=== PATIENT | male | born 1950 | race American Indian/Alaskan Native ===

== ENCOUNTER 2016-07-15 18:23 | Inpatient (IN) | payer BC, OTHER ==
--- NOTE | 2016-07-15 18:37 | PDOC ---
History of Present Illness - General Chief Complaint: Alcohol intoxication Stated Complaint: R EAR BLEED/INTOX Time Seen by Provider: 07/15/16 18:31 History Source: Patient Exam Limitations: No Limitations - History of Present Illness Initial Comments: CHIEF COMPLAINT: 65 y/o male BIB EMS with bleeding from left ear. HISTORY OF PRESENT ILLNESS: The patient's left the patient at home at 2pm. She came home around 5pm and found him in the bed, bleeding from his left ear. The patient refuses to say what happened. He is only c/o chest pain. He denies alcohol ingestion today. He is a poor historian. He is on plavix. Vital signs on arrival are within normal limits. REVIEW OF SYSTEMS: (Poor historian; received ROS from EMS) GENERAL/CONSTITUTIONAL: No fever HEAD, EYES, EARS, NOSE AND THROAT: +bleeding from left ear and swollen left face. PHYSICAL EXAM: GENERAL: The patient is awake, alert, with slowed responses but in NAD. HEAD: Swelling and ecchymosis to the left side of the face where the mandible meets the ear with TTP in that area. ENT: Pupils equal, round and reactive to light, extraocular movements intact, sclera anicteric, conjunctiva clear. Neck supple. Copious clotted blood seen in the left ear canal. Appears to be a skin flap at the entrance to the left canal at the tragus. Cannot tell whether the laceration extends into the canal. LUNGS: Clear to auscultation bilaterally. Normal excursion. No respiratory distress or use of accessory muscles. CV: RRR, S1/S2, no MRG. Cap refill < 2 sec. ABDOMEN: Soft, non-distended, non-tender even to deep palpation, no hepatomegaly or splenomegaly, no masses. EXTREMITIES: Normal range of motion, no edema. NEUROLOGICAL: Slowed speech. Gait not assessed in the ER. Pt A&O x 3. his speech is slurred SKIN: Warm, dry, normal turgor, no rashes or lesions noted. Past History - Past Medical History Allergies/Adverse Reactions: Allergies Allergy/AdvReac Type Severity Reaction Status Date / Time No Known Allergies Allergy Verified 07/15/16 18:38 Home Medications: Ambulatory Orders Aspirin [ASA -] 81 mg PO DAILY 06/06/12 Carvedilol [Coreg] 25 mg PO BID 12/09/12 Metformin HCl [Glucophage] 1,000 mg PO BID 06/06/12 Clopidogrel Bisulfate [Plavix] 75 mg PO DAILY 06/25/12 Cardiac Disorders: Yes (cad, 2 stents) Diabetes: Yes HTN: Yes Suicide Attempt (Hx): No - Surgical History Cardiac Surgery: Yes (card stent) - Immunization History Immunization Up to Date: Yes - Psycho/Social/Smoking Cessation Hx Anxiety: No Suicidal Ideation: No Smoking Status: No Smoking History: Never smoked Number of Cigarettes Smoked Daily: 0 Hx Alcohol Use: Yes Drug/Substance Use Hx: No Substance Use Type: Alcohol Procedures - Laceration/Wound Repair Left Ear Wound Length: 2.6 to 5.0 cm Wound Explored: clean Wound's Depth, Shape: into muscle, irregular, flap Irrigated w/ Saline: Yes Betadine Prep: Yes Anesthesia: 1% Lidocaine Amount of Anesthetic (ccs): 4 Suture Size/Type: 4:0 Number of Sutures: 5 Heart Score/ECG Review - ECG Intrepretation Comment:: Twelve-lead EKG was performed and reviewed by Dr. Tolliver. There is normal sinus rhythm with a normal rate. Left axis deviation. The intervals are normal. Inferior infarct, age undetermined. Impression: Abnormal twelve-lead EKG ED Treatment Course - LABORATORY CBC & Chemistry Diagram: 07/15/16 18:40 07/15/16 18:40 Medical Decision Making - Medical Decision Making A/P: 65 y/o male with unknown facial/head trauma, bleeding from left ear, possibly intoxicated. Plan is as follows: 1. Labs 2. ETOH/drug screen 3. Head CT 4. Facial bones CT 5. IV fluids Head CT IMPRESSION: No CT evidence of acute intracranial pathology. There is partial opacification of the left external auditory canal probably representing cerumen , and less likely other material. correlate clinically. Facial Bones CT IMPRESSION: No fracture is identified. Subcutaneous edema is seen along the left lateral aspect of the mid to upper face. There also appears to be soft tissue edema in the region of the pinna of the left ear. There is partial opacification of the left external auditory canal which may be on the basis of cerumen, edema and/or blood. Correlate clinically. No gross temporal bone fracture is visualized. Laboratory Tests 07/15/16 18:40 Total Bilirubin 1.2 H AST 79 H D ALT 54 D Alkaline Phosphatase 256 H D Creatine Kinase 732 H D Creatine Kinase Index Pending CK-MB (CK-2) 4.096 H Sutured patient's ear and was able to control the bleeding. Spoke with Erik García and he accepts admission. He would like Dr. Cisneros, Dr. Zaragoza, Dr. Blood and Dr. Arguello for consults. He would like the patient on tele. 07/16/16 00:55 *DC/Admit/Observation/Transfer Diagnosis at time of Disposition: Laceration of ear Head trauma Qualifiers: Encounter type: initial encounter Qualified Code(s): S09.90XA - Unspecified injury of head, initial encounter Alcohol intoxication Qualifiers: Complication of substance-induced condition: with unspecified complication Qualified Code(s): F10.129 - Alcohol abuse with intoxication, unspecified Facial trauma Qualifiers: Encounter type: initial encounter Qualified Code(s): S09.93XA - Unspecified injury of face, initial encounter Chest pain Qualifiers: Chest pain type: unspecified Qualified Code(s): R07.9 - Chest pain, unspecified - Discharge Dispostion Condition at time of disposition: Stable Admit: Yes - Referrals Referrals: Cheyenne Mckinley MD [Primary Care Provider] -
[2016-07-15 18:58] LABS: MCH 34.9 pg (25.7-33.7); MCHC 34.4 g/dl (32.0-35.9); MEAN CELL VOLUME 101.7 fl (80-96); MEAN PLT VOLUME 8.8 fl (7.5-11.1); PLATELET COUNT 91 K/MM3 (134-434); RDW 14.1 % (11.9-15.9); WHITE BLOOD COUNT 6.1 K/mm3 (4.0-10.0)
[2016-07-15 19:07] VITALS: BMI 25.0
[2016-07-15 19:12] LABS: INR 1.34 (0.82-1.09); PROTHROMBIN TIME (PATIENT) 14.8 SEC (9.98-11.88)
[2016-07-15 19:33] LABS: ALBUMIN 3.4 g/dl (3.4-5.0); ANION GAP 9 (8-16); BILIRUBIN,TOTAL 1.2 mg/dL (0.2-1.0); CALCIUM 8.8 mg/dL (8.5-10.1); CO2 24 mmol/L (21-32); CREATININE 0.8 mg/dL (0.7-1.3); GLUCOSE,RANDOM 178 mg/dL (74-106); SGOT/AST 79 U/L (15-37); SGPT/ALT 54 U/L (12-78); TOT PROT 8.2 g/dl (6.4-8.2)
[2016-07-15 19:35] LABS: ALK PHOS 256 U/L (45-117); TROPONIN I < 0.02 ng/ml (0.00-0.05)
[2016-07-15 20:02] LABS: PLATELET ESTIMATE SLT DECREASED (NORMAL)
[2016-07-15 20:03] LABS: PLATELET COMMENT2 NO CLOTTING DETECTED
[2016-07-15] MEDS ORDERED: SODIUM CHLORIDE 1,000 ML IV STA (23:34)
[2016-07-15] MEDS ORDERED: DEXTROSE 5%-0.45% SALINE 1,000 ML IV SCH (23:45)
[2016-07-15] MEDS ORDERED: ACETAMINOPHEN 325 MG TABLET (FP) PO PRN (23:49)
[2016-07-16] MEDS ORDERED: FOLIC ACID 1 MG TABLET (FP) PO ONE (00:13)
[2016-07-16] MEDS ORDERED: POTASSIUM CHLORIDE 10 MEQ in SODIUM CHLORIDE 0.45% 1,000 ML IVPB SCH (00:15)
[2016-07-16] MEDS ORDERED: FOLIC ACID 1 MG TABLET (FP) ONE (01:24)
[2016-07-16] MEDS ORDERED: KCL 10 MEQ IVPB 100 ML IVPB ONE (01:25)
[2016-07-16 01:53] LABS: URINE APPEARANCE CLEAR; URINE BILIRUBIN NEGATIVE (NEGATIVE); URINE BLOOD NEGATIVE (NEGATIVE); URINE COLOR LTYELLOW; URINE GLUCOSE (UA) 1+ (NEGATIVE); URINE KETONE NEGATIVE (NEGATIVE); URINE LEUK ESTERASE NEGATIVE (NEGATIVE); URINE NITRITE NEGATIVE (NEGATIVE); URINE PROTEIN NEGATIVE (NEGATIVE); URINE UROBILINOGEN NEGATIVE E.U./dl (0.2-1.0)
[2016-07-16 03:58] LABS: URINE MARIJUANA THC NEGATIVE ng/ml (CUTOFF=50)
[2016-07-16 04:32] VITALS: BP 130/69; PULSE 91; TEMP 98.2
[2016-07-16] MEDS ORDERED: PNEUMOC 13-VAL CONJ-DIP CRM/PF 0.5 ML DISP.SYRIN IM ONE (04:32)
[2016-07-16] MEDS ORDERED: PNEUMOCOCCAL 23 VACCINE 0.5 ML VIAL IM ONE ×2 (06:30→09:00)
[2016-07-16 07:19] LABS: BASOPHIL 1.3 % (0-2.0); MCH 36.2 pg (25.7-33.7); MCHC 35.9 g/dl (32.0-35.9); MEAN CELL VOLUME 100.8 fl (80-96); MEAN PLT VOLUME 8.3 fl (7.5-11.1); NEUTROPHILS 51.8 % (42.8-82.8); PLATELET COUNT 80 K/MM3 (134-434); RDW 14.3 % (11.9-15.9); WHITE BLOOD COUNT 6.9 K/mm3 (4.0-10.0)
[2016-07-16 08:26] LABS: CALCIUM 8.4 mg/dL (8.5-10.1)
[2016-07-16 08:28] LABS: CREATININE 0.7 mg/dL (0.7-1.3)
--- NOTE | 2016-07-16 09:42 | CONSULT ---
Consult Consult Specialty:: Cardiology - History of Present Illness History of Present Illness: CHIEF COMPLAINT: 65 y/o male BIB EMS with bleeding from left ear. HISTORY OF PRESENT ILLNESS: The patient's left the patient at home at 2pm. She came home around 5pm and found him in the bed, bleeding from his left ear. The patient refuses to say what happened. He is only c/o chest pain. He denies alcohol ingestion today. He is a poor historian. He is on plavix. PCI stent 10 years ago at [facility]. no f/u with cardiology - History Source History Provided By: Patient, Medical Record - Past Medical History Cardio/Vascular: Yes: CAD Endocrine: Yes: Diabetes Mellitus - Alcohol/Substance Use Hx Alcohol Use: Yes - Smoking History Smoking history: Never smoked Have you smoked in the past 12 months: No Aproximately how many cigarettes per day: 0 Home Medications - Allergies Allergies/Adverse Reactions: Allergies Allergy/AdvReac Type Severity Reaction Status Date / Time No Known Allergies Allergy Verified 07/15/16 18:38 - Home Medications Home Medications: Ambulatory Orders Aspirin [ASA -] 81 mg PO DAILY 06/06/12 Carvedilol [Coreg] 25 mg PO BID 06/06/12 Metformin HCl [Glucophage] 1,000 mg PO BID 06/06/12 Clopidogrel Bisulfate [Plavix] 75 mg PO DAILY 06/25/12 Review of Systems - Review of Systems Constitutional: reports: No Symptoms Eyes: reports: No Symptoms HENT: reports: No Symptoms Neck: reports: No Symptoms Cardiovascular: reports: No Symptoms Gastrointestinal: reports: No Symptoms Genitourinary: reports: No Symptoms Breasts: reports: No Symptoms Reported Musculoskeletal: reports: No Symptoms Integumentary: reports: No Symptoms Neurological: reports: No Symptoms Endocrine: reports: No Symptoms Hematology/Lymphatic: reports: No Symptoms Psychiatric: reports: No Symptoms Vital Signs: Vital Signs Temperature 98.2 F 07/16/16 04:22 Pulse Rate 91 H 07/16/16 04:22 Respiratory Rate 20 07/16/16 04:22 Blood Pressure 130/69 07/16/16 04:22 O2 Sat by Pulse Oximetry (%) 97 07/16/16 04:22 Constitutional: Yes: Well Nourished, No Distress, Calm Eyes: Yes: WNL, Conjunctiva Clear, EOM Intact HENT: Yes: WNL, Atraumatic, Normocephalic, Other (l side fascial swelling) Neck: Yes: WNL, Supple, Trachea Midline Respiratory: Yes: WNL, Regular, CTA Bilaterally Gastrointestinal: Yes: WNL, Normal Bowel Sounds Renal/: Yes: WNL Cardiovascular: Yes: WNL, Regular Rate and Rhythm Musculoskeletal: Yes: WNL Extremities: Yes: WNL Integumentary: Yes: WNL Neurological: Yes: WNL, Alert, Oriented ...Motor Strength: WNL Psychiatric: Yes: WNL, Alert, Oriented - Other Data Labs, Other Data: CBC, BMP 07/16/16 05:35 07/16/16 05:35 INR, PTT INR 1.34 (0.82-1.09) H 07/15/16 18:40 Imaging - Results Chest X-ray: Image Reviewed (no i/e) EKG: Image Reviewed (sr rep abn) Problem List - Problems (1) Alcohol intoxication Code(s): F10.129 - ALCOHOL ABUSE WITH INTOXICATION, UNSPECIFIED Qualifiers: Complication of substance-induced condition: with unspecified complication Qualified Code(s): F10.129 - Alcohol abuse with intoxication, unspecified (2) Chest pain Code(s): R07.9 - CHEST PAIN, UNSPECIFIED Qualifiers: Chest pain type: unspecified Qualified Code(s): R07.9 - Chest pain, unspecified (3) Facial trauma Code(s): S09.93XA - UNSPECIFIED INJURY OF FACE, INITIAL ENCOUNTER Qualifiers: Encounter type: initial encounter Qualified Code(s): S09.93XA - Unspecified injury of face, initial encounter (4) Head trauma Code(s): S09.90XA - UNSPECIFIED INJURY OF HEAD, INITIAL ENCOUNTER Qualifiers: Encounter type: initial encounter Qualified Code(s): S09.90XA - Unspecified injury of head, initial encounter (5) Laceration of ear Code(s): S01.319A - LACERATION WITHOUT FOREIGN BODY OF UNSP EAR, INIT ENCNTR Assessment/Plan etoh intoxication noncomplience dm cad s/p pci atypical cp plan hld telemetry r/o mi echo mibi st when stable keep ldl below 70 mg/dl etoh detox
--- NOTE | 2016-07-16 09:56 | CONSULT ---
Consult Consult Specialty:: [facility] Referred by:: Mayo Reason for Consultation:: Head Trauma - History of Present Illness History of Present Illness: 65 man with pmh CAD OA DM presented with facial and head trauma ptient signed ourt AMA - History Source History Provided By: Patient, Family Member Limitations to Obtaining History: No Limitations - Alcohol/Substance Use Hx Alcohol Use: Yes - Smoking History Smoking history: Never smoked Have you smoked in the past 12 months: No Aproximately how many cigarettes per day: 0 Home Medications - Allergies Allergies/Adverse Reactions: Allergies Allergy/AdvReac Type Severity Reaction Status Date / Time No Known Allergies Allergy Verified 07/15/16 18:38 - Home Medications Home Medications: Ambulatory Orders Aspirin [ASA -] 81 mg PO DAILY 06/06/12 Carvedilol [Coreg] 25 mg PO BID 06/06/12 Metformin HCl [Glucophage] 1,000 mg PO BID 06/06/12 Clopidogrel Bisulfate [Plavix] 75 mg PO DAILY 06/25/12 Family Disease History - Family Disease History Family History: Denies (CVA) Review of Systems - Review of Systems Constitutional: reports: No Symptoms Eyes: reports: No Symptoms HENT: reports: No Symptoms Physical Exam-Neuro Vital Signs: Vital Signs Temperature 98.2 F 07/16/16 04:22 Pulse Rate 91 H 07/16/16 04:22 Respiratory Rate 20 07/16/16 04:22 Blood Pressure 130/69 07/16/16 04:22 O2 Sat by Pulse Oximetry (%) 97 07/16/16 04:22 Constitutional: Yes: Well Nourished Neck: Yes: WNL Labs: CBC, BMP 07/16/16 05:35 07/16/16 05:35 INR, PTT INR 1.34 (0.82-1.09) H 07/15/16 18:40 - Neuro Exam Level Of Consciousness: Yes: Oriented to Person, Oriented to Place, Oriented to Time Eyes: Yes: PERRLA Speech: WNL Dominant Hand: Right Imaging - Results Cat Scan: Image Reviewed Problem List - Problems (1) Alcohol intoxication Code(s): F10.129 - ALCOHOL ABUSE WITH INTOXICATION, UNSPECIFIED Qualifiers: Complication of substance-induced condition: with unspecified complication Qualified Code(s): F10.129 - Alcohol abuse with intoxication, unspecified (2) Head trauma Code(s): S09.90XA - UNSPECIFIED INJURY OF HEAD, INITIAL ENCOUNTER Qualifiers: Encounter type: initial encounter Qualified Code(s): S09.90XA - Unspecified injury of head, initial encounter Assessment/Plan Postconcussion syndrome Head Trauma Seizure rule out 1. Neuro checks 2. Fall and seizure precautions 3. EEG 4. Thiamine and Folate 5. Blood work
[2016-07-16] MEDS ORDERED: PANTOPRAZOLE SODIUM 100 ML IVPB SCH (10:00)
[2016-07-16] MEDS ORDERED: THIAMINE HCL 200 MG/2 ML VIAL IVPB SCH (10:00)
--- NOTE | 2016-07-16 10:30 | EKG ---
Test Reason : Blood Pressure : / mmHG Vent. Rate : 076 BPM Atrial Rate : 076 BPM P-R Int : 202 ms QRS Dur : 098 ms QT Int : 394 ms P-R-T Axes : 036 -63 043 degrees QTc Int : 443 ms NORMAL SINUS RHYTHM LEFT AXIS DEVIATION INFERIOR INFARCT (CITED ON OR BEFORE 18-APR-2012) ABNORMAL ECG WHEN COMPARED WITH ECG OF 02-DEC-2015 11:59, QT HAS SHORTENED Confirmed by BRIAN PEARSON, JACK ([id number]) on 07/16/2016 10:30:03 AM Referred By: Confirmed By:JACK TORRES MD
--- NOTE | 2016-07-16 15:03 | HP ---
Admitting History and Physical - Primary Care Physician PCP: Dr Childs/ Dr Mckinley - Admission Chief Complaint: Pt had Lt sided facial Injury,ETOH abuse History of Present Illness: Lt sided Facial Injury ETOH abuse History Source: Patient, Family Member Limitations to Obtaining History: Intoxication, Uncooperative - Past Medical History Cardiovascular: Yes: CAD Endocrine: Yes: Diabetes Mellitus - Smoking History Smoking history: Never smoked Have you smoked in the past 12 months: No Aproximately how many cigarettes per day: 0 - Alcohol/Substance Use Hx Alcohol Use: Yes Home Medications - Allergies Allergies/Adverse Reactions: Allergies Allergy/AdvReac Type Severity Reaction Status Date / Time No Known Allergies Allergy Verified 07/15/16 18:38 - Home Medications Home Medications: Ambulatory Orders Aspirin [ASA -] 81 mg PO DAILY 06/06/12 Carvedilol [Coreg] 25 mg PO BID 06/06/12 Metformin HCl [Glucophage] 1,000 mg PO BID 06/06/12 Clopidogrel Bisulfate [Plavix] 75 mg PO DAILY 06/25/12 Family Disease History - Family Disease History Family History: Unable to Obtain Review of Systems - Review of Systems Constitutional: reports: Lethargy HENT: reports: Ear Pain, Other Cardiovascular: reports: Other Respiratory: reports: No Symptoms Gastrointestinal: reports: No Symptoms Genitourinary: reports: No Symptoms Integumentary: reports: Bruising (Lt facial Injury) Physical Examination Vital Signs: Vital Signs Temperature 98.2 F 07/16/16 04:22 Pulse Rate 91 H 07/16/16 04:22 Respiratory Rate 20 07/16/16 04:22 Blood Pressure 130/69 07/16/16 04:22 O2 Sat by Pulse Oximetry (%) 96 07/16/16 09:00 Labs: CBC, BMP 07/16/16 05:35 07/16/16 05:35 Problem List - Problems (1) Alcohol intoxication Assessment/Plan: ETOh protocol Code(s): F10.129 - ALCOHOL ABUSE WITH INTOXICATION, UNSPECIFIED Qualifiers: Complication of substance-induced condition: with unspecified complication (2) Chest pain Code(s): R07.9 - CHEST PAIN, UNSPECIFIED Qualifiers: Chest pain type: unspecified Qualified Code(s): R07.9 - Chest pain, unspecified (3) Facial trauma Assessment/Plan: Neuro watch/ Neuro consult Code(s): S09.93XA - UNSPECIFIED INJURY OF FACE, INITIAL ENCOUNTER Qualifiers: Encounter type: initial encounter Qualified Code(s): S09.93XA - Unspecified injury of face, initial encounter (4) Head trauma Assessment/Plan: Neurowatch Code(s): S09.90XA - UNSPECIFIED INJURY OF HEAD, INITIAL ENCOUNTER Qualifiers: Encounter type: initial encounter Qualified Code(s): S09.90XA - Unspecified injury of head, initial encounter (5) Laceration of ear Assessment/Plan: ENT consult Code(s): S01.319A - LACERATION WITHOUT FOREIGN BODY OF UNSP EAR, INIT ENCNTR
== END 2016-07-16 10:45 | disposition left against medical advice (07) | DRG 156 ==
LOC: JER 18:23 → JERBED 23:50 → J4W 07-16 04:20
PROVIDERS: ADMIT Internal Medicine; ATTEND Internal Medicine
DX: S01.312A Laceration without foreign body of left ear, initial encounter (principal); I25.10 Atherosclerotic heart disease of native coronary artery without angina pectoris; E11.9 Type 2 diabetes mellitus without complications; F10.129 Alcohol abuse with intoxication, unspecified; R07.89 Other chest pain; S09.90XA Unspecified injury of head, initial encounter; S09.93XA Unspecified injury of face, initial encounter; X58.XXXA Exposure to other specified factors, initial encounter; Y92.098 Other place in other non-institutional residence as the place of occurrence of the external cause; M19.90 Unspecified osteoarthritis, unspecified site
CPT/HCPCS: 36415; 70450-TC; 70486-TC; 71010-TC; 80048; 80053; 80307; 81003; 82550; 82553; 84484; 85025; 85610; 93005; 93010; 99285-25

== ENCOUNTER 2017-05-26 07:31 | Day surgery (SDC) | payer OTHER, BC ==
[2017-05-26] MEDS ORDERED: PROPOFOL 20 ML ONE ×2 (07:50)
[2017-05-26] MEDS ORDERED: LIDOCAINE HCL 2% (20ML MULTI-DOSE VIAL) NR ONE (07:50)
[2017-05-26 08:03] VITALS: BMI 23.3
[2017-05-26 08:31] VITALS: TEMP 97.8
[2017-05-26 09:07] VITALS: PULSE 62
[2017-05-26 10:50] VITALS: BP 137/81
--- NOTE | 2017-05-27 15:41 | PATH ---
Surgical Pathology Report Patient Name: YESENIA ABERNATHY [facility]. Rec. #: [id number] /Age/Gender: 1950 (Age: 66) / M Account: [id number] Location: U-ENDOSCOPY Taken: 05/26/2017 Received: 05/26/2017 Reported: 05/27/2017 Physicians: Javed Contreras M.D. Specimen(s) Received BX ANTRUM Clinical History Preoperative diagnosis: Follow-up alcoholic cirrhosis Postoperative diagnosis: Gastric varices Final Diagnosis ANTRUM, BIOPSY: GASTRIC MUCOSA SHOWING VASCULAR CONGESTION WITH MINIMALCHRONIC INFLAMMATION. IMMUNOSTAIN IS NEGATIVE FOR H. PYLORI ORGANISMS. Electronically Signed Marisa Park M.D. Gross Description Received in formalin, labeled "biopsy antrum" are 2 raphael, irregular portions of soft tissue measuring 0.4 and 0.6 cm. in greatest dimension. The specimens are submitted in toto in one cassette. 05/26/201705/26/2017
== END 2017-05-26 09:10 | disposition home or self-care (01) ==
LOC: JASU-ENDO 07:31
PROVIDERS: ATTEND Internal Medicine Gastroenterology
PROC: 0DB68ZX Excision of Stomach, Via Natural or Artificial Opening Endoscopic, Diagnostic (ICD-10-PCS; principal; 2017-05-26 08:45)
DX: I85.00 Esophageal varices without bleeding (principal); I86.4 Gastric varices; K70.30 Alcoholic cirrhosis of liver without ascites
CPT/HCPCS: 88305-TC; 88342-TC

== ENCOUNTER 2018-06-04 08:39 | Inpatient (IN) | payer OTHER, BC ==
--- NOTE | 2018-06-04 08:51 | PDOC ---
History of Present Illness - General Chief Complaint: Chest Pain Stated Complaint: CHEST PAIN - History of Present Illness Initial Comments: The patient is a 67M w/ a history of CAD s/p stent x2 10y ago, HTN, T2DM who presents for evaluation of 3d of intermittent, non-radiating, 'cramping', left sided chest pain. Patient reports associated shortness of breath but is unable to clearly describe its association to is pain or the time course. The patient is oriented to person only and is unable to give a thorough history. Per the patient's , the patient has a history of EtOH and per chart review the patient has a history of cirrhosis. Per the , the patient's friend patient 4d ago and since that time the patient has been drinking more and complaining of generalized pain. She denies that he has ever had withdrawal symptoms. 06/04/18 09:13 Past History - Past Medical History Allergies/Adverse Reactions: Allergies Allergy/AdvReac Type Severity Reaction Status Date / Time No Known Allergies Allergy Verified 06/04/18 09:11 Home Medications: Ambulatory Orders Aspirin [ASA -] 81 mg PO DAILY 06/06/12 Carvedilol [Coreg] 25 mg PO BID 06/06/12 metFORMIN HCL [Glucophage -] 1,000 mg PO BID 06/06/12 Clopidogrel Bisulfate [Plavix -] 75 mg PO DAILY 06/25/12 Glimepiride [Amaryl -] 4 mg PO DAILY@0700 05/25/17 Insulin (Levemir) [Levemir Flexpen -] 35 units SQ HS 05/25/17 Simvastatin 20 mg PO DAILY 05/25/17 Insulin (Levemir) [Levemir Flexpen -] 30 units SQ DAILY 05/26/17 Empagliflozin [Jardiance] 10 mg PO DAILY 06/04/18 Cardiac Disorders: Yes (cad, 2 stents) Diabetes: Yes HTN: Yes - Surgical History Cardiac Surgery: Yes (card stent) - Immunization History Immunization Up to Date: Yes - Suicide/Smoking/Psychosocial Hx Smoking Status: No Smoking History: Never smoked Have you smoked in the past 12 months: No Number of Cigarettes Smoked Daily: 0 Hx Alcohol Use: Yes Drug/Substance Use Hx: No Substance Use Type: Alcohol Review of Systems - Review of Systems Able to Perform ROS?: No (medical condition) Is the patient limited Montserratian proficient: No *Physical Exam - Vital Signs 12/07/18 08:51 - Physical Exam Comments: GENERAL: Awake, tired appearing, oriented to person only, in no acute distress HEAD: No signs of trauma, normocephalic, atraumatic EYES: PERRLA, EOMI, sclera anicteric, conjunctiva clear ENT: Hearing grossly normal, nares patent, oropharynx clear without exudates. Moist mucosa LUNGS: No distress, speaks full sentences, clear to auscultation bilaterally HEART: Regular rate and rhythm, normal S1 and S2, no murmurs appreciated, no chest wall TTP, peripheral pulses normal and equal bilaterally ABDOMEN: Soft, nontender, normoactive bowel sounds. No guarding, no rebound EXTREMITIES : Normal inspection, Normal range of motion, no edema. No clubbing or cyanosis NEUROLOGICAL: Cranial nerves II through XII grossly intact. Normal speech, normal gait, no focal sensorimotor deficits SKIN: Warm, Dry, normal turgor, no rashes or lesions noted 06/04/18 08:51 ED Treatment Course - LABORATORY CBC & Chemistry Diagram: 06/04/18 09:40 06/04/18 09:40 Medical Decision Making - Medical Decision Making The patient is a 67M w/ a history of CAD s/p stent x2 (plavix), HTN, T2DM, EtOH abuse, and cirrhosis who presents for evaluation of 3d of intermittent, non- radiating, 'cramping', L-sided chest pain ED Course CMP, CBC, ammonia, cardiac profile ECG CXR 06/04/18 09:20 Ammonia 135 -Will give lactulose Hypokalemia 3.3 -Will replete with KCl 80mg PO once Trop I neg CT Head 06/04/2018 Since 02/03/2017, there remains moderate volume loss and ventricular dilatation. Probable mild periventricular chronic microvascular ischemic disease changes are present. No mass lesion, gross acute infarct or intracranial hemorrhage are identified. IMPRESSION: No significant interval change or acute intracranial pathology is identified. Correlate clinically to determine further evaluation and follow-up. 06/04/18 12:44 L-arm BP 125/79 R-arm BP 130/81 06/04/18 12:58 Plan for admission for hyperammoniaemia 06/04/18 12:59 EtOH level Dispo: admit 06/04/18 15:35 *DC/Admit/Observation/Transfer Diagnosis at time of Disposition: Hyperammonemia, Hypokalemia Chest pain Qualifiers: Chest pain type: unspecified Qualified Code(s): R07.9 - Chest pain, unspecified - Discharge Dispostion Condition at time of disposition: Fair Decision to Admit order: Yes - Referrals - Patient Instructions - Post Discharge Activity
--- NOTE | 2018-06-04 09:31 | PDOC ---
Attending Attestation - [facility] HPI: The patient is a 67 year old male, with a significant past medical history of CAD (s/p stent x2 10yrs ago), HTN, DM, alcoholic cirrhosis, alcohol abuse, who presents to the emergency department with, 3 days of left sided chest pain. Patient describes his chest pain as left sided, intermittent, cramping with associated nausea and shortness of breath. As per patients , he recently found out his friend 3 days ago and since then he has been drinking more. She endorses he has not drank alcohol today. notes, patient had an abnormal head CT a year ago in [facility] and when he went to a neurosurgeon follow- up in [place] who was advised there were no pertinent findings. Patient was seen by his pan operator a month ago where an EKG and Echo was done. She notes he has a follow-up appointment with Dr. Childs on Thursday 06/07. He denies any recent fevers, chills, headache or dizziness. He denies any recent vomit, diarrhea or constipation. He denies any recent dysuria, frequency , urgency or hematuria. Allergies: NKDA Past surgical history: Cardiac stenting x2 (2007) Social History: Alcohol abuse Primary Care Physician: Dr. 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 EYES: extraocular movements intact, sclera anicteric, conjunctiva clear. ENT: Normal voice, Moist mucous membranes. NECK: Normal range of motion, supple, no focal bony tendernes on cervical/ throacic spine LUNGS: Breath sounds equal, clear to auscultation bilaterally. No wheezes, no rhonchi, no rales. HEART: Regular rate and rhythm, normal S1 and S2 without murmur, rub or gallop. ABDOMEN: Soft, nontender, normoactive bowel sounds. No guarding, no rebound. No CVA tenderness EXTREMITIES: Normal range of motion, NEUROLOGICAL: No facial assymetry, Normal speech, movin gall 4 extremities spontaneously and symmetrically PSYCH: Normal mood, normal affect. SKIN: Warm, Dry, normal turgor, - Medical Decision Making 06/04/18 10:23 67y F hx of CAD, htn, dm, etoh abuse, cirruosis with gastric varices presents with 3 days of intermittnent L sided chest pain that is non excertaonal, constant, associated mild sob. pt also endorses sarah enausea. ddx - acs, pancratitis, gastritis, will ck cxr, ekg, lipase, labs head ct as pt is altered - intox vs ammoniaeima 06/05/18 12:25 labs noted for hyperammonemia - suspec thtis ay be the cause of the pts AMS - wll tx with lactulosec trop neg CT head neg will admit for further management <Jose Becerra - Last Filed: 06/05/18 16:27> Heart Score/ECG Review - ECG Impressions Comment:: 06/04/18 10:23 Twelve-lead EKG was performed and reviewed by me. There is normal sinus rhythm with a normal rate. rate of 84 Left axis deviation Q waves in inferior leads <Jose Becerra - Last Filed: 06/05/18 16:27> Attestations - Attestations 06/04/18 10:35 Documentation prepared by Robel Mitchell, acting as medical transcription for Jose Becerra MD. <Robel Mitchell - Last Filed: 06/04/18 10:36>
[2018-06-04] MEDS ORDERED: ONDANSETRON 4 MG/2 ML VIAL IVPB ONE (10:11)
[2018-06-04] MEDS ORDERED: ONDANSETRON 4 MG/2 ML VIAL ONE (10:15)
[2018-06-04 10:55] LABS: INR 1.14 (0.83-1.09); PROTHROMBIN TIME (PATIENT) 13.5 SEC (9.7-13.0)
[2018-06-04 10:58] LABS: ACTIVATED PTT 25.6 SECONDS (25.2-36.5)
[2018-06-04 11:27] LABS: ALBUMIN 2.8 g/dl (3.4-5.0); ALK PHOS 187 U/L (45-117); ANION GAP 15 MMOL/L (8-16); BILIRUBIN,TOTAL 1.9 mg/dL (0.2-1); BLOOD UREA NITROGEN 6 mg/dL (7-18); CALCIUM 7.8 mg/dL (8.5-10.1); CHLORIDE 102 mmol/L (98-107); CO2 23 mmol/L (21-32); CREATININE 0.6 mg/dL (0.55-1.3); GLUCOSE,RANDOM 166 mg/dL (74-106); HEMATOCRIT 37.8 % (35.4-49); HEMOGLOBIN 13.2 GM/dL (11.7-16.9); LIPASE 379 U/L (73-393); MCH 34.1 pg (25.7-33.7); MEAN CELL VOLUME 97.5 fl (80-96); MEAN PLT VOLUME 7.8 fl (7.5-11.1); PLATELET COUNT 56 K/MM3 (134-434); POTASSIUM 3.3 mmol/L (3.5-5.1); RBC 3.88 M/mm3 (4.00-5.60); RDW 14.7 % (11.9-15.9); SGOT/AST 90 U/L (15-37); SGPT/ALT 57 U/L (13-61); SODIUM 140 mmol/L (136-145); TOT PROT 6.9 g/dl (6.4-8.2); WHITE BLOOD COUNT 2.6 K/mm3 (4.0-10.0)
[2018-06-04] MEDS ORDERED: POTASSIUM CHLORIDE ORAL LIQUID 20 MEQ/15 ML PO ONE (12:43)
[2018-06-04] MEDS ORDERED: LACTULOSE 20 GM/30 ML UDC (FOR ORAL USE ONLY) PO ONE (12:50)
--- NOTE | 2018-06-04 14:32 | HP ---
Admitting History and Physical - Primary Care Physician PCP: Vazquez Joshua - Admission History of Present Illness: dictated - Past Medical History Cardiovascular: Yes: CAD Endocrine: Yes: Diabetes Mellitus - Smoking History Smoking history: Never smoked Have you smoked in the past 12 months: No Aproximately how many cigarettes per day: 0 - Alcohol/Substance Use Hx Alcohol Use: Yes Home Medications - Allergies Allergies/Adverse Reactions: Allergies Allergy/AdvReac Type Severity Reaction Status Date / Time No Known Allergies Allergy Verified 06/04/18 09:11 - Home Medications Home Medications: Ambulatory Orders Aspirin [ASA -] 81 mg PO DAILY 06/06/12 Carvedilol [Coreg] 25 mg PO BID 06/06/12 metFORMIN HCL [Glucophage -] 1,000 mg PO BID 06/06/12 Clopidogrel Bisulfate [Plavix -] 75 mg PO DAILY 06/25/12 Glimepiride [Amaryl -] 4 mg PO DAILY@0700 05/25/17 Insulin (Levemir) [Levemir Flexpen -] 35 units SQ HS 05/25/17 Simvastatin 20 mg PO DAILY 05/25/17 Insulin (Levemir) [Levemir Flexpen -] 30 units SQ DAILY 05/26/17 Empagliflozin [Jardiance] 10 mg PO DAILY 06/04/18 Physical Examination Vital Signs: Vital Signs Temperature 97.7 F 06/04/18 08:40 Pulse Rate 77 06/04/18 11:46 Respiratory Rate 20 06/04/18 11:46 Blood Pressure 122/78 06/04/18 11:46 O2 Sat by Pulse Oximetry (%) 95 06/04/18 11:46 Labs: CBC, BMP 06/04/18 09:40 06/04/18 09:40
[2018-06-04] MEDS ORDERED: LACTULOSE 20 GM/30 ML UDC (FOR ORAL USE ONLY) PO PRN (14:40)
--- NOTE | 2018-06-04 15:27 | HP ---
DATE OF ADMISSION: DATE OF DICTATION: 06/04/2018 HISTORY: This patient is a 67-year-old gentleman with extensive medical history of coronary artery disease status post stent x2 about 10 years ago, hypertension, insulin-dependent diabetes, alcoholic cirrhosis who presented to the emergency room with complaint of 3 days of chest pain. The patient is a poor historian. Historian is mainly from the patient's who discussed the case with the ER physician. I also discussed with the ER physician, and when I saw the patient in the emergency room, the patient denies any chest pain but complains of having the abdominal discomfort. Patient is alert. ALLERGIES: No known allergies. MEDICATIONS: Reviewed and noted as documented in the emergency room. FAMILY HISTORY: Nothing contributory. SOCIAL HISTORY: Significant for alcohol abuse. REVIEW OF SYSTEMS: Patient's mri supervisor is Dr. Contreras and barber stylist is Dr. Cisneros. PHYSICAL EXAMINATION: General: The patient in the emergency room is awake, comfortable not in distress. Vital Signs: Stable. HEENT: Significant for mild icterus. Neck: Supple. Trachea midline. Lungs: Diminished at bases. Heart: Sounds are regular. Abdomen: Soft. Mild tenderness present in the epigastric area. Extremities: No edema. Neurologic: Awake. No shaking noted. LABORATORIES: Significant for WBC 2.6, hemoglobin 13.2, hematocrit 37.8, platelets significant for 56, INR 1.14. Electrolytes with potassium 3.3, which was supplemented in the emergency room. Blood sugar 166, alkaline phosphatase 187, and ammonia level significantly high too at 135. Lipase is normal. Troponin is negative. 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 Otherwise, no acute changes. ASSESSMENT AND PLAN: The patient is a 67-year-old male gentleman with extensive past medical history as mentioned admitted due to abdominal pain, altered mental status. Admit to medical floor. I will start him on Protonix. We will check the alcohol level. I will hold aspirin and Plavix at this time. GI and Cardiology to follow. Monitor blood sugar. We will start on lactulose. Ammonia levels to be monitored. We will not start on heparin for DVT prophylaxis due to thrombocytopenia. Overall condition is guarded. Further recommendations will be guided by clinical course. SCOTTIE GANNON M.D. DINO/[id number]
[2018-06-04] MEDS ORDERED: LACTULOSE 20 GM/30 ML UDC (FOR ORAL USE ONLY) ONE (18:25)
[2018-06-04] MEDS ORDERED: PANTOPRAZOLE SODIUM 40 MG/100 ML BAG IVPB ONE (18:26)
[2018-06-04] MEDS ORDERED: POTASSIUM CHLORIDE TABS 20 MEQ TABLET.ER (FP) PO ONE (18:26)
[2018-06-04] MEDS: PANTOPRAZOLE SODIUM 40 MG VIAL IVPUSH SCH (18:35)
--- NOTE | 2018-06-04 19:05 | EKG ---
Test Reason : Blood Pressure : / mmHG Vent. Rate : 084 BPM Atrial Rate : 084 BPM P-R Int : 196 ms QRS Dur : 118 ms QT Int : 416 ms P-R-T Axes : 066 -70 050 degrees QTc Int : 491 ms NORMAL SINUS RHYTHM LEFT AXIS DEVIATION INFERIOR INFARCT (CITED ON OR BEFORE 18-APR-2012) ABNORMAL ECG WHEN COMPARED WITH ECG OF 15-JUL-2016 19:11, QRS DURATION HAS INCREASED Confirmed by BRIAN PEARSON, JACK ([id number]) on 06/04/2018 7:04:59 PM Referred By: Confirmed By:JACK TORRES MD
[2018-06-04 20:28] VITALS: BMI 23.1
[2018-06-04] MEDS: CARVEDILOL 25 MG TABLET (FP) PO SCH (21:39)
--- NOTE | 2018-06-04 22:22 | CON.CARD ---
Consult Consult Specialty:: cardiology Reason for Consultation:: chest pain - History of Present Illness Chief Complaint: Pt c/o left upper quadrant pain History of Present Illness: The patient is a 67 man (b. Nazia) w/ a history of CAD s/p stent x2 10y ago, HTN , DM who presents for evaluation of 3d of intermittent, non-radiating, 'cramping ', left sided chest pain. Patient reports associated shortness of breath but is unable to clearly describe its association to is pain or the time course. The patient is oriented to person only and is unable to give a thorough history. Per the patient's , the patient has a history of EtOH and per chart review the patient has a history of cirrhosis. Per the , the patient's friend 4d ago and since that time the patient has been drinking more and complaining of generalized pain. She denies that he has ever had withdrawal symptoms. Denies ever smoking cigarettes. - History Source History Provided By: Patient, Family Member, Medical Record Limitations to Obtaining History: No Limitations - Past Medical History Cardio/Vascular: Yes: CAD Endocrine: Yes: Diabetes Mellitus - Alcohol/Substance Use Hx Alcohol Use: Yes - Smoking History Smoking history: Never smoked Have you smoked in the past 12 months: No Aproximately how many cigarettes per day: 0 - Social History Usual Living Arrangement: With Spouse Home Medications - Allergies Allergies/Adverse Reactions: Allergies Allergy/AdvReac Type Severity Reaction Status Date / Time No Known Allergies Allergy Verified 06/04/18 09:11 - Home Medications Home Medications: Ambulatory Orders Aspirin [ASA -] 81 mg PO DAILY 06/06/12 Carvedilol [Coreg] 25 mg PO BID 06/06/12 metFORMIN HCL [Glucophage -] 1,000 mg PO BID 06/06/12 Clopidogrel Bisulfate [Plavix -] 75 mg PO DAILY 06/25/12 Glimepiride [Amaryl -] 4 mg PO DAILY@0700 05/25/17 Insulin (Levemir) [Levemir Flexpen -] 35 units SQ HS 05/25/17 Simvastatin 20 mg PO DAILY 05/25/17 Insulin (Levemir) [Levemir Flexpen -] 30 units SQ DAILY 05/26/17 Empagliflozin [Jardiance] 10 mg PO DAILY 06/04/18 Family Disease History - Family Disease History Family History: Denies Review of Systems - Review of Systems Constitutional: reports: Weakness Eyes: reports: No Symptoms HENT: reports: No Symptoms Neck: reports: No Symptoms Cardiovascular: reports: Chest Pain Respiratory: reports: SOB on Exertion Genitourinary: reports: No Symptoms Breasts: reports: No Symptoms Reported Musculoskeletal: reports: Muscle Weakness Neurological: reports: Weakness Endocrine: reports: No Symptoms Hematology/Lymphatic: reports: No Symptoms Psychiatric: reports: Other (addiction (ETOH)) - Risk Factors Known Risk Factors: Yes: Age, Gender Vital Signs: Vital Signs Temperature 98 F 06/04/18 20:25 Pulse Rate 78 06/04/18 20:25 Respiratory Rate 20 06/04/18 20:35 Blood Pressure 140/80 06/04/18 20:25 O2 Sat by Pulse Oximetry (%) 99 06/04/18 20:35 Constitutional: Yes: Thin, Other (answers questions appropriately, but very slowly; stares off, easily distracted) Eyes: Yes: WNL HENT: Yes: WNL Neck: Yes: WNL Respiratory: Yes: Regular Gastrointestinal: Yes: Soft Renal/: No: Anuria Heart Sounds: Yes: S1, S2 Murmur: Yes: Systolic Murmur, Grade 1 Musculoskeletal: Yes: Joint Stiffness Extremities: Yes: Cool Edema: No Peripheral Pulses WNL: Yes Integumentary: Yes: WNL Neurological: Yes: Alert, Weakness Psychiatric: Yes: Other (alcoholism) - Other Data Labs, Other Data: CBC, BMP 06/04/18 09:40 06/04/18 09:40 INR, PTT INR 1.14 (0.83-1.09) H 06/04/18 09:40 Troponin, BNP 06/04/18 09:40 Troponin I < 0.02 Troponin, BNP 06/04/18 09:40 Troponin I < 0.02 Abnormal Lab Results 06/04/18 06/04/18 06/04/18 09:40 09:40 09:40 WBC 2.6 L RBC 3.88 L MCV 97.5 H MCH 34.1 H Plt Count 56 L D PT with INR 13.50 H INR 1.14 H Potassium 3.3 L BUN 6 L Random Glucose 166 H Calcium 7.8 L Total Bilirubin 1.9 H AST 90 H Alkaline Phosphatase 187 H Ammonia Albumin 2.8 L Alcohol, Quantitative 06/04/18 06/04/18 09:50 20:00 WBC RBC MCV MCH Plt Count PT with INR INR Potassium BUN Random Glucose Calcium Total Bilirubin AST Alkaline Phosphatase Ammonia 135.20 H Albumin Alcohol, Quantitative 55.1 H Imaging - Results Ultrasound: Report Reviewed (2017: compatible with liver cirrhosis) EKG: Image Reviewed (NSR; ?old inferior wall infarct; LAD) Problem List - Problems (1) Chest pain Assessment/Plan: 1st TNI <0.02; f/u serially. ? stress MIBI done within the past 6 months by outside ict support engineer. Hx CAD-->coronary stents 10 yrs ago. Code(s): R07.9 - CHEST PAIN, UNSPECIFIED Qualifiers: Chest pain type: unspecified Qualified Code(s): R07.9 - Chest pain, unspecified (2) Hyperammonemia Code(s): E72.20 - DISORDER OF UREA CYCLE METABOLISM, UNSPECIFIED (3) Hypokalemia Assessment/Plan: replete, and keep 4-4.5. Keep Mg 2-2.4, PO4 2.5-4.9 Code(s): E87.6 - HYPOKALEMIA (4) Alcohol intoxication Assessment/Plan: Detox protocol. Code(s): F10.129 - ALCOHOL ABUSE WITH INTOXICATION, UNSPECIFIED Qualifiers: Complication of substance-induced condition: with unspecified complication Qualified Code(s): F10.929 - Alcohol use, unspecified with intoxication, unspecified (5) H/O heart artery stent Assessment/Plan: f/u records; pt's says he sees a ict support engineer in [facility], and had several cardiac tests done about 6 months ago (she and disagreed about whether he had had a stress test at that time). Code(s): Z95.5 - PRESENCE OF CORONARY ANGIOPLASTY IMPLANT AND GRAFT (6) Hyperlipidemia Assessment/Plan: f/u lipid profile. Code(s): E78.5 - HYPERLIPIDEMIA, UNSPECIFIED (7) Elevated LFTs Code(s): R94.5 - ABNORMAL RESULTS OF LIVER FUNCTION STUDIES (8) Liver cirrhosis Assessment/Plan: noted on US 2016; elevatred LFTs; alcoholism; f/u with GI. Code(s): K74.60 - UNSPECIFIED CIRRHOSIS OF LIVER
[2018-06-05] MEDS ORDERED: MORPHINE SULFATE 2 MG/ML VIAL IVPUSH ONE (01:45)
[2018-06-05 08:29] LABS: BASO % 1.2 % (0-2.0); EOS % 2.1 % (0-4.5); HEMATOCRIT 37.7 % (35.4-49); HEMOGLOBIN 13.1 GM/dL (11.7-16.9); LYMPH % 37.8 % (8-40); MCHC 34.8 g/dl (32.0-35.9); MEAN CELL VOLUME 97.8 fl (80-96); MEAN PLT VOLUME 7.9 fl (7.5-11.1); MONO % 11.3 % (3.8-10.2); NEUT % 47.6 % (42.8-82.8); PLATELET COUNT 49 K/MM3 (134-434); RBC 3.85 M/mm3 (4.00-5.60); RDW 14.9 % (11.9-15.9); WHITE BLOOD COUNT 2.5 K/mm3 (4.0-10.0)
[2018-06-05 08:55] LABS: INR 1.31 (0.83-1.09); PROTHROMBIN TIME (PATIENT) 15.5 SEC (9.7-13.0)
[2018-06-05 09:17] LABS: ALBUMIN 2.7 g/dl (3.4-5.0); ALK PHOS 153 U/L (45-117); ANION GAP 11 MMOL/L (8-16); BILIRUBIN,TOTAL 3.2 mg/dL (0.2-1); BLOOD UREA NITROGEN 13 mg/dL (7-18); CALCIUM 8.1 mg/dL (8.5-10.1); CHLORIDE 100 mmol/L (98-107); CHOLESTEROL 350 mg/dL (50-200); CO2 23 mmol/L (21-32); CREATININE 0.8 mg/dL (0.55-1.3); GLUCOSE,RANDOM 245 mg/dL (74-106); HDL CHOLESTEROL 45 mg/dL (40-60); MAGNESIUM 1.7 mg/dL (1.8-2.4); POTASSIUM 3.8 mmol/L (3.5-5.1); SGOT/AST 74 U/L (15-37); SGPT/ALT 58 U/L (13-61); SODIUM 134 mmol/L (136-145); TOT PROT 6.8 g/dl (6.4-8.2); TRIGLYCERIDES 735 mg/dL (0-150)
[2018-06-05] MEDS: PANTOPRAZOLE SODIUM 40 MG VIAL IVPUSH SCH (09:18)
[2018-06-05] MEDS: CARVEDILOL 25 MG TABLET (FP) PO SCH ×2 (09:18→22:41)
[2018-06-05] MEDS ORDERED: CLOPIDOGREL BISULFATE 75 MG TABLET (FP) PO SCH (10:00)
[2018-06-05] MEDS ORDERED: ASPIRIN 81 MG CHEWABLE TABLETS PO SCH (10:00)
[2018-06-05] MEDS: INSULIN SLIDING SCALE (NOVOLOG) 1 VIAL SQ SCH ×2 (11:06→16:48)
[2018-06-05] MEDS ORDERED: INSULIN (NOVOLOG) ASPART 100 UNITS/ML 10ML VIAL ONE (11:06)
--- NOTE | 2018-06-05 12:39 | PN ---
Progress Note (short form) - Note Progress Note: Subjective: --No acute events overnight --Awoke patient to discuss chest pain; however, he is a very poor historian. States he has abdominal and left sided, nonexertional, nonpleuritic chest pain. Will need to obtain collateral information from day habilitation specialist and family members. --Denies any lh, dizziness, chest pain or palpitations. Requesting to leave. Objective: Vital Signs - 24 hr 06/04/18 06/04/18 06/04/18 13:11 14:35 18:00 Temperature 98.3 F Pulse Rate Pulse Rate [ 74 76 Radial] Respiratory 18 19 20 Rate Blood Pressure Blood Pressure 130/81 128/78 [Left Arm] O2 Sat by Pulse 95 95 Oximetry (%) 06/04/18 06/04/18 06/04/18 18:51 20:25 20:35 Temperature 98 F Pulse Rate 78 Pulse Rate [ 76 Radial] Respiratory 18 20 20 Rate Blood Pressure 140/80 Blood Pressure 139/92 [Left Arm] O2 Sat by Pulse 96 99 Oximetry (%) 06/05/18 06/05/18 06/05/18 01:45 05:56 10:00 Temperature 97.4 F L 98.4 F 97.9 F Pulse Rate 72 63 69 Pulse Rate [ Radial] Respiratory 20 20 20 Rate Blood Pressure 145/73 147/83 151/76 Blood Pressure [Left Arm] O2 Sat by Pulse 95 Oximetry (%) Gen: well appearing male sitting upright in NAD HEENT: NC/AT. Op Clear, MMM cardiac: S1/S2 no murmurs Pulm: clear breath sounds bilaterally. Ext: WWP. No edema. Laboratory Last Values WBC 2.5 K/mm3 (4.0-10.0) L 06/05/18 08:00 RBC 3.85 M/mm3 (4.00-5.60) L 06/05/18 08:00 Hgb 13.1 GM/dL (11.7-16.9) 06/05/18 08:00 Hct 37.7 % (35.4-49) 06/05/18 08:00 MCV 97.8 fl (80-96) H 06/05/18 08:00 MCH 34.0 pg (25.7-33.7) H 06/05/18 08:00 MCHC 34.8 g/dl (32.0-35.9) 06/05/18 08:00 RDW 14.9 % (11.9-15.9) 06/05/18 08:00 Plt Count 49 K/MM3 (134-434) L 06/05/18 08:00 MPV 7.9 fl (7.5-11.1) 06/05/18 08:00 Absolute Neuts (auto) 1.2 K/mm3 (1.5-8.0) L 06/05/18 08:00 Neutrophils % 47.6 % (42.8-82.8) 06/05/18 08:00 Lymphocytes % 37.8 % (8-40) 06/05/18 08:00 Monocytes % 11.3 % (3.8-10.2) H 06/05/18 08:00 Eosinophils % 2.1 % (0-4.5) D 06/05/18 08:00 Basophils % 1.2 % (0-2.0) 06/05/18 08:00 Nucleated RBC % 0 % (0-0) 06/05/18 08:00 PT with INR 15.50 SEC (9.7-13.0) H 06/05/18 08:00 INR 1.31 (0.83-1.09) H 06/05/18 08:00 PTT (Actin FS) 25.6 SECONDS (25.2-36.5) 06/04/18 09:40 Sodium 134 mmol/L (136-145) L 06/05/18 08:00 Potassium 3.8 mmol/L (3.5-5.1) 06/05/18 08:00 Chloride 100 mmol/L (98-107) 06/05/18 08:00 Carbon Dioxide 23 mmol/L (21-32) 06/05/18 08:00 Anion Gap 11 MMOL/L (8-16) 06/05/18 08:00 BUN 13 mg/dL (7-18) 06/05/18 08:00 Creatinine 0.8 mg/dL (0.55-1.3) 06/05/18 08:00 Creat Clearance w eGFR > 60 (>60) 06/05/18 08:00 POC Glucometer 292 UNITS (80-120) 06/05/18 10:37 Random Glucose 245 mg/dL (74-106) H 06/05/18 08:00 Hemoglobin A1c % 8.8 % (4.2-6.3) H 06/05/18 08:00 Calcium 8.1 mg/dL (8.5-10.1) L 06/05/18 08:00 Magnesium 1.7 mg/dL (1.8-2.4) L 06/05/18 08:00 Total Bilirubin 3.2 mg/dL (0.2-1) H 06/05/18 08:00 AST 74 U/L (15-37) H 06/05/18 08:00 ALT 58 U/L (13-61) 06/05/18 08:00 Alkaline Phosphatase 153 U/L (45-117) H 06/05/18 08:00 Ammonia 135.20 umol/L (11-32) H 06/04/18 09:50 Creatine Kinase 216 IU/L (26-308) 06/04/18 09:40 Creatine Kinase Index 0.4 % (0.0-5.0) 06/04/18 09:40 CK-MB (CK-2) < 1.0 ng/mL (0.5-3.6) 06/04/18 09:40 Troponin I < 0.02 ng/ml (0.00-0.05) 06/05/18 08:00 Total Protein 6.8 g/dl (6.4-8.2) 06/05/18 08:00 Albumin 2.7 g/dl (3.4-5.0) L 06/05/18 08:00 Triglycerides 735 mg/dL (0-150) H 06/05/18 08:00 Cholesterol 350 mg/dL (50-200) H 06/05/18 08:00 Total LDL Cholesterol 98 mg/dL (5-100) 06/05/18 08:00 HDL Cholesterol 45 mg/dL (40-60) 06/05/18 08:00 Lipase 379 U/L (73-393) 06/04/18 09:40 TSH 2.07 uIU/ml (0.358-3.74) 06/05/18 08:00 Alcohol, Quantitative 55.1 mg/dL (0.0-5.0) H 06/04/18 20:00 Active Medications Acetaminophen (Tylenol -) 650 mg PO Q6H [facility] Carvedilol (Coreg -) 25 mg PO BID [facility] Last Admin: 06/05/18 09:18 Dose: 25 mg Insulin Aspart (Novolog Vial Sliding Scale -) 1 vial SQ TIDAC [facility]; Protocol Last Admin: 06/05/18 11:06 Dose: 8 units Lactulose (Cephulac (Oral Use)) 20 gm PO QID PRN PRN Reason: CONSTIPATION Ondansetron HCl (Zofran Injection) 4 mg IVPUSH Q4H-[facility] Pantoprazole Sodium (Protonix Iv) 40 mg IVPUSH DAILY [facility] Last Admin: 06/05/18 09:18 Dose: 40 mg A/P: 67 year old male with coronary disease status post multiple PCIs followed by outside day habilitation specialist presents with chest pain X3 days- ruled out for ACS, ECG without acute ischemic ST-T changes. Alcohol level elevated on admission. #CAD --please obtain records from outside day habilitation specialist for review --order echocardiogram to evaluate for structural heart disease --troponin negative X2 --LDL 98 --consider pharm nuclear stress test early next week --please obtain fasting lipid panel as TG 700s Treatment: --continue coreg 25mg BID, start lisinopril 5mg --start atorvastatin 40mg with goal to reduce LDL by 50% #?Alcohol withdrawal management per primary team Kevin Morse MD
[2018-06-05] MEDS: ACETAMINOPHEN 325 MG TABLET (FP) PO SCH ×2 (13:00→18:20)
--- NOTE | 2018-06-05 13:51 | PN ---
Progress Note, Physician Chief Complaint: 67 man (b. Nazia) w/ a history of CAD s/p stent x2 10y ago, HTN, DM who presents for evaluation of 3d of intermittent, non-radiating, 'cramping', left sided chest pain. Patient reports associated shortness of breath but is unable to clearly describe its association to is pain or the time course. The patient is oriented to person only and is unable to give a thorough history. Per the patient's , the patient has a history of EtOH and per chart review the patient has a history of cirrhosis. Per the , the patient's friend 4d ago and since that time the patient has been drinking more and complaining of generalized pain. She denies that he has ever had withdrawal symptoms. Denies ever smoking cigarettes. History of Present Illness: Pt chest pain is better - Current Medication List Current Medications: Active Medications Acetaminophen (Tylenol -) 650 mg PO Q6H [facility] Last Admin: 06/05/18 13:00 Dose: 650 mg Carvedilol (Coreg -) 25 mg PO BID [facility] Last Admin: 06/05/18 09:18 Dose: 25 mg Insulin Aspart (Novolog Vial Sliding Scale -) 1 vial SQ TIDAC [facility]; Protocol Last Admin: 06/05/18 11:06 Dose: 8 units Lactulose (Cephulac (Oral Use)) 20 gm PO QID PRN PRN Reason: CONSTIPATION Ondansetron HCl (Zofran Injection) 4 mg IVPUSH Q6H PRN PRN Reason: NAUSEA AND/OR VOMITING Pantoprazole Sodium (Protonix Iv) 40 mg IVPUSH DAILY [facility] Last Admin: 06/05/18 09:18 Dose: 40 mg - Objective Vital Signs: Vital Signs Temperature 97.9 F 06/05/18 10:00 Pulse Rate 69 06/05/18 10:00 Respiratory Rate 20 06/05/18 10:00 Blood Pressure 151/76 06/05/18 10:00 O2 Sat by Pulse Oximetry (%) 95 06/05/18 10:00 Constitutional: Yes: Well Nourished, No Distress Eyes: Yes: Conjunctiva Clear HENT: Yes: Atraumatic, Normocephalic Neck: Yes: Supple, Trachea Midline Cardiovascular: Yes: Regular Rate and Rhythm, S1, S2 Respiratory: Yes: Regular, CTA Bilaterally Gastrointestinal: Yes: Normal Bowel Sounds, Soft Musculoskeletal: Yes: Back Pain Edema: No Neurological: Yes: Alert, Oriented, Cran Nerves II-XII Intact Labs: CBC, BMP 06/05/18 08:00 06/05/18 08:00 INR, PTT INR 1.31 (0.83-1.09) H 06/05/18 08:00 Problem List - Problems (1) H/O heart artery stent Code(s): Z95.5 - PRESENCE OF CORONARY ANGIOPLASTY IMPLANT AND GRAFT (2) Hyperlipidemia Code(s): E78.5 - HYPERLIPIDEMIA, UNSPECIFIED (3) Liver cirrhosis Code(s): K74.60 - UNSPECIFIED CIRRHOSIS OF LIVER (4) Alcohol intoxication Code(s): F10.129 - ALCOHOL ABUSE WITH INTOXICATION, UNSPECIFIED Qualifiers: Complication of substance-induced condition: with unspecified complication Qualified Code(s): F10.929 - Alcohol use, unspecified with intoxication, unspecified Assessment/Plan (1) Chest pain Assessment/Plan: 1st TNI <0.02; f/u serially. ? stress MIBI done within the past 6 months by outside worm farmer. Hx CAD-->coronary stents 10 yrs ago. Code(s): R07.9 - CHEST PAIN, UNSPECIFIED Qualifiers: Chest pain type: unspecified Qualified Code(s): R07.9 - Chest pain, unspecified (2) Hyperammonemia Code(s): E72.20 - DISORDER OF UREA CYCLE METABOLISM, UNSPECIFIED (3) Hypokalemia Assessment/Plan: replete, and keep 4-4.5. Keep Mg 2-2.4, PO4 2.5-4.9 Code(s): E87.6 - HYPOKALEMIA (4) Alcohol intoxication Assessment/Plan: Detox protocol. Code(s): F10.129 - ALCOHOL ABUSE WITH INTOXICATION, UNSPECIFIED Qualifiers: Complication of substance-induced condition: with unspecified complication Qualified Code(s): F10.929 - Alcohol use, unspecified with intoxication, unspecified (5) H/O heart artery stent Assessment/Plan: f/u records; pt's says he sees a worm farmer in [facility], and had several cardiac tests done about 6 months ago (she and disagreed about whether he had had a stress test at that time). Code(s): Z95.5 - PRESENCE OF CORONARY ANGIOPLASTY IMPLANT AND GRAFT (6) Hyperlipidemia Assessment/Plan: f/u lipid profile. Code(s): E78.5 - HYPERLIPIDEMIA, UNSPECIFIED (7) Elevated LFTs Code(s): R94.5 - ABNORMAL RESULTS OF LIVER FUNCTION STUDIES (8) Liver cirrhosis Assessment/Plan: noted on US 2017; elevatred LFTs; alcoholism; f/u with GI. Code(s): K74.60 - UNSPECIFIED CIRRHOSIS OF LIVER
[2018-06-05] MEDS ORDERED: ONDANSETRON 4 MG/2 ML VIAL IVPUSH PRN (14:00)
--- NOTE | 2018-06-05 18:15 | CONS ---
DATE OF CONSULTATION: DATE OF DICTATION: 06/05/2018 GASTROINTESTINAL CONSULTATION The patient is a 67-year-old male with a past medical history of CAD status post PCI and stents 10 years ago, hypertension, diabetes, a history of alcohol abuse and cirrhosis, presumed to be secondary to alcohol abuse. He presented to the hospital with a few days of left-sided chest and abdominal pain. He also reported shortness of breath. He states that the abdominal pain is intermittent in nature. He denies any fevers, chills or changes in his bowel habit. He does admit to some nausea and vomiting yesterday. However, today, he states he is feeling better. Apparently, one of his close friends and since then, he has been drinking. His alcohol level here is elevated. He has never been hospitalization for alcohol withdrawal. His last upper endoscopy and colonoscopy were approximately six months ago and were reported to be negative. He denies any new medications or herbal supplements. He has never been hospitalized for a GI bleed or for encephalopathy. PAST MEDICAL AND SURGICAL HISTORY: These are as listed in the HPI. SOCIAL HISTORY: He drinks alcohol. He does not smoke or use drugs. FAMILY HISTORY: No history of GI or malignancy. ALLERGIES: No known drug allergies. HOME MEDICATIONS: These were reviewed and include aspirin, carvedilol, metformin, clopidogrel, glimepiride, Levemir, simvastatin, insulin and Jardiance. PHYSICAL EXAMINATION: Vital Signs: Temperature 98, pulse 71, blood pressure 137/78, respiratory rate 12, oxygen saturation 95% on room air. General: The patient is a pleasant man in no acute distress. HEENT: Anicteric sclerae. Cardiovascular: S1, S2. Regular rate and rhythm. Lungs: Bilaterally clear to auscultation. Abdomen: Soft and nontender. Extremities: No edema. LABS: White blood cell count was 2.5, hemoglobin 13, hematocrit 37, MCV 97, platelet count 49, INR 1.3, sodium 134, potassium 3.8, BUN 13, creatinine 0.8, glucose 245, hemoglobin A1c of 8.8, total bilirubin 3.2, AST 74, ALT 58, alkaline phosphatase 153. Ammonia level on admission was 135. Alcohol was [address] A head CT was performed and revealed no acute intracranial pathology. He also had a chest x-ray that revealed clear lungs, old rib trauma, a prominent knob, normal jovana and normal heart. IMPRESSION: Left-sided abdominal pain, also with thrombocytopenia, mild transaminitis and alcohol abuse. These findings may be consistent with cirrhosis secondary to underlying alcohol abuse in the past. Other etiology, however, should be excluded. Current symptoms of abdominal pain are not consistent with chronic liver disease. Other etiology should be excluded such as primary cardiac, gastric etiology secondary to peptic ulcer disease or functional etiology. RECOMMENDATION: 1. Diet as tolerated. We will continue him on lactulose 30 mL t.i.d.; titrate to 3 to 4 bowel movements daily. 2. We will start him on Protonix 40 mg p.o. daily. 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 4. We will order abdominal imaging, abdominal ultrasound to evaluate for cirrhosis. 5. Trend liver tests daily while hospitalized. He would benefit from diagnostic upper endoscopy to further evaluate his symptoms once he is cleared from a cardiopulmonary perspective. 6. We will order serologies for chronic and inherited liver disease. 7. Avoid NSAIDs and benzodiazepines. 8. He should be on a 2-gram sodium diet. DO JOSEFA LÓPEZ/[id number]
[2018-06-06] MEDS: ACETAMINOPHEN 325 MG TABLET (FP) PO SCH ×4 (00:10→17:37)
[2018-06-06] MEDS ORDERED: MORPHINE SULFATE 2 MG/ML VIAL IVPUSH ONE (02:59)
[2018-06-06] MEDS: INSULIN SLIDING SCALE (NOVOLOG) 1 VIAL SQ SCH ×3 (06:45→16:24)
--- NOTE | 2018-06-06 08:37 | PN ---
Progress Note, Physician Chief Complaint: no new complaints - feels better ; wants to go home - Current Medication List Current Medications: Active Medications Acetaminophen (Tylenol -) 650 mg PO Q6H [facility] Last Admin: 06/06/18 06:44 Dose: Not Given Carvedilol (Coreg -) 25 mg PO BID [facility] Last Admin: 06/05/18 22:41 Dose: 25 mg Insulin Aspart (Novolog Vial Sliding Scale -) 1 vial SQ TIDAC [facility]; Protocol Last Admin: 06/06/18 06:45 Dose: 7 units Lactulose (Cephulac (Oral Use)) 20 gm PO QID PRN PRN Reason: CONSTIPATION Ondansetron HCl (Zofran Injection) 4 mg IVPUSH Q6H PRN PRN Reason: NAUSEA AND/OR VOMITING Last Admin: 06/05/18 14:00 Dose: 4 mg Pantoprazole Sodium (Protonix Iv) 40 mg IVPUSH DAILY [facility] Last Admin: 06/05/18 09:18 Dose: 40 mg - Objective Vital Signs: Vital Signs Temperature 98.3 F 06/06/18 05:44 Pulse Rate 83 06/06/18 05:44 Respiratory Rate 20 06/06/18 05:44 Blood Pressure 140/82 06/06/18 05:44 O2 Sat by Pulse Oximetry (%) 95 06/05/18 21:00 Constitutional: Yes: Well Nourished, No Distress, Calm Eyes: Yes: WNL HENT: Yes: WNL Neck: Yes: WNL Cardiovascular: Yes: WNL, Regular Rate and Rhythm Respiratory: Yes: WNL, Regular, CTA Bilaterally Gastrointestinal: Yes: WNL, Normal Bowel Sounds, Soft Musculoskeletal: Yes: WNL Extremities: Yes: WNL Labs: CBC, BMP 06/05/18 08:00 06/05/18 08:00 INR, PTT INR 1.31 (0.83-1.09) H 06/05/18 08:00 Problem List - Problems (1) Abdominal pain Assessment/Plan: abdominal ultrasound reviewed - suggestive of cirrhosis c/w PPI 2 gram sodium diet avoid benzos/ nsaid f/u serologies for chronic liver disease avoid hepatotoxic medications he does not want inpt EGD -- I explained he would benefit from having the test to evaluate his abdominal pain as well as screen for varices considering he appears to have cirrhosis Code(s): R10.9 - UNSPECIFIED ABDOMINAL PAIN (2) Elevated LFTs Code(s): R94.5 - ABNORMAL RESULTS OF LIVER FUNCTION STUDIES
[2018-06-06] MEDS: PANTOPRAZOLE SODIUM 40 MG VIAL IVPUSH SCH (10:27)
[2018-06-06] MEDS: CARVEDILOL 25 MG TABLET (FP) PO SCH ×2 (10:33→21:32)
--- NOTE | 2018-06-06 11:08 | PN ---
Progress Note (short form) - Note Progress Note: Subjective: --No acute events overnight --Denies any lh, dizziness, chest pain or palpitations. Requesting to leave. Objective: Vital Signs 06/06/18 05:44 Temperature 98.3 F Pulse Rate 83 Respiratory 20 Rate Blood Pressure 140/82 Gen: well appearing male sitting upright in NAD HEENT: NC/AT. Op Clear, MMM cardiac: S1/S2 no murmurs Pulm: clear breath sounds bilaterally. Ext: WWP. No edema. Abnormal Lab Results 06/05/18 08:00 Ammonia 117.18 H Laboratory Results - last 24 hr 06/05/18 06/05/18 06/05/18 08:00 15:51 22:40 POC Glucometer 288 300 Ammonia 117.18 H 06/06/18 06:43 POC Glucometer 245 Ammonia Active Medications Acetaminophen (Tylenol -) 650 mg PO Q6H [facility] Last Admin: 06/06/18 06:44 Dose: Not Given Carvedilol (Coreg -) 25 mg PO BID [facility] Last Admin: 06/06/18 10:33 Dose: 25 mg Insulin Aspart (Novolog Vial Sliding Scale -) 1 vial SQ TIDAC [facility]; Protocol Last Admin: 06/06/18 06:45 Dose: 7 units Lactulose (Cephulac (Oral Use)) 20 gm PO QID PRN PRN Reason: CONSTIPATION Last Admin: 06/06/18 10:27 Dose: 20 gm Ondansetron HCl (Zofran Injection) 4 mg IVPUSH Q6H PRN PRN Reason: NAUSEA AND/OR VOMITING Last Admin: 06/05/18 14:00 Dose: 4 mg Pantoprazole Sodium (Protonix Iv) 40 mg IVPUSH DAILY [facility] Last Admin: 06/06/18 10:27 Dose: 40 mg A/P: 67 year old male with coronary disease status post multiple PCIs followed by outside game designer/creative director presents with chest pain X3 days- ruled out for ACS, ECG without acute ischemic ST-T changes. Alcohol level elevated on admission. #CAD --please obtain records from outside game designer/creative director for review --order echocardiogram to evaluate for structural heart disease --troponin negative X2 --LDL 98 --consider pharm nuclear stress test tomorrow (NPO after midnight) --please obtain fasting lipid panel as TG 700s Treatment: --continue coreg 25mg BID, start lisinopril 5mg --start atorvastatin 40mg with goal to reduce LDL by 50% #?Alcohol withdrawal management per primary team Kevin Morse MD
--- NOTE | 2018-06-06 14:08 | PN ---
Progress Note, Physician Chief Complaint: 67 man (b. Nazia) w/ a history of CAD s/p stent x2 10y ago, HTN, DM who presents for evaluation of 3d of intermittent, non-radiating, 'cramping', left sided chest pain. Pt is relatively better But lethargic History of Present Illness: Pt is very lethargic Pt is on lactulose For Cirrosis Hepatic Enchephalopathy - Current Medication List Current Medications: Active Medications Acetaminophen (Tylenol -) 650 mg PO Q6H [facility] Last Admin: 06/06/18 12:23 Dose: Not Given Carvedilol (Coreg -) 25 mg PO BID [facility] Last Admin: 06/06/18 10:33 Dose: 25 mg Insulin Aspart (Novolog Vial Sliding Scale -) 1 vial SQ TIDAC [facility]; Protocol Last Admin: 06/06/18 11:10 Dose: 9 units Lactulose (Cephulac (Oral Use)) 20 gm PO QID PRN PRN Reason: CONSTIPATION Last Admin: 06/06/18 10:27 Dose: 20 gm Ondansetron HCl (Zofran Injection) 4 mg IVPUSH Q6H PRN PRN Reason: NAUSEA AND/OR VOMITING Last Admin: 06/05/18 14:00 Dose: 4 mg Pantoprazole Sodium (Protonix Iv) 40 mg IVPUSH DAILY [facility] Last Admin: 06/06/18 10:27 Dose: 40 mg - Objective Vital Signs: Vital Signs Temperature 97.9 F 06/06/18 10:00 Pulse Rate 72 06/06/18 10:00 Respiratory Rate 18 06/06/18 10:00 Blood Pressure 135/81 06/06/18 10:00 O2 Sat by Pulse Oximetry (%) 95 06/06/18 09:00 Constitutional: Yes: No Distress Eyes: Yes: Conjunctiva Clear, EOM Intact HENT: Yes: Atraumatic, Normocephalic Neck: Yes: Supple, Trachea Midline Cardiovascular: Yes: Regular Rate and Rhythm, S1, S2 Respiratory: Yes: Regular, CTA Bilaterally Gastrointestinal: Yes: Normal Bowel Sounds, Soft Edema: No Labs: CBC, BMP 06/05/18 08:00 06/05/18 08:00 INR, PTT INR 1.31 (0.83-1.09) H 06/05/18 08:00 Problem List - Problems (1) H/O heart artery stent Code(s): Z95.5 - PRESENCE OF CORONARY ANGIOPLASTY IMPLANT AND GRAFT (2) Hyperlipidemia Code(s): E78.5 - HYPERLIPIDEMIA, UNSPECIFIED (3) Liver cirrhosis Code(s): K74.60 - UNSPECIFIED CIRRHOSIS OF LIVER (4) Alcohol intoxication Code(s): F10.129 - ALCOHOL ABUSE WITH INTOXICATION, UNSPECIFIED Qualifiers: Complication of substance-induced condition: with unspecified complication Qualified Code(s): F10.929 - Alcohol use, unspecified with intoxication, unspecified (5) Elevated LFTs Code(s): R94.5 - ABNORMAL RESULTS OF LIVER FUNCTION STUDIES (6) Hyperammonemia Code(s): E72.20 - DISORDER OF UREA CYCLE METABOLISM, UNSPECIFIED Assessment/Plan (1) Chest pain Assessment/Plan: 1st TNI <0.02; f/u serially. ? stress MIBI done within the past 6 months by outside club room attendant. Hx CAD-->coronary stents 10 yrs ago. Code(s): R07.9 - CHEST PAIN, UNSPECIFIED Qualifiers: Chest pain type: unspecified Qualified Code(s): R07.9 - Chest pain, unspecified (2) Hyperammonemia Code(s): E72.20 - DISORDER OF UREA CYCLE METABOLISM, UNSPECIFIED (3) Hypokalemia Assessment/Plan: replete, and keep 4-4.5. Keep Mg 2-2.4, PO4 2.5-4.9 Code(s): E87.6 - HYPOKALEMIA (4) Alcohol intoxication Assessment/Plan: Detox protocol. Code(s): F10.129 - ALCOHOL ABUSE WITH INTOXICATION, UNSPECIFIED Qualifiers: Complication of substance-induced condition: with unspecified complication Qualified Code(s): F10.929 - Alcohol use, unspecified with intoxication, unspecified (5) H/O heart artery stent Assessment/Plan: f/u records; pt's says he sees a club room attendant in [facility], and had several cardiac tests done about 6 months ago (she and disagreed about whether he had had a stress test at that time). Code(s): Z95.5 - PRESENCE OF CORONARY ANGIOPLASTY IMPLANT AND GRAFT (6) Hyperlipidemia Assessment/Plan: f/u lipid profile. Code(s): E78.5 - HYPERLIPIDEMIA, UNSPECIFIED (7) Elevated LFTs Code(s): R94.5 - ABNORMAL RESULTS OF LIVER FUNCTION STUDIES (8) Liver cirrhosis Assessment/Plan: noted on US 2017; elevatred LFTs; alcoholism; f/u with GI. Code(s): K74.60 - UNSPECIFIED CIRRHOSIS OF LIVER Spoke with cardiology on floor Pt will have stress test in AM
[2018-06-06] MEDS ORDERED: chlordiazePOXIDE HCL 25 MG CAPSULE PO PRN (14:29)
[2018-06-06] MEDS: FOLIC ACID 1 MG TABLET (FP) PO SCH (14:44)
[2018-06-06] MEDS: THIAMINE HCL 100 MG TABLET (FP) PO SCH (14:44)
[2018-06-06] MEDS: ASPIRIN COATED 81 MG TABLET.EC PO SCH (14:44)
[2018-06-06] MEDS: metFORMIN HCL 500 MG TABLET (FP) PO SCH (16:25)
[2018-06-06] MEDS ORDERED: INSULIN (NOVOLOG) ASPART 100 UNITS/ML 10ML VIAL ONE (16:28)
[2018-06-06] MEDS: LACTULOSE 20 GM/30 ML UDC (FOR ORAL USE ONLY) PO SCH (21:32)
[2018-06-07] MEDS: ACETAMINOPHEN 325 MG TABLET (FP) PO SCH ×4 (00:33→17:36)
[2018-06-07] MEDS: LACTULOSE 20 GM/30 ML UDC (FOR ORAL USE ONLY) PO SCH ×3 (06:19→22:05)
[2018-06-07] MEDS: INSULIN SLIDING SCALE (NOVOLOG) 1 VIAL SQ SCH ×3 (06:19→16:39)
[2018-06-07] MEDS: metFORMIN HCL 500 MG TABLET (FP) PO SCH ×2 (06:20→16:41)
[2018-06-07] MEDS: GLIMEPIRIDE 4 MG TABLET (FP) PO SCH (06:20)
[2018-06-07 07:38] LABS: BASO % 0.5 % (0-2.0); EOS % 2.2 % (0-4.5); HEMATOCRIT 37.9 % (35.4-49); LYMPH % 38.9 % (8-40); MCH 34.3 pg (25.7-33.7); MCHC 34.4 g/dl (32.0-35.9); MEAN CELL VOLUME 99.7 fl (80-96); MEAN PLT VOLUME 8.2 fl (7.5-11.1); MONO % 9.5 % (3.8-10.2); NEUT % 48.9 % (42.8-82.8); PLATELET COUNT 44 K/MM3 (134-434); RDW 14.9 % (11.9-15.9); WHITE BLOOD COUNT 2.9 K/mm3 (4.0-10.0)
[2018-06-07 08:20] LABS: ANION GAP 12 MMOL/L (8-16); BLOOD UREA NITROGEN 17 mg/dL (7-18); CALCIUM 8.4 mg/dL (8.5-10.1); CHLORIDE 101 mmol/L (98-107); CO2 22 mmol/L (21-32); CREATININE 0.8 mg/dL (0.55-1.3); GLUCOSE,RANDOM 252 mg/dL (74-106); POTASSIUM 3.2 mmol/L (3.5-5.1); SODIUM 135 mmol/L (136-145)
[2018-06-07] MEDS: CLOPIDOGREL BISULFATE 75 MG TABLET (FP) PO SCH (09:40)
[2018-06-07] MEDS: ASPIRIN COATED 81 MG TABLET.EC PO SCH (09:40)
[2018-06-07] MEDS: CARVEDILOL 25 MG TABLET (FP) PO SCH ×2 (09:40→22:05)
[2018-06-07] MEDS: FOLIC ACID 1 MG TABLET (FP) PO SCH (09:40)
[2018-06-07] MEDS: THIAMINE HCL 100 MG TABLET (FP) PO SCH (09:40)
[2018-06-07] MEDS: PANTOPRAZOLE SODIUM 40 MG VIAL IVPUSH SCH (09:40)
[2018-06-07] MEDS ORDERED: INSULIN (NOVOLOG) ASPART 100 UNITS/ML 10ML VIAL ONE (12:09)
--- NOTE | 2018-06-07 12:34 | ECHO ---
Name: YESENIA ABERNATHY Exam:Adult Echocardiogram Study Date: 06/07/2018 10:52 AM Age: 67 yrs Reason For Study: HTN Height: 66 in Weight: 143 lb BSA: 1.7 m2 MMode/2D Measurements & Calculations IVSd: 1.3 cm Ao root diam: 3.7 cm LVIDd: 3.6 cm LA dimension: 2.9 cm LVIDs: 2.4 cm LVPWd: 1.1 cm EDV(Teich): 55.3 ml LAV (MOD-bp): 22.1 ml ESV(Teich): 20.8 ml Doppler Measurements & Calculations MV E max scott: 78.1 cm/sec TR max scott: 194.6 cm/sec MV A max scott: 84.4 cm/sec TR max P.2 mmHg MV E/A: 0.93 MV dec time: 0.20 sec PI end-d scott: 92.3 cm/sec Med Peak E' Scott: 5.4 cm/sec Med E/e': 14.4 Lat Peak E' Scott: 5.5 cm/sec Lat E/e': 14.1 Procedure A complete two-dimensional transthoracic echocardiogram was performed (2D, M-mode, Doppler and color flow Doppler). Left Ventricle The left ventricle is normal in size. There is mild concentric left ventricular hypertrophy. Left agata tricular systolic function is normal. Ejection Fraction = 60-65%. No regional wall motion abnormalities noted. Right Ventricle The right ventricle is normal size. The right ventricular systolic function is normal. Atria The left atrial size is normal. Right atrial size is normal. Mitral Valve The mitral valve is normal in structure and function. There is no mitral regurgitation noted. Tricuspid Valve The tricuspid valve is normal in structure and function. No tricuspid regurgitation. Right ventricula r systolic pressure is normal. Aortic Valve There is mild aortic sclerosis.;. No aortic regurgitation is present. Pulmonic Valve The pulmonic valve is not well visualized. Great Vessels The aortic root is normal size. Pericardium/Pleura There is no pericardial effusion. Interpretation Summary The left ventricle is normal in size. There is mild concentric left ventricular hypertrophy. Left ventricular systolic function is normal. No regional wall motion abnormalities noted. Ejection Fraction = 60-65%. The right ventricular systolic function is normal. The left atrial size is normal. Right atrial size is normal. There is mild aortic sclerosis.; No significant valvular regurgitations are seen There is no pericardial effusion. When compared to study dated 05/19/11, no significant changes are seen [place] Rice MD 06/07/2018 12:34 PM
--- NOTE | 2018-06-07 12:37 | PN ---
Progress Note (short form) - Note Progress Note: GI follow up note Patient seen and examined Abdominal pain resolved Reports he just returned from cardiac echo Vital Signs - 24 hr 06/07/18 06/07/18 05:40 09:38 Temperature 98.0 F 97.9 F Pulse Rate 73 70 Respiratory 20 20 Rate Blood Pressure 142/85 129/93 O2 Sat by Pulse Oximetry (%) NAD Anicteric soft NT ND Labs reviewed and unremarkable Of note, on chart review, patient had EGD 04/2017 with small esophageal varices and large gastric fundic varices 67M with compensated cirrhosis. Etiology - ? ETOH (although patient denies excess) vs NAFLD vs viral. - titrate carvedilol to goal HR 60 - patient should have imaging q6 mo for HCC screening - repeat EGD late 2018 for variceal surveillance - patient is at high risk of bleeding given large varices; would discuss with cardiology utility of DAPT - if not already performed, patient should have hepatitis serologies to rule out viral hepatitis as etiology of cirrhosis. Otherwise, suspect NAFLD. - discussed this with patient in detail - patient should have GI follow up on discharge Jessenia Kang MD
--- NOTE | 2018-06-07 13:05 | PN ---
Progress Note, Physician History of Present Illness: The patient is a 67 man (b. Nazia) w/ a history of CAD s/p stent x2 10y ago, HTN , DM who presents for evaluation of 3d of intermittent, non-radiating, 'cramping ', left sided chest pain. Patient reports associated shortness of breath but is unable to clearly describe its association to is pain or the time course. The patient is oriented to person only and is unable to give a thorough history. Per the patient's , the patient has a history of EtOH and per chart review the patient has a history of cirrhosis. Per the , the patient's friend 4d ago and since that time the patient has been drinking more and complaining of generalized pain. She denies that he has ever had withdrawal symptoms. Denies ever smoking cigarettes. - Current Medication List Current Medications: Active Medications Acetaminophen (Tylenol -) 650 mg PO Q6H [facility] Last Admin: 06/07/18 12:15 Dose: Not Given Aspirin (Ecotrin -) 81 mg PO DAILY [facility] Last Admin: 06/07/18 09:40 Dose: 81 mg Carvedilol (Coreg -) 25 mg PO BID [facility] Last Admin: 06/07/18 09:40 Dose: 25 mg Chlordiazepoxide HCl (Librium -) 25 mg PO Q6H PRN PRN Reason: WITHDRAWAL(CONT SUBST) Clopidogrel Bisulfate (Plavix -) 75 mg PO DAILY [facility] Last Admin: 06/07/18 09:40 Dose: 75 mg Folic Acid (Folic Acid -) 1 mg PO DAILY [facility] Last Admin: 06/07/18 09:40 Dose: 1 mg Glimepiride (Amaryl -) 4 mg PO DAILY@0700 [facility] Last Admin: 06/07/18 06:20 Dose: 4 mg Insulin Aspart (Novolog Vial Sliding Scale -) 1 vial SQ TIDAC [facility]; Protocol Last Admin: 06/07/18 12:15 Dose: 7 units Lactulose (Cephulac (Oral Use)) 20 gm PO TID [facility] Stop: 06/12/18 05:00 Last Admin: 06/07/18 06:19 Dose: Not Given Metformin HCl (Glucophage -) 1,000 mg PO BID@0700,1630 [facility] Last Admin: 06/07/18 06:20 Dose: 1,000 mg Ondansetron HCl (Zofran Injection) 4 mg IVPUSH Q6H PRN PRN Reason: NAUSEA AND/OR VOMITING Last Admin: 06/05/18 14:00 Dose: 4 mg Pantoprazole Sodium (Protonix Iv) 40 mg IVPUSH DAILY [facility] Last Admin: 06/07/18 09:40 Dose: 40 mg Thiamine HCl (Vitamin B1 -) 100 mg PO DAILY [facility] Last Admin: 06/07/18 09:40 Dose: 100 mg - Objective Vital Signs: Vital Signs Temperature 97.9 F 06/07/18 09:38 Pulse Rate 70 06/07/18 09:38 Respiratory Rate 20 06/07/18 09:38 Blood Pressure 129/93 06/07/18 09:38 O2 Sat by Pulse Oximetry (%) 95 06/06/18 21:00 Eyes: Yes: WNL, Conjunctiva Clear, EOM Intact HENT: Yes: WNL, Atraumatic, Normocephalic Neck: Yes: WNL, Supple, Trachea Midline Cardiovascular: Yes: WNL, Regular Rate and Rhythm Respiratory: Yes: WNL, Regular, CTA Bilaterally Gastrointestinal: Yes: WNL, Normal Bowel Sounds Genitourinary: Yes: WNL Musculoskeletal: Yes: WNL Extremities: Yes: WNL Edema: No Integumentary: Yes: WNL Neurological: Yes: WNL, Alert, Oriented ...Motor Strength: WNL Psychiatric: Yes: WNL Labs: CBC, BMP 06/07/18 06:30 06/07/18 06:30 INR, PTT INR 1.31 (0.83-1.09) H 06/05/18 08:00 Assessment/Plan - Problems (1) Chest pain Assessment/Plan: 1st TNI <0.02; f/u serially. ? stress MIBI done within the past 6 months by outside rn vascular. Hx CAD-->coronary stents 10 yrs ago. Code(s): R07.9 - CHEST PAIN, UNSPECIFIED Qualifiers: Chest pain type: unspecified Qualified Code(s): R07.9 - Chest pain, unspecified (2) Hyperammonemia Code(s): E72.20 - DISORDER OF UREA CYCLE METABOLISM, UNSPECIFIED (3) Hypokalemia Assessment/Plan: replete, and keep 4-4.5. Keep Mg 2-2.4, PO4 2.5-4.9 Code(s): E87.6 - HYPOKALEMIA (4) Alcohol intoxication Assessment/Plan: Detox protocol. Code(s): F10.129 - ALCOHOL ABUSE WITH INTOXICATION, UNSPECIFIED Qualifiers: Complication of substance-induced condition: with unspecified complication Qualified Code(s): F10.929 - Alcohol use, unspecified with intoxication, unspecified (5) H/O heart artery stent Assessment/Plan: f/u records; pt's says he sees a rn vascular in [facility], and had several cardiac tests done about 6 months ago (she and disagreed about whether he had had a stress test at that time). Code(s): Z95.5 - PRESENCE OF CORONARY ANGIOPLASTY IMPLANT AND GRAFT (6) Hyperlipidemia Assessment/Plan: f/u lipid profile. Code(s): E78.5 - HYPERLIPIDEMIA, UNSPECIFIED (7) Elevated LFTs Code(s): R94.5 - ABNORMAL RESULTS OF LIVER FUNCTION STUDIES (8) Liver cirrhosis Assessment/Plan: noted on US 2017; elevatred LFTs; alcoholism; f/u with GI. Code(s): K74.60 - UNSPECIFIED CIRRHOSIS OF LIVER
--- NOTE | 2018-06-07 19:16 | PN ---
Progress Note, Physician Chief Complaint: 67 man (b. Nazia) w/ a history of CAD s/p stent x2 10y ago, HTN, DM who presents for evaluation of 3d of intermittent, non-radiating, 'cramping', left sided chest pain. Pt still having abd pain seen by GI also History of Present Illness: Pt is better Seen By GI - Current Medication List Current Medications: Active Medications Acetaminophen (Tylenol -) 650 mg PO Q6H [facility] Last Admin: 06/07/18 17:36 Dose: Not Given Aspirin (Ecotrin -) 81 mg PO DAILY [facility] Last Admin: 06/07/18 09:40 Dose: 81 mg Carvedilol (Coreg -) 25 mg PO BID [facility] Last Admin: 06/07/18 09:40 Dose: 25 mg Chlordiazepoxide HCl (Librium -) 25 mg PO Q6H PRN PRN Reason: WITHDRAWAL(CONT SUBST) Clopidogrel Bisulfate (Plavix -) 75 mg PO DAILY [facility] Last Admin: 06/07/18 09:40 Dose: 75 mg Folic Acid (Folic Acid -) 1 mg PO DAILY [facility] Last Admin: 06/07/18 09:40 Dose: 1 mg Glimepiride (Amaryl -) 4 mg PO DAILY@0700 [facility] Last Admin: 06/07/18 06:20 Dose: 4 mg Insulin Aspart (Novolog Vial Sliding Scale -) 1 vial SQ TIDAC [facility]; Protocol Last Admin: 06/07/18 16:39 Dose: 8 units Lactulose (Cephulac (Oral Use)) 20 gm PO TID [facility] Stop: 06/12/18 05:00 Last Admin: 06/07/18 13:56 Dose: 20 gm Metformin HCl (Glucophage -) 1,000 mg PO BID@0700,1630 [facility] Last Admin: 06/07/18 16:41 Dose: 1,000 mg Ondansetron HCl (Zofran Injection) 4 mg IVPUSH Q6H PRN PRN Reason: NAUSEA AND/OR VOMITING Last Admin: 06/05/18 14:00 Dose: 4 mg Pantoprazole Sodium (Protonix Iv) 40 mg IVPUSH DAILY [facility] Last Admin: 06/07/18 09:40 Dose: 40 mg Thiamine HCl (Vitamin B1 -) 100 mg PO DAILY [facility] Last Admin: 06/07/18 09:40 Dose: 100 mg - Objective Vital Signs: Vital Signs Temperature 99 F 06/07/18 18:52 Pulse Rate 73 06/07/18 18:52 Respiratory Rate 20 06/07/18 18:52 Blood Pressure 129/70 06/07/18 18:52 O2 Sat by Pulse Oximetry (%) 95 06/07/18 09:00 Constitutional: Yes: No Distress Eyes: Yes: Conjunctiva Clear, EOM Intact HENT: Yes: Atraumatic, Normocephalic Neck: Yes: Supple, Trachea Midline Cardiovascular: Yes: Regular Rate and Rhythm, S1, S2 Respiratory: Yes: Regular, CTA Bilaterally Gastrointestinal: Yes: Normal Bowel Sounds, Soft Musculoskeletal: Yes: Back Pain Edema: No Neurological: Yes: Alert, Oriented, Cran Nerves II-XII Intact Labs: CBC, BMP 06/07/18 06:30 06/07/18 06:30 INR, PTT INR 1.31 (0.83-1.09) H 06/05/18 08:00 Problem List - Problems (1) H/O heart artery stent Code(s): Z95.5 - PRESENCE OF CORONARY ANGIOPLASTY IMPLANT AND GRAFT (2) Hyperlipidemia Code(s): E78.5 - HYPERLIPIDEMIA, UNSPECIFIED (3) Liver cirrhosis Code(s): K74.60 - UNSPECIFIED CIRRHOSIS OF LIVER (4) Alcohol intoxication Code(s): F10.129 - ALCOHOL ABUSE WITH INTOXICATION, UNSPECIFIED Qualifiers: Complication of substance-induced condition: with unspecified complication Qualified Code(s): F10.929 - Alcohol use, unspecified with intoxication, unspecified (5) Elevated LFTs Code(s): R94.5 - ABNORMAL RESULTS OF LIVER FUNCTION STUDIES (6) Hyperammonemia Code(s): E72.20 - DISORDER OF UREA CYCLE METABOLISM, UNSPECIFIED Assessment/Plan (1) Chest pain Assessment/Plan: 1st TNI <0.02; f/u serially. ? stress MIBI done within the past 6 [address] outside road train driver. Hx CAD-->coronary stents 10 yrs ago. Code(s): R07.9 - CHEST PAIN, UNSPECIFIED Qualifiers: Chest pain type: unspecified Qualified Code(s): R07.9 - Chest pain, unspecified (2) Hyperammonemia Code(s): E72.20 - DISORDER OF UREA CYCLE METABOLISM, UNSPECIFIED (3) Hypokalemia Assessment/Plan: replete, and keep 4-4.5. Keep Mg 2-2.4, PO4 2.5-4.9 Code(s): E87.6 - HYPOKALEMIA (4) Alcohol intoxication Assessment/Plan: Detox protocol. Code(s): F10.129 - ALCOHOL ABUSE WITH INTOXICATION, UNSPECIFIED Qualifiers: Complication of substance-induced condition: with unspecified complication Qualified Code(s): F10.929 - Alcohol use, unspecified with intoxication, unspecified (5) H/O heart artery stent Assessment/Plan: f/u records; pt's says he sees a road train driver in [facility], and had several cardiac tests done about 6 months ago (she and disagreed about whether he had had a stress test at that time). Code(s): Z95.5 - PRESENCE OF CORONARY ANGIOPLASTY IMPLANT AND GRAFT (6) Hyperlipidemia Assessment/Plan: f/u lipid profile. Code(s): E78.5 - HYPERLIPIDEMIA, UNSPECIFIED (7) Elevated LFTs Code(s): R94.5 - ABNORMAL RESULTS OF LIVER FUNCTION STUDIES (8) Liver cirrhosis Assessment/Plan: noted on US 2017; elevatred LFTs; alcoholism; f/u with GI. Code(s): K74.60 - UNSPECIFIED CIRRHOSIS OF LIVER Spoke with cardiology on floor Pt stress test not done Pt should have stress test before discharge we will discuss with cardiology
[2018-06-07] MEDS: POTASSIUM CHLORIDE TABS 20 MEQ TABLET.ER (FP) PO SCH (22:05)
[2018-06-08] MEDS: ACETAMINOPHEN 325 MG TABLET (FP) PO SCH ×3 (00:30→15:09)
[2018-06-08] MEDS ORDERED: PT OWN MED DRAWER 7, Y5N ONE (05:42)
[2018-06-08] MEDS: metFORMIN HCL 500 MG TABLET (FP) PO SCH ×2 (06:12→17:50)
[2018-06-08] MEDS: LACTULOSE 20 GM/30 ML UDC (FOR ORAL USE ONLY) PO SCH ×2 (06:12→15:09)
[2018-06-08] MEDS: GLIMEPIRIDE 4 MG TABLET (FP) PO SCH (06:13)
[2018-06-08] MEDS: INSULIN SLIDING SCALE (NOVOLOG) 1 VIAL SQ SCH ×4 (06:43→17:48)
[2018-06-08] MEDS ORDERED: INSULIN (LEVEMIR) 100 UNITS/ML UNITS SQ SCH (07:00)
[2018-06-08 07:01] LABS: ANION GAP 9 MMOL/L (8-16); BLOOD UREA NITROGEN 16 mg/dL (7-18); CALCIUM 8.5 mg/dL (8.5-10.1); CHLORIDE 104 mmol/L (98-107); CO2 23 mmol/L (21-32); CREATININE 0.8 mg/dL (0.55-1.3); GLUCOSE,RANDOM 235 mg/dL (74-106); POTASSIUM 3.5 mmol/L (3.5-5.1); SODIUM 137 mmol/L (136-145)
[2018-06-08 07:11] LABS: BASO % 0.7 % (0-2.0); EOS % 2.7 % (0-4.5); HEMATOCRIT 38.2 % (35.4-49); HEMOGLOBIN 13.1 GM/dL (11.7-16.9); LYMPH % 41.1 % (8-40); MCH 34.5 pg (25.7-33.7); MCHC 34.2 g/dl (32.0-35.9); MEAN CELL VOLUME 100.9 fl (80-96); MEAN PLT VOLUME 8.3 fl (7.5-11.1); MONO % 12.6 % (3.8-10.2); NEUT % 42.9 % (42.8-82.8); PLATELET COUNT 52 K/MM3 (134-434); RBC 3.78 M/mm3 (4.00-5.60); RDW 15.4 % (11.9-15.9); WHITE BLOOD COUNT 2.9 K/mm3 (4.0-10.0)
--- NOTE | 2018-06-08 08:50 | PN ---
Progress Note (short form) - Note Progress Note: Pt seen and examined at bedside. Now he denies any alcohol abuse leading up to this hospitalization, although he admits to occasional wine. I explained to him that he has severe liver disease and should not have any alcohol at all. CBC WBC 2.9 K/mm3 (4.0-10.0) L 06/08/18 06:10 RBC 3.78 M/mm3 (4.00-5.60) L 06/08/18 06:10 Hgb 13.1 GM/dL (11.7-16.9) 06/08/18 06:10 Hct 38.2 % (35.4-49) 06/08/18 06:10 MCV 100.9 fl (80-96) H 06/08/18 06:10 MCH 34.5 pg (25.7-33.7) H 06/08/18 06:10 MCHC 34.2 g/dl (32.0-35.9) 06/08/18 06:10 RDW 15.4 % (11.9-15.9) 06/08/18 06:10 Plt Count 52 K/MM3 (134-434) L 06/08/18 06:10 MPV 8.3 fl (7.5-11.1) 06/08/18 06:10 Absolute Neuts (auto) 1.2 K/mm3 (1.5-8.0) L 06/08/18 06:10 Neutrophils % 42.9 % (42.8-82.8) 06/08/18 06:10 Lymphocytes % 41.1 % (8-40) H 06/08/18 06:10 Monocytes % 12.6 % (3.8-10.2) H 06/08/18 06:10 Eosinophils % 2.7 % (0-4.5) 06/08/18 06:10 Basophils % 0.7 % (0-2.0) 06/08/18 06:10 Nucleated RBC % 0 % (0-0) 06/08/18 06:10 Hepatic Panel Total Bilirubin 3.2 mg/dL (0.2-1) H 06/05/18 08:00 AST 74 U/L (15-37) H 06/05/18 08:00 ALT 58 U/L (13-61) 06/05/18 08:00 Alkaline Phosphatase 153 U/L (45-117) H 06/05/18 08:00 Albumin 2.7 g/dl (3.4-5.0) L 06/05/18 08:00 I also told him that his basic liver chemistries (AST, ALT, alk phos) were very abnormal when he came, and they are still abnormal but they are improving. Therefore I told him that I do not believe he was not drinking excessively. I performed an EGD one year ago that showed small esophageal varices. Currently he has no tremor, confusion, or signs of encephalopathy. I also do not think there is anything to be gained from an EGD now. Mr Tolliver is in denial that he has an alcohol abuse problem. He has barely compensated cirrhosis and if he keeps abusing alcohol he will likely deteriorate further in the near future. The concern now is that the two main indicators of actual liver function: bilirubin and INR -- were both rising as of 06/05/18. This is worrisome and I would not discharge him until there is documentation that they are improved. Will ask for repeat liver profile and INR. If they are improved then I have no objection to discharge from a GI perspective.
[2018-06-08 09:33] LABS: ALBUMIN 2.6 g/dl (3.4-5.0); ALK PHOS 189 U/L (45-117); BILIRUBIN,DIRECT 0.6 mg/dL (0.0-0.2); BILIRUBIN,TOTAL 2.4 mg/dL (0.2-1); SGOT/AST 43 U/L (15-37); SGPT/ALT 46 U/L (13-61); TOT PROT 6.6 g/dl (6.4-8.2)
[2018-06-08 10:14] LABS: INR 1.39 (0.83-1.09); PROTHROMBIN TIME (PATIENT) 16.5 SEC (9.7-13.0)
[2018-06-08] MEDS ORDERED: REGADENOSON 0.4 MG/5 ML PRE-FILLED SYRINGE IVPUSH ONE (12:49)
--- NOTE | 2018-06-08 14:00 | PN ---
Progress Note, Physician History of Present Illness: The patient is a 67 man (b. [place]) w/ a history of CAD s/p stent x2 10y ago, HTN , DM who presents for evaluation of 3d of intermittent, non-radiating, 'cramping ', left sided chest pain. Patient reports associated shortness of breath but is unable to clearly describe its association to is pain or the time course. The patient is oriented to person only and is unable to give a thorough history. Per the patient's , the patient has a history of EtOH and per chart review the patient has a history of cirrhosis. Per the , the patient's friend 4d ago and since that time the patient has been drinking more and complaining of generalized pain. She denies that he has ever had withdrawal symptoms. Denies ever smoking cigarettes. - Current Medication List Current Medications: Active Medications Acetaminophen (Tylenol -) 650 mg PO Q6H [facility] Last Admin: 06/08/18 00:30 Dose: Not Given Aspirin (Ecotrin -) 81 mg PO DAILY [facility] Last Admin: 06/07/18 09:40 Dose: 81 mg Carvedilol (Coreg -) 25 mg PO BID [facility] Last Admin: 06/07/18 22:05 Dose: 25 mg Chlordiazepoxide HCl (Librium -) 25 mg PO Q6H PRN PRN Reason: WITHDRAWAL(CONT SUBST) Clopidogrel Bisulfate (Plavix -) 75 mg PO DAILY [facility] Last Admin: 06/07/18 09:40 Dose: 75 mg Folic Acid (Folic Acid -) 1 mg PO DAILY [facility] Last Admin: 06/07/18 09:40 Dose: 1 mg Glimepiride (Amaryl -) 4 mg PO DAILY@0700 [facility] Last Admin: 06/08/18 06:13 Dose: 4 mg Insulin Aspart (Novolog Vial Sliding Scale -) 1 vial SQ TIDAC [facility]; Protocol Last Admin: 06/08/18 06:43 Dose: 7 units Insulin Detemir (Levemir Vial) 15 units SQ AM [facility] Last Admin: 06/08/18 06:43 Dose: 15 units Lactulose (Cephulac (Oral Use)) 20 gm PO TID [facility] Stop: 06/12/18 05:00 Last Admin: 06/08/18 06:12 Dose: 20 gm Metformin HCl (Glucophage -) 1,000 mg PO BID@0700,1630 [facility] Last Admin: 06/08/18 06:12 Dose: 1,000 mg Ondansetron HCl (Zofran Injection) 4 mg IVPUSH Q6H PRN PRN Reason: NAUSEA AND/OR VOMITING Last Admin: 06/05/18 14:00 Dose: 4 mg Pantoprazole Sodium (Protonix Iv) 40 mg IVPUSH DAILY [facility] Last Admin: 06/07/18 09:40 Dose: 40 mg Potassium Chloride (K-Dur -) 40 meq PO DAILY [facility] Last Admin: 06/07/18 22:05 Dose: 40 meq Thiamine HCl (Vitamin B1 -) 100 mg PO DAILY [facility] Last Admin: 06/07/18 09:40 Dose: 100 mg - Objective Vital Signs: Vital Signs Temperature 98.3 F 06/08/18 09:00 Pulse Rate 69 06/08/18 09:00 Respiratory Rate 18 06/08/18 09:00 Blood Pressure 128/74 06/08/18 09:00 O2 Sat by Pulse Oximetry (%) 98 06/08/18 09:00 Labs: CBC, BMP 06/08/18 06:10 06/08/18 06:10 INR, PTT INR 1.39 (0.83-1.09) H 06/08/18 09:20 Problem List - Problems (1) Chest pain Assessment/Plan: 1st TNI <0.02; f/u serially. Hx CAD-->coronary stents 10 yrs ago. For stress MIBI today. Code(s): R07.9 - CHEST PAIN, UNSPECIFIED Qualifiers: Chest pain type: unspecified Qualified Code(s): R07.9 - Chest pain, unspecified (2) Hyperammonemia Code(s): E72.20 - DISORDER OF UREA CYCLE METABOLISM, UNSPECIFIED (3) Hypokalemia Assessment/Plan: replete, and keep 4-4.5. Keep Mg 2-2.4, PO4 2.5-4.9 Code(s): E87.6 - HYPOKALEMIA (4) Alcohol intoxication Assessment/Plan: Detox protocol. Code(s): F10.129 - ALCOHOL ABUSE WITH INTOXICATION, UNSPECIFIED Qualifiers: Complication of substance-induced condition: with unspecified complication Qualified Code(s): F10.929 - Alcohol use, unspecified with intoxication, unspecified (5) H/O heart artery stent Code(s): Z95.5 - PRESENCE OF CORONARY ANGIOPLASTY IMPLANT AND GRAFT (6) Hyperlipidemia Code(s): E78.5 - HYPERLIPIDEMIA, UNSPECIFIED (7) Elevated LFTs Code(s): R94.5 - ABNORMAL RESULTS OF LIVER FUNCTION STUDIES (8) Liver cirrhosis Code(s): K74.60 - UNSPECIFIED CIRRHOSIS OF LIVER
[2018-06-08] MEDS: CLOPIDOGREL BISULFATE 75 MG TABLET (FP) PO SCH (15:08)
[2018-06-08] MEDS: THIAMINE HCL 100 MG TABLET (FP) PO SCH (15:08)
[2018-06-08] MEDS: POTASSIUM CHLORIDE TABS 20 MEQ TABLET.ER (FP) PO SCH (15:08)
[2018-06-08] MEDS: FOLIC ACID 1 MG TABLET (FP) PO SCH (15:08)
[2018-06-08] MEDS: PANTOPRAZOLE SODIUM 40 MG VIAL IVPUSH SCH (15:09)
[2018-06-08] MEDS: ASPIRIN COATED 81 MG TABLET.EC PO SCH (15:09)
[2018-06-08] MEDS: CARVEDILOL 25 MG TABLET (FP) PO SCH (15:13)
[2018-06-08 18:46] VITALS: BP 118/74; PULSE 71; TEMP 97.7
--- NOTE | 2018-06-08 20:45 | DS ---
Physical Examination Vital Signs: Vital Signs Temperature 97.7 F 06/08/18 18:00 Pulse Rate 71 06/08/18 18:00 Respiratory Rate 20 06/08/18 18:00 Blood Pressure 118/74 06/08/18 18:00 O2 Sat by Pulse Oximetry (%) 98 06/08/18 09:00 Constitutional: Yes: No Distress HENT: Yes: Atraumatic, Normocephalic Neck: Yes: Supple, Trachea Midline Cardiovascular: Yes: Regular Rate and Rhythm, S1, S2 Respiratory: Yes: Regular, CTA Bilaterally Gastrointestinal: Yes: Normal Bowel Sounds, Soft Labs: CBC, BMP 06/08/18 06:10 06/08/18 06:10 Discharge Summary Reason For Visit: ALCOHOL ABUSE/HYPERAMMONEMIA/HYPOKALEMIA Current Active Problems Abdominal pain (Acute) Chest pain (Acute) Elevated LFTs (Acute) H/O heart artery stent (Acute) Hyperammonemia (Acute) Hyperlipidemia (Acute) Hypokalemia (Acute) Liver cirrhosis (Acute) Hospital Course: Moderately Severe Inf wall Ischemia Pt refused cath Spoke with Seen by GI advised not to leave Pt is leaving AMA spoke with Condition: Guarded - Instructions Disposition: AGAINST MEDICAL ADVICE - Home Medications Comprehensive Discharge Medication List: Ambulatory Orders Aspirin [ASA -] 81 mg PO DAILY 06/06/12 Carvedilol [Coreg] 25 mg PO BID 06/06/12 metFORMIN HCL [Glucophage -] 1,000 mg PO BID 06/06/12 Clopidogrel Bisulfate [Plavix -] 75 mg PO DAILY 06/25/12 Glimepiride [Amaryl -] 4 mg PO DAILY@0700 05/25/17 Insulin (Levemir) [Levemir Flexpen -] 35 units SQ HS 05/25/17 Simvastatin 20 mg PO DAILY 05/25/17 Insulin (Levemir) [Levemir Flexpen -] 30 units SQ DAILY 05/26/17 Empagliflozin [Jardiance] 10 mg PO DAILY 06/04/18
== END 2018-06-08 21:22 | disposition left against medical advice (07) | DRG 433 ==
LOC: JER 08:39 → JERBED 13:51 → J6S 20:02
PROVIDERS: ADMIT Internal Medicine; ATTEND Internal Medicine
DX: K70.30 Alcoholic cirrhosis of liver without ascites (principal); E72.20 Disorder of urea cycle metabolism, unspecified; R07.89 Other chest pain; F10.129 Alcohol abuse with intoxication, unspecified; I86.4 Gastric varices; I25.10 Atherosclerotic heart disease of native coronary artery without angina pectoris; Z95.5 Presence of coronary angioplasty implant and graft; I10 Essential (primary) hypertension; E11.9 Type 2 diabetes mellitus without complications; Z79.84 Long term (current) use of oral hypoglycemic drugs; Z79.4 Long term (current) use of insulin; E87.6 Hypokalemia
CPT/HCPCS: 36415; 70450-TC; 71045-TC-FY; 74176-TC; 76700-TC; 78452-TC; 80048; 80053; 80061; 80076; 80307; 82140; 82550; 82553; 82962; 83036; 83516; 83690; 83721; 83735; 84443; 84484; 85025; 85027; 85610; 85730; 86038; 93005; 93010; 93017; 93306-TC; 99284-25; A9502; Q9967

== ENCOUNTER 2018-09-11 20:52 | Emergency (ER) | payer OTHER, BC ==
--- NOTE | 2018-09-11 21:20 | PDOC ---
History of Present Illness - General Chief Complaint: Altered Mental Status Stated Complaint: Alcohol intoxication History Source: Spouse Exam Limitations: No Limitations - History of Present Illness Initial Comments: 67 man h/o CAD s/p stent x2 10y ago, HTN, IDDM BIBEMS for altered mental status. Per at bedside, patient's getting progressively confused since morning and his fingerstick blood sugar was in the low 400s. Patient has been binge drinking sweet wine almost 1-2 liters a day in the last 3 days and his last drink was at 6pm. Past History - Past Medical History Allergies/Adverse Reactions: Allergies Allergy/AdvReac Type Severity Reaction Status Date / Time No Known Allergies Allergy Verified 09/11/18 21:25 Home Medications: Ambulatory Orders Aspirin [ASA -] 81 mg PO DAILY 06/06/12 Carvedilol [Coreg] 25 mg PO BID 06/06/12 metFORMIN HCL [Glucophage -] 1,000 mg PO BID 06/06/12 Clopidogrel Bisulfate [Plavix -] 75 mg PO DAILY 06/25/12 Glimepiride [Amaryl -] 4 mg PO DAILY@0700 05/25/17 Insulin (Levemir) [Levemir Flexpen -] 35 units SQ HS 05/25/17 Simvastatin 20 mg PO DAILY 05/25/17 Insulin (Levemir) [Levemir Flexpen -] 30 units SQ DAILY 05/26/17 Empagliflozin [Jardiance] 10 mg PO DAILY 06/04/18 Cardiac Disorders: Yes (cad, 2 stents) CVA: No COPD: No CHF: No Diabetes: Yes HTN: Yes - Surgical History Cardiac Surgery: Yes (card stent) - Immunization History Immunization Up to Date: Yes - Suicide/Smoking/Psychosocial Hx Smoking Status: No Smoking History: Never smoked Have you smoked in the past 12 months: No Number of Cigarettes Smoked Daily: 0 Hx Alcohol Use: Yes Drug/Substance Use Hx: No Substance Use Type: Alcohol Hx Substance Use Treatment: No
[2018-09-11 21:26] VITALS: BMI 22.9
[2018-09-11] MEDS ORDERED: FOLIC ACID INJECTION - 1 MG, THIAMINE HCL 100 MG, MULTIVIT INJECTION ADULT 10 ML in SOD... IVPB ONE (22:28)
--- NOTE | 2018-09-11 22:28 | PDOC ---
Attending Attestation - HPI HPI: 09/11/18 22:54 The patient is a 67-year-old female with a past medical history significant for IDDM, HTN and CAD s/p Stents presents to the emergency department via for increased confusion per . Mrs. Tolliver reports, the patients blood sugar was 431 in the morning, she gave him insulin. She states she rechecked the sugar in the afternoon it was noted to be 327 that worsened into the 400s in the evening, associated with increased confusion. She reports hes been on a wine binge the last 2-3 day, last drink was at 6:00 pm which was a full glass of wine. HIstory is limited due to intoxication - Medical Decision Making 09/11/18 22:54 Documentation prepared by Daria Whaley, acting as medical imaging technologist for Luciana Valdez MD. <Daria Whaley - Last Filed: 09/11/18 22:54> - Resident Resident Name: Suman Barone - ED Attending Attestation I have performed the following: I have examined & evaluated the patient, The case was reviewed & discussed with the resident, I agree w/resident's findings & plan, Exceptions are as noted - Physicial Exam PE: 09/11/18 22:59 GENERAL: The patient is in no acute distress, pt is intoxicated. HEAD: Normal with no signs of trauma. EYES: PERRLA, EOMI, ENT: Dry mucous membranes. NECK: Normal range of motion, supple LUNGS: Breath sounds equal, clear to auscultation bilaterally. HEART: Regular rate and rhythm, normal S1 and S2 without murmur, rub or gallop. ABDOMEN: Soft, nontender, normoactive bowel sounds. EXTREMITIES: Normal range of motion, no edema. NEUROLOGICAL: Cranial nerves II through XII grossly intact. No focal neurological deficits. Speech is slurred SKIN: Warm, Dry, normal turgor, no rashes or lesions noted. <Luciana Valdez - Last Filed: 09/11/18 23:01>
[2018-09-11 23:09] LABS: INR 1.18 (0.83-1.09); PROTHROMBIN TIME (PATIENT) 13.9 SEC (9.7-13.0)
[2018-09-11 23:12] LABS: ACTIVATED PTT 35.4 SECONDS (25.2-36.5)
[2018-09-11 23:39] LABS: ALK PHOS 178 U/L (45-117); ANION GAP 7 MMOL/L (8-16); BLOOD UREA NITROGEN 6 mg/dL (7-18); CALCIUM 8.3 mg/dL (8.5-10.1); CHLORIDE 112 mmol/L (98-107); CO2 29 mmol/L (21-32); CREATININE 0.8 mg/dL (0.55-1.3); GLUCOSE,RANDOM 246 mg/dL (74-106); MAGNESIUM 1.9 mg/dL (1.8-2.4); PHOSPHOROUS 3.1 mg/dL (2.5-4.9); POTASSIUM 3.6 mmol/L (3.5-5.1); SGOT/AST 57 U/L (15-37); SGPT/ALT 42 U/L (13-61); SODIUM 148 mmol/L (136-145); TOT PROT 7.4 g/dl (6.4-8.2)
--- NOTE | 2018-09-12 00:07 | PDOC ---
*Physical Exam - Vital Signs Last Vital Signs Temp Pulse Resp BP Pulse Ox 83 20 124/78 93 L 09/11/18 21:25 09/11/18 21:25 09/11/18 21:25 09/11/18 21:25 ED Treatment Course - LABORATORY CBC & Chemistry Diagram: 09/11/18 22:42 09/11/18 22:42 - ADDITIONAL ORDERS Additional order review: Laboratory Results 09/11/18 09/11/18 09/11/18 22:42 22:42 22:42 PT with INR INR PTT (Actin FS) Sodium Potassium Chloride Carbon Dioxide Anion Gap BUN Creatinine Creat Clearance w eGFR Random Glucose Calcium Phosphorus Magnesium Total Bilirubin AST ALT Alkaline Phosphatase Ammonia 42.00 H Creatine Kinase 156 Creatine Kinase Index 0.6 CK-MB (CK-2) < 1.0 Troponin I < 0.02 Total Protein Albumin Alcohol, Quantitative Acetone, Qual Negative 09/11/18 09/11/18 22:42 22:42 PT with INR 13.90 H INR 1.18 H PTT (Actin FS) 35.4 Sodium 148 H Potassium 3.6 Chloride 112 H Carbon Dioxide 29 Anion Gap 7 L BUN 6 L Creatinine 0.8 Creat Clearance w eGFR 96.72 Random Glucose 246 H Calcium 8.3 L Phosphorus 3.1 Magnesium 1.9 Total Bilirubin 1.0 AST 57 H ALT 42 Alkaline Phosphatase 178 H Ammonia Creatine Kinase Creatine Kinase Index CK-MB (CK-2) Troponin I Total Protein 7.4 Albumin 3.0 L Alcohol, Quantitative 300.68683 H Acetone, Qual Medical Decision Making - Medical Decision Making Patient signed out by Dr. Barone 67yo M with PMH of DM, HTN, CAD x/p stent presenting with AMS. Admits to binge- drinking alcohol. Labs at baseline. Pending imaging studies 09/12/18 00:06 CXR without acute pathology (my impression) CT Cspine FINDINGS: Vertebral bodies appear normal with no fracture Vertebral bodies are normally aligned Airway is intact Soft Tissues are normal IMPRESSION: Mild degenerative changes with no cervical spine fracture CT Head FINDINGS: Brain parenchyma is normal in attenuation with no mass or hematoma. There is no midline shift. Foreman and white matter differentiation is normal. Ventricles are normal. Sulci and extra-axial CSF spaces are normal. Intracranial vascular structures are normal in attenuation. There is no calvarial fracture. Paranasal sinuses are normally aerated. IMPRESSION: Normal. Head Patient discharged *DC/Admit/Observation/Transfer Diagnosis at time of Disposition: Alcohol intoxication - Discharge Dispostion Disposition: HOME Condition at time of disposition: Stable - Referrals - Patient Instructions Printed Discharge Instructions: DI for Alcohol Abuse Additional Instructions: Immediate medical attention is required if you have: a seizure or develop tremors or hallucinations and do not have access to alcohol, vomiting, chest pain, shortness of breath, abdominal pain, thoughts of self-harm, or an other new or concerning symptoms. If you think you are having an emergency, call for emergency medical services or present to the emergency department right away. - Post Discharge Activity
[2018-09-12 00:24] LABS: BASO % 0.5 % (0-2.0); EOS % 1.2 % (0-4.5); HEMATOCRIT 41.5 % (35.4-49); HEMOGLOBIN 15.2 GM/dL (11.7-16.9); LYMPH % 64.4 % (8-40); MCH 37.4 pg (25.7-33.7); MCHC 36.7 g/dl (32.0-35.9); MEAN CELL VOLUME 101.8 fl (80-96); MONO % 12.8 % (3.8-10.2); NEUT % 21.1 % (42.8-82.8); PLATELET COUNT 63 K/MM3 (134-434); RBC 4.07 M/mm3 (4.00-5.60); RDW 13.9 % (11.9-15.9); WHITE BLOOD COUNT 4.2 K/mm3 (4.0-10.0)
[2018-09-12] MEDS ORDERED: LACTULOSE 20 GM/30 ML UDC (FOR ORAL USE ONLY) PO ONE (01:50)
--- NOTE | 2018-09-12 02:26 | PDOC ---
*Physical Exam - Vital Signs Last Vital Signs Temp Pulse Resp BP Pulse Ox 83 20 124/78 93 L 09/11/18 21:25 09/11/18 21:25 09/11/18 21:25 09/11/18 21:25 ED Treatment Course - LABORATORY CBC & Chemistry Diagram: 09/11/18 22:42 09/11/18 22:42 - ADDITIONAL ORDERS Additional order review: Laboratory Results 09/11/18 09/11/18 09/11/18 22:42 22:42 22:42 PT with INR INR PTT (Actin FS) Sodium Potassium Chloride Carbon Dioxide Anion Gap BUN Creatinine Creat Clearance w eGFR Random Glucose Calcium Phosphorus Magnesium Total Bilirubin AST ALT Alkaline Phosphatase Ammonia 42.00 H Creatine Kinase 156 Creatine Kinase Index 0.6 CK-MB (CK-2) < 1.0 Troponin I < 0.02 Total Protein Albumin Alcohol, Quantitative Acetone, Qual Negative 09/11/18 09/11/18 22:42 22:42 PT with INR 13.90 H INR 1.18 H PTT (Actin FS) 35.4 Sodium 148 H Potassium 3.6 Chloride 112 H Carbon Dioxide 29 Anion Gap 7 L BUN 6 L Creatinine 0.8 Creat Clearance w eGFR 96.72 Random Glucose 246 H Calcium 8.3 L Phosphorus 3.1 Magnesium 1.9 Total Bilirubin 1.0 AST 57 H ALT 42 Alkaline Phosphatase 178 H Ammonia Creatine Kinase Creatine Kinase Index CK-MB (CK-2) Troponin I Total Protein 7.4 Albumin 3.0 L Alcohol, Quantitative 300.84681 H Acetone, Qual 09/11/18 22:42 RBC 4.07 MCV 101.8 H MCHC 36.7 H RDW 13.9 MPV 8.0 Neutrophils % 21.1 L D Lymphocytes % 64.4 H D Monocytes % 12.8 H Eosinophils % 1.2 Basophils % 0.5 Medical Decision Making - Medical Decision Making 09/12/18 02:31 Patient Name: YESENIA ABERNATHY THIS IS A PRELIMINARY REPORT FROM [facility] DATE OF SERVICE: 2018-09-12 02:09:30 IMAGES: [id number] EXAM: CT HEAD CT WITHOUT CONTRAST HISTORY: Altered mental status COMPARISON: None. FINDINGS: Brain parenchyma is normal in attenuation with no mass or hematoma. There is no midline shift. Foreman and white matter differentiation is normal. Ventricles are normal. Sulci and extra-axial CSF spaces are normal. Intracranial vascular structures are normal in attenuation. There is no calvarial fracture. Paranasal sinuses are normally aerated. IMPRESSION: Normal. Head 09/12/18 02:55 Patient Name: YESENIA ABERNATHY THIS IS A PRELIMINARY REPORT FROM [facility] DATE OF SERVICE: 2018-09-12 02:06:01 IMAGES: [id number] EXAM: CT CERVICAL SPINE CT W/O CONTR HISTORY: Altered mental status following trauma COMPARISON: None. FINDINGS: Vertebral bodies appear normal with no fracture Vertebral bodies are normally aligned Airway is intact Soft Tissues are normal Pulmonary apices are normal IMPRESSION: Mild degenerative changes with no cervical spine fracture 09/12/18 06:42 stable for d/c home with his . *DC/Admit/Observation/Transfer Diagnosis at time of Disposition: Alcohol intoxication - Discharge Dispostion Disposition: HOME Condition at time of disposition: Stable - Referrals - Patient Instructions Printed Discharge Instructions: DI for Alcohol Abuse Additional Instructions: Immediate medical attention is required if you have: a seizure or develop tremors or hallucinations and do not have access to alcohol, vomiting, chest pain, shortness of breath, abdominal pain, thoughts of self-harm, or an other new or concerning symptoms. If you think you are having an emergency, call for emergency medical services or present to the emergency department right away. - Post Discharge Activity
[2018-09-12] MEDS ORDERED: LACTULOSE 20 GM/30 ML UDC (FOR ORAL USE ONLY) ONE (02:42)
[2018-09-12 03:19] VITALS: BP 126/83; PULSE 86; TEMP 98.5
[2018-09-12 05:43] LABS: ANISOCYTOSIS 0; HELMET CELLS 0; HOWELL-JOLLY BODIES 0; MACROCYTOSIS 0; OVALOCYTE 0; PLATELET ESTIMATE DECREASED; ROULEAU 0; SICKELED CELLS 0; TARGET CELLS 0; TEAR DROP CELLS 0; TOXIC GRANULATION 0
== END 2018-09-12 03:19 | disposition home or self-care (01) ==
LOC: JER 20:52
PROC: 3E033GC Introduction of Other Therapeutic Substance into Peripheral Vein, Percutaneous Approach (ICD-10-PCS; principal; 2018-09-11)
DX: F10.120 Alcohol abuse with intoxication, uncomplicated (principal); Y90.8 Blood alcohol level of 240 mg/100 ml or more; E11.65 Type 2 diabetes mellitus with hyperglycemia; Z79.4 Long term (current) use of insulin; I25.10 Atherosclerotic heart disease of native coronary artery without angina pectoris; I10 Essential (primary) hypertension; Z95.5 Presence of coronary angioplasty implant and graft
CPT/HCPCS: 36415; 70450-TC; 71045-TC-FY; 72125-TC; 80053; 80307; 82009; 82140; 82550; 82553; 83735; 84100; 84484; 85025; 85610; 85730; 96365; 96366; 99283-25; J7030

== ENCOUNTER 2019-01-03 13:36 | Emergency (ER) | payer OTHER, BC ==
--- NOTE | 2019-01-03 13:49 | PDOC ---
Rapid Medical Evaluation Time Seen by Provider: 01/03/19 13:46 Medical Evaluation: Allergies Allergy/AdvReac Type Severity Reaction Status Date / Time No Known Allergies Allergy Verified 09/11/18 21:25 01/03/19 13:46 This patient had a brief in-person evaluation by me. cc: nausea, diarrhea and decreased appetite x 2 days brought in by PE:NAD even and unlabored breathing soft abdomen, + bowel sounds Orders: fingerstick, labs, iv access This patient will proceed to Ed for further evaluation Discharge Disposition - Diagnosis Diarrhea - Referrals - Patient Instructions - Post Discharge Activity
[2019-01-03 13:50] VITALS: BP 127/76; PULSE 87; TEMP 97.4; BMI 23.6
== END 2019-01-03 15:00 | disposition left against medical advice (07) ==
LOC: JER 13:36
DX: Z53.21 Procedure and treatment not carried out due to patient leaving prior to being seen by health care provider (principal)
CPT/HCPCS: 99281-25

== ENCOUNTER 2019-01-03 15:46 | Emergency (ER) | payer OTHER, BC ==
[2019-01-03 15:51] VITALS: TEMP 97.1; BMI 20.7
[2019-01-03] MEDS ORDERED: SODIUM CHLORIDE 1,000 ML IV STA (17:23)
--- NOTE | 2019-01-03 17:45 | PDOC ---
History of Present Illness - General Chief Complaint: Pain Stated Complaint: VOMITING/ NAUSEOUS Time Seen by Provider: 01/03/19 16:33 History Source: Patient, Spouse Exam Limitations: No Limitations - History of Present Illness Initial Comments: 01/03/19 17:27 Sources: and patient (AMS per ) CC: AMS, pain in LUQ, N/V for 2 days HPI: 68yo man with pmh alcohol use disorder, DM, HTN, high cholesterol, 2 cardiac stents presenting with two days of AMS, LUQ pain, and nausea with two episodes of emesis. Emesis was small volume of food from before, no blood, no coffee grounds. He also has had several episodes of loose stools. Endorses deep non-radiating LUQ pain. Denies fever, chills, CP, SOB, cough, PICHARDO, dizziness, neck pain. reports that he is altered from his baseline mental status and that this is similar to his prior presentations with hepatic encephalopathy - most recently 2 months ago in [place]. Reports prior endoscopy and colonoscopy. Pt denies alcohol consumption since last Thursday (8 days ago) but smells like alcohol at bedside. Endorses eating at a picnic and concern that he has food poisoning - no other picnic members have had any symptoms. Past History - Past Medical History Allergies/Adverse Reactions: Allergies Allergy/AdvReac Type Severity Reaction Status Date / Time No Known Allergies Allergy Verified 01/04/19 09:09 Home Medications: Ambulatory Orders Aspirin [ASA -] 81 mg PO DAILY 06/06/12 Carvedilol [Coreg] 25 mg PO BID 06/06/12 metFORMIN HCL [Glucophage -] 1,000 mg PO BID 06/06/12 Clopidogrel Bisulfate [Plavix -] 75 mg PO DAILY 06/25/12 Insulin (Levemir) [Levemir Flexpen -] 35 units SQ HS 05/25/17 Simvastatin 20 mg PO DAILY 05/25/17 Insulin (Levemir) [Levemir Flexpen -] 30 units SQ DAILY 05/26/17 Empagliflozin [Jardiance] 10 mg PO DAILY 06/04/18 Cardiac Disorders: Yes (cad, 2 stents) CVA: No COPD: No CHF: No Diabetes: Yes HTN: Yes - Surgical History Cardiac Surgery: Yes (card stent) - Immunization History Immunization Up to Date: Yes - Suicide/Smoking/Psychosocial Hx Smoking Status: No Smoking History: Never smoked Have you smoked in the past 12 months: No Number of Cigarettes Smoked Daily: 0 Information on smoking cessation initiated: No Hx Alcohol Use: No Drug/Substance Use Hx: No Substance Use Type: Alcohol Hx Substance Use Treatment: No Review of Systems - Review of Systems Constitutional: Yes: Loss of Appetite (some loss of appetite over the weekend, hungry in the ED). No: Chills, Fever, Night Sweats, Weakness HEENTM: No: Symptoms Reported, Blurred Vision, Recent change in vision Respiratory: No: Shortness of Breath Cardiac (ROS): No: Chest Pain, Lightheadedness, Palpitations, Chest Tightness ABD/GI: Yes: Diarrhea, Nausea, Vomiting (two episodes, no blood). No: Abdominal Distended Musculoskeletal: No: Symptoms Reported Integumentary: No: Symptoms Reported, Bruising, Change in Color, Pruritus, Rash All Other Systems: Reviewed and Negative *Physical Exam - Vital Signs Last Vital Signs Temp Pulse Resp BP Pulse Ox 97.1 F L 81 18 143/79 100 01/03/19 15:49 01/03/19 15:49 01/03/19 15:49 01/03/19 15:49 01/03/19 15:49 - Physical Exam Comments: 01/03/19 17:47 Vitals: reviewed Gen: WDWN man, smells of alcohol, intermittently cooperative, appears stated age , moving slowly with a large grin HEENT: EOMI, sclera anicteric, NCAT, nontender, normal morphologies, vision grossly intact CV: RRR, no heaves or thrills, no adventitious heart sounds Pulm: clear to auscultation bilaterally, normal work of breathing Abd: soft, nontender, nondistended, no ascites, normal color, no skin changes overlying painful region Neuro: moving all extremities equally, alert, oriented x2 - to place and president, not to year, no asterixis, no tongue fasiculations Pulses: 2+ radial and DP 01/03/19 17:54 01/03/19 18:09 ED Treatment Course - LABORATORY CBC & Chemistry Diagram: 01/03/19 17:16 01/03/19 17:16 - RADIOLOGY Radiology Studies Ordered: Category Date Time Status HEAD CT WITHOUT CONTRAST [CT] Stat CT Scan 01/03/19 17:20 Ordered CHEST PA & LAT [RAD] Stat Radiology 01/03/19 17:16 Ordered Medical Decision Making - Medical Decision Making 01/03/19 17:52 68yo man with pmh alcohol use disorder, DM on insulin, HTN, high cholesterol, and 2 cardiac stents (15 years ago) presenting with two days of AMS, LUQ pain, and nausea with two episodes of emesis. History concerning for prior episodes of hepatic encephalopathy, diabetes, stomach pain with n/v, and 's assessment of AMS. Physical notable for the smell of alcohol, non-tender abdomen overlaying region of pain, absence of sequelae of liver disease, afebrile, and affect / MSE. Presentation is concerning for hepatic encephalopathy vs DKA vs gastritis vs toxic alcohol ingestion. R/o head bleed in alcoholic pt on plavix. Also considering less likely, UTI or pancreatitis, unlikely given description of pain and lack of urinary symptoms. - CBC, CMP, VBG, Glucose, Acetone, Alcohol level, NH4, PT/PTT, Lipase - UA, UCx - CXR; PA & Lateral - NCHCT - NS 1L 01/03/19 18:49 - pH 7.41 - ETOH 244.6 - Na 141 - WBC 2.9 Ammonia level pending. Imaging pending. 01/03/19 19:02 Ammonia elevated to 70.50 as chronic Lipase 610 Pt not on any treatment to reduce his ammonia levels. Given zofran and lactulose. Continue to monitor for intox vs ammonia. 01/03/19 20:54 Pt asleep at bedside, allowing him to metabolize before reassessment. explained that they went to [facility] yesterday and were discharged from the ED. She reports that she gave him Henessey this afternoon in small amounts and doesn't let him drink on his own. She is concerned about getting him up the stairs to their home if he is unsteady on his feet. Plan to reassess ambulation after metabolism. 01/03/19 21:[address] Tolliver. *DC/Admit/Observation/Transfer Diagnosis at time of Disposition: Nausea & vomiting, Abdominal pain - Discharge Dispostion Disposition: AGAINST MEDICAL ADVICE Condition at time of disposition: Fair - Referrals Referrals: Hunter Groves MD [Primary Care Provider] - - Patient Instructions - Post Discharge Activity
[2019-01-03 17:59] LABS: VENOUS PC02 40.7 mmHg (41-51); VENOUS PH 7.41 (7.31-7.41); VENOUS PO2 61.4 mmHg (30-40)
[2019-01-03 18:03] LABS: BASO % 0.9 % (0-2.0); EOS % 2.4 % (0-4.5); HEMOGLOBIN 13.2 GM/dL (11.7-16.9); LYMPH % 46.6 % (8-40); MCH 35.3 pg (25.7-33.7); MCHC 35.8 g/dl (32.0-35.9); MEAN CELL VOLUME 98.7 fl (80-96); MEAN PLT VOLUME 7.8 fl (7.5-11.1); MONO % 9.9 % (3.8-10.2); NEUT % 40.2 % (42.8-82.8); PLATELET COUNT 53 K/MM3 (134-434); RBC 3.75 M/mm3 (4.00-5.60); RDW 14.9 % (11.9-15.9); WHITE BLOOD COUNT 2.9 K/mm3 (4.0-10.0)
[2019-01-03 18:15] LABS: INR 1.17 (0.83-1.09); PROTHROMBIN TIME (PATIENT) 13.8 SEC (9.7-13.0)
[2019-01-03 18:18] LABS: ACTIVATED PTT 37.4 SECONDS (25.2-36.5)
[2019-01-03] MEDS ORDERED: ONDANSETRON 4 MG/2 ML VIAL IVPUSH ONE (18:20)
[2019-01-03 18:38] LABS: ALK PHOS 408 U/L (45-117); ANION GAP 8 MMOL/L (8-16); BILIRUBIN,TOTAL 1.5 mg/dL (0.2-1); BLOOD UREA NITROGEN 8.4 mg/dL (7-18); CALCIUM 8.3 mg/dL (8.5-10.1); CHLORIDE 106 mmol/L (98-107); CO2 26 mmol/L (21-32); CREATININE 0.8 mg/dL (0.55-1.3); GLUCOSE,RANDOM 244 mg/dL (74-106); POTASSIUM 3.4 mmol/L (3.5-5.1); SGOT/AST 87 U/L (15-37); SGPT/ALT 54 U/L (13-61); SODIUM 141 mmol/L (136-145); TOT PROT 7.3 g/dl (6.4-8.2)
[2019-01-03] MEDS ORDERED: ONDANSETRON 4 MG/2 ML VIAL ONE (18:54)
[2019-01-03] MEDS ORDERED: LACTULOSE 20 GM/30 ML UDC (FOR ORAL USE ONLY) PO ONE (19:01)
[2019-01-03 20:25] LABS: LIPASE 610 U/L (73-393)
[2019-01-03] MEDS ORDERED: LACTULOSE 20 GM/30 ML UDC (FOR ORAL USE ONLY) ONE (23:23)
[2019-01-03 23:44] LABS: PH,URINE 6.5 (5.0-8.0); URINE APPEARANCE CLEAR; URINE BILIRUBIN NEGATIVE (NEGATIVE); URINE COLOR YELLOW; URINE GLUCOSE (UA) 2+ (NEGATIVE); URINE KETONE NEGATIVE (NEGATIVE); URINE LEUK ESTERASE NEGATIVE (NEGATIVE); URINE NITRITE NEGATIVE (NEGATIVE); URINE PROTEIN NEGATIVE (NEGATIVE); URINE UROBILINOGEN 0.2 mg/dL (0.2-1.0)
[2019-01-04 01:41] VITALS: BP 148/84; PULSE 89
[2019-01-04 03:11] LABS: ACETONE SERUM NEGATIVE (NEGATIVE)
--- NOTE | 2019-01-04 12:07 | EKG ---
Test Reason : Blood Pressure : / mmHG Vent. Rate : 068 BPM Atrial Rate : 068 BPM P-R Int : 216 ms QRS Dur : 132 ms QT Int : 442 ms P-R-T Axes : 042 -67 035 degrees QTc Int : 469 ms SINUS RHYTHM WITH 1ST DEGREE A-V BLOCK LEFT AXIS DEVIATION RIGHT BUNDLE BRANCH BLOCK ABNORMAL ECG WHEN COMPARED WITH ECG OF 04-JUN-2018 08:45, RIGHT BUNDLE BRANCH BLOCK IS NOW PRESENT Confirmed by To Sanchez ([id number]) on 01/04/2019 12:06:37 PM Referred By: Confirmed By:To Sanchez
--- NOTE | 2019-01-05 03:05 | PDOC ---
Documentation entered by Leticia Pedroza SCRIBE, acting as scribe for Naz Tolliver MD. Naz Tolliver MD: This documentation has been prepared by the Kasia galvez Sammi, SCRIBE, under my direction and personally reviewed by me in its entirety. I confirm that the documentation accurately reflects all work, treatment, procedures, and medical decision making performed by me. Attending Attestation - Resident Resident Name: AllenLuis Manuel - ED Attending Attestation I have performed the following: I have examined & evaluated the patient, The case was reviewed & discussed with the resident, I agree w/resident's findings & plan, Exceptions are as noted - HPI HPI: 01/03/19 17:37 The patient is a 68 year old male, with a significant PMH of chronic alcoholism (he staes his last drink was last week), DM, liver cirrhosis, who presents to the emergency department for evaluation of 2 days of nausea, vomiting, and weakness. 01/05/19 03:01 - Physicial Exam PE: 01/03/19 17:37 GENERAL: Well-appearing, well-nourished. No apparent distress. HEENT: Normocephalic, atraumatic. EOM intact. No bruits. Dry mucous memranes CARDIOVASCULAR: Slightly tachycardic. PULMONARY: Clear to auscultation bilaterally. ABDOMEN: (+) vague left upper quadrant discomfort to deep palpation Soft, non-distended, no guarding or rebound. EXTREMITIES: Normal ROM in all four extremities. No gross deformities. No pitting edema. NEUROLOGY: Conversant, appropriated, moving all extremities, ambulatory SKIN: Warm, dry. No rash - Medical Decision Making 01/03/19 17:31 slender 68 yo male brought in by concerned for 2 days of nausea and vomiting and generalized weakness. He endorses mild LUQ pain PMH NIDDM,etoh cirrhosis,HTN Pt is afebrile and denies cough,fever,chills,diarrhea Diff diag includes etoh gastritis,dka,gastroparesis ,pancreatitis ,cad plan comp,lipase,cbc,IVF ,zofran 01/03/19 18:24 Reviewing labs: chronic leukopenia,no anemia,sl bumped INR but improving since last year 01/04/19 01:38 CAT scan head was negative for any acute intracranial pathology CAT scan of the abdomen and pelvis with contrast did not show any pancreatitis, small bowel obstruction, diverticulitis, appendicitis or intra-abdominal process this pt has an elevated etoh level,is poorly compliant diabetic and has elevated ammonia levle and he refuses admission Case is discussed with Dr. Osborne who said the patient would have to be signing out AMA because his ammonia level is 70. He is noncompliant and he is is insulin dependent diabetic Patient signed out AMA. 01/05/19 03:02
== END 2019-01-04 01:42 | disposition left against medical advice (07) ==
LOC: JER 15:46
PROC: 3E0337Z Introduction of Electrolytic and Water Balance Substance into Peripheral Vein, Percutaneous Approach (ICD-10-PCS; principal; 2019-01-03)
PROC: 3E033GC Introduction of Other Therapeutic Substance into Peripheral Vein, Percutaneous Approach (ICD-10-PCS; 2019-01-03)
DX: R41.82 Altered mental status, unspecified (principal); R10.12 Left upper quadrant pain; R11.2 Nausea with vomiting, unspecified; F10.20 Alcohol dependence, uncomplicated; I25.10 Atherosclerotic heart disease of native coronary artery without angina pectoris; I10 Essential (primary) hypertension; Z95.5 Presence of coronary angioplasty implant and graft; E11.9 Type 2 diabetes mellitus without complications; Z79.4 Long term (current) use of insulin; K70.30 Alcoholic cirrhosis of liver without ascites; E78.00 Pure hypercholesterolemia, unspecified; E72.20 Disorder of urea cycle metabolism, unspecified
CPT/HCPCS: 36415; 70450-TC; 71045-TC-FY; 71046-TC-FY; 74177-TC; 80053; 80307; 81003; 82009; 82140; 82803; 83690; 85025; 85610; 85730; 87086; 93005; 93010; 96361; 96374; 99283-25; J7030

== ENCOUNTER 2019-01-04 09:06 | Inpatient (IN) | payer OTHER, BC ==
[2019-01-04] MEDS ORDERED: FAMOTIDINE 20 MG/50 ML IVPB 20 MG in PREMIX 50 IVPB ONE (10:31)
[2019-01-04] MEDS ORDERED: MAG HYDROX/AL HYDROX/SIMETH -MYLANTA- ORAL SUSPENSION PO ONE (10:31)
[2019-01-04] MEDS ORDERED: ONDANSETRON 4 MG/2 ML VIAL IVPB ONE (10:33)
[2019-01-04] MEDS ORDERED: SODIUM CHLORIDE 500 ML IV STA (10:34)
[2019-01-04] MEDS ORDERED: MAG HYDROX/AL HYDROX/SIMETH 30 ML UNIT-DOSE CUP ONE (10:39)
[2019-01-04] MEDS ORDERED: ONDANSETRON 4 MG/2 ML VIAL ONE (10:39)
[2019-01-04] MEDS ORDERED: FAMOTIDINE 20 MG/50 ML IVPB 20 MG/50 ML MG IVPB ONE (10:40)
[2019-01-04 10:45] LABS: BASO % 0.5 % (0-2.0); EOS % 1.2 % (0-4.5); HEMATOCRIT 36.9 % (35.4-49); HEMOGLOBIN 13.2 GM/dL (11.7-16.9); LYMPH % 27.5 % (8-40); MCHC 35.8 g/dl (32.0-35.9); MEAN CELL VOLUME 97.9 fl (80-96); MEAN PLT VOLUME 8.1 fl (7.5-11.1); MONO % 10.1 % (3.8-10.2); NEUT % 60.7 % (42.8-82.8); RBC 3.77 M/mm3 (4.00-5.60)
[2019-01-04 10:51] LABS: PLATELET COUNT 46 K/MM3 (134-434)
[2019-01-04 10:55] LABS: INR 1.32 (0.83-1.09); PROTHROMBIN TIME (PATIENT) 15.6 SEC (9.7-13.0)
--- NOTE | 2019-01-04 10:56 | PDOC ---
Documentation entered by Bill Pino SCRIBE, acting as scribe for Jose Becerra MD. Jose Becerra MD: This documentation has been prepared by the Alvarez galvez Elijah, SCRIBE, under my direction and personally reviewed by me in its entirety. I confirm that the documentation accurately reflects all work, treatment, procedures, and medical decision making performed by me. History of Present Illness - General Chief Complaint: Vomiting/Diarrhea Stated Complaint: VOMITING NAUSEA Time Seen by Provider: 01/04/19 09:39 History Source: Patient Exam Limitations: No Limitations - History of Present Illness Initial Comments: 01/04/19 10:40 Patient is a 68 year old male with a significant past medical history of alcohol use disorder, DM, HTN, high cholesterol, and 2 cardiac stents presenting with two days of AMS who presents to the ED with abdominal pain and nausea. Patient was seen in the ED x1 day prior for AMS and Abdominal Pain and left AMA. As per at patients bedside, the patient also has had NBNB vomiting (Although patient has not vomited since ED visit yesterday), diarrhea, and dizziness/shaking after vomiting. Patient also reports that his last drink was x8 days prior. Denies SOB, CP. Head/Back Pain Allergies: NKA PCP: Dr. Hameed GI: Dr. Kyle Past History - Past Medical History Allergies/Adverse Reactions: Allergies Allergy/AdvReac Type Severity Reaction Status Date / Time No Known Allergies Allergy Verified 01/04/19 09:09 Home Medications: Ambulatory Orders Aspirin [ASA -] 81 mg PO DAILY 06/06/12 Carvedilol [Coreg] 25 mg PO BID 06/06/12 metFORMIN HCL [Glucophage -] 1,000 mg PO BID 06/06/12 Clopidogrel Bisulfate [Plavix -] 75 mg PO DAILY 06/25/12 Insulin (Levemir) [Levemir Flexpen -] 35 units SQ HS 05/25/17 Simvastatin 20 mg PO DAILY 05/25/17 Insulin (Levemir) [Levemir Flexpen -] 30 units SQ DAILY 05/26/17 Empagliflozin [Jardiance] 10 mg PO DAILY 06/04/18 Cardiac Disorders: Yes (cad, 2 stents) CVA: No COPD: No CHF: No Diabetes: Yes HTN: Yes - Surgical History Cardiac Surgery: Yes (card stent) - Immunization History Immunization Up to Date: Yes - Suicide/Smoking/Psychosocial Hx Smoking Status: No Smoking History: Never smoked Have you smoked in the past 12 months: No Number of Cigarettes Smoked Daily: 0 Information on smoking cessation initiated: No Hx Alcohol Use: No Drug/Substance Use Hx: No Substance Use Type: Alcohol Hx Substance Use Treatment: No Review of Systems - Review of Systems Comments:: 01/04/19 10:45 Constitutional - +Dizziness. +Shaking after Vomit. Pt denies Fever, Chills, weakness, HEENT: denies vision changes, sore throat Respiratory: Denies cough, sob, hemoptysis Cardiac: denies chest pain, palpitations, light headedness, leg swelling Abd/GI: +LUQ Pain, +nausea, +NBNB vomiting, +Diarrhea Denies blood per rectum, melena, : denies dysuria, frequency, discharge Musculskelatal - denies back pain, joint swelling skin - denies bruising, erythema, rash neurological: denies headache, numbness, focal weakness, tingling, ataxia, weakness hematologic: denies anemia, easy bruising, easy bleeding *Physical Exam - Vital Signs Last Vital Signs Temp Pulse Resp BP Pulse Ox 98.2 F 76 20 168/69 96 01/04/19 09:10 01/04/19 09:10 01/04/19 09:10 01/04/19 09:10 01/04/19 09:10 - Physical Exam Comments: 01/04/19 10:45 GENERAL: The patient is awake, alert, and fully oriented, Nontoxic - in no acute distress. HEAD: Normocephalic, atraumatic. EYES: extraocular movements intact, sclera anicteric, conjunctiva clear. ENT: Normal voice, Moist mucous membranes. NECK: Normal range of motion, supple without lymphadenopathy, JVD, or masses. LUNGS: Breath sounds equal, clear to auscultation bilaterally. No wheezes, no crackles, no rales. HEART: Regular rate and rhythm, normal S1 and S2 without murmur, rub or gallop. ABDOMEN: Soft, nontender, normoactive bowel sounds. No guarding, no rebound. No masses. EXTREMITIES: Normal range of motion, no edema. No clubbing or cyanosis. No cords, erythema, or tenderness. NEUROLOGICAL: No facial asymmetry, Normal speech, normal gait. +asterixis PSYCH: Normal mood, normal affect. SKIN: Warm, Dry, normal turgor, no rashes or lesions noted. Heart Score/ECG Review - ECG Impressions Comment:: 01/04/19 19:53 ekg perfomed 19:39 rate of 68 left axis deviation nonspecific intraventricular block ED Treatment Course - LABORATORY CBC & Chemistry Diagram: 01/04/19 10:25 01/04/19 10:25 Medical Decision Making - Medical Decision Making 01/04/19 10:32 68y M hx of etoh abuse (last use probably thursday per ), dm, htn, hl, CAD sp stents returns to the ED, was seen here yesterday for evaluation for AMS and abd pain, had labs showing elevated ammonia, given lactulose, slightly elevated lipase, had CT that was negative and left AMA as he was feeling better, but when he went home started feeling nauseus again with persistent abd pain so came back to the ED - notes mental status has improved after being treated last night. will ck trend labs including ammonia, lipase will give pepcid/maalox ?getoh gastritis vs pancreatitis zofran for nausea A portion of this note was documented by scribe services under my direction. I have reviewed the details of the note, within reason, and agree with the documentation with the following case summary and management plan written by me 01/04/19 13:16 The patient's labs were reviewed the patient's bilirubin increased at 3 from yesterday, will obtain ultrasound of the patient's liver/gallbladder 01/04/19 15:20 US reviewed pt noted +asterixis and elvated ammonia - will give lactulose will admit for further management 01/04/19 16:[address] schumacher and dr. kyle will admit for further management of hepatic encephalopathy *DC/Admit/Observation/Transfer Diagnosis at time of Disposition: Hepatic encephalopathy, Hyperammonemia Liver cirrhosis Qualifiers: Hepatic cirrhosis type: alcoholic cirrhosis Ascites presence: unspecified Qualified Code(s): K70.30 - Alcoholic cirrhosis of liver without ascites - Discharge Dispostion Condition at time of disposition: Guarded Decision to Admit order: Yes - Referrals - Patient Instructions - Post Discharge Activity
[2019-01-04 11:16] LABS: ALK PHOS 292 U/L (45-117); ANION GAP 8 MMOL/L (8-16); BILIRUBIN,TOTAL 3.3 mg/dL (0.2-1); CALCIUM 8.6 mg/dL (8.5-10.1); CHLORIDE 104 mmol/L (98-107); CO2 26 mmol/L (21-32); CREATININE 0.7 mg/dL (0.55-1.3); GLUCOSE,RANDOM 197 mg/dL (74-106); LIPASE 263 U/L (73-393); POTASSIUM 3.5 mmol/L (3.5-5.1); SGOT/AST 86 U/L (15-37); SGPT/ALT 53 U/L (13-61); SODIUM 138 mmol/L (136-145)
[2019-01-04] MEDS ORDERED: LACTULOSE 20 GM/30 ML UDC (FOR ORAL USE ONLY) PO ONE ×2 (15:19→17:36)
[2019-01-04] MEDS ORDERED: LACTULOSE 20 GM/30 ML UDC (FOR ORAL USE ONLY) ONE (16:12)
--- NOTE | 2019-01-04 17:07 | PN ---
Teaching Attending Note Name of Resident: Melissa Novoa ATTENDING PHYSICIAN STATEMENT I saw and evaluated the patient. I reviewed the resident's note and discussed the case with the resident. I agree with the resident's findings and plan as documented with exceptions below. SUBJECTIVE: 68 yom with PMhx of ETOH abuse, alcoholic cirrhosis, hepatic encephalopthy, esophageal varices Grade I on prior EKG, CAD s/p last reported PCI 2004, last stress test 05/2018 with moderate reversible ischemia, IDDM, HTN, HLD brought by with subtle episodes of confusion, nausea, but no vomiting and shaking for last 2 days. Per , this is similar to prior episodes with elevated ammonia levels. Patient also reported minimal left wade-umbilical abdominal pain , intermittent but none currently. per , patient with long standing h/o ETOH abuse, reports has been 'good' for last 1 year, has a few glass of wine daily with "not too much alcohol". 10 days ago went to a alliance party and since then has been having Leandra daily, unable to quantify, per patient last drink yesterday morning. Given above symptoms, came to ED yesterday when had CT head/CT A/P but left AMA, today came back, with ongoing symptoms. Denies any fevers, chills, abdominal distension, dyspnea, chest pain, palpitations, dizziness or urinary symptoms. Per , was also admitted with similar symptoms in [place] in 08/2018. OBJECTIVE: Vital Signs Period Temp Pulse Resp BP Sys/Argueta Pulse Ox Last 24 Hr 98.1 F-98.2 F 76-78 18-20 132-168/69-74 96-98 Intake & Output 01/01/19 01/02/19 01/03/19 01/04/19 23:59 23:59 23:59 23:59 Weight 145 lb GENERAL: Awake, alert, oriented to person, place, thought was december 03, 2018 HEAD: Normal with no signs of trauma. EYES: Pupils equal, round and reactive to light, extraocular movements intact, sclera icteric EARS, NOSE, THROAT: Ears normal, nares patent, oropharynx clear without exudates. Dry mucous membranes. NECK: Soft, supple, no JVD LUNGS: Breath sounds equal, clear to auscultation bilaterally. No wheezes, and no crackles. No accessory muscle use. HEART: Regular rate and rhythm, normal S1 and S2 ABDOMEN: Soft, obese, NT throughout, no fluid wave appreciated, no voluntary or involuntary guarding or rigidity, pos bowel sounds MUSCULOSKELETAL: Normal range of motion at all joints. No bony deformities or tenderness. No CVA tenderness. UPPER EXTREMITIES: 2+ pulses, warm, well-perfused. No cyanosis. No clubbing. No peripheral edema. Pos asterexis LOWER EXTREMITIES: 2+ pulses, warm, well-perfused. No calf tenderness. No peripheral edema. NEUROLOGICAL: Cranial nerves II-XII intact. Normal speech. Normal gait. PSYCHIATRIC: Cooperative. Good eye contact. Appropriate mood and affect. SKIN: Warm, dry, decreased turgor, no rashes or lesions noted, normal capillary refill. Home Medications Medication Instructions Recorded Aspirin [ASA -] 81 mg PO DAILY 06/06/12 Carvedilol [Coreg] 25 mg PO BID 06/06/12 metFORMIN HCL [Glucophage -] 1,000 mg PO BID 06/06/12 Clopidogrel Bisulfate [Plavix -] 75 mg PO DAILY 06/25/12 Insulin (Levemir) [Levemir Flexpen 35 units SQ HS 05/25/17 -] Simvastatin 20 mg PO DAILY 05/25/17 Insulin (Levemir) [Levemir Flexpen 30 units SQ DAILY 05/26/17 -] Empagliflozin [Jardiance] 10 mg PO DAILY 06/04/18 Laboratory Results - last 24 hr 01/04/19 01/04/19 01/04/19 10:25 10:25 10:25 WBC 3.0 L RBC 3.77 L Hgb 13.2 Hct 36.9 MCV 97.9 H MCH 35.0 H MCHC 35.8 RDW 15.0 Plt Count 46 L MPV 8.1 Absolute Neuts (auto) 1.8 Neutrophils % 60.7 D Lymphocytes % 27.5 D Monocytes % 10.1 Eosinophils % 1.2 Basophils % 0.5 Nucleated RBC % 0 PT with INR INR Sodium 138 Potassium 3.5 Chloride 104 Carbon Dioxide 26 Anion Gap 8 BUN 7.0 Creatinine 0.7 Est GFR (CKD-EPI)AfAm 113.18 Est GFR (CKD-EPI)NonAf 97.65 Random Glucose 197 H Calcium 8.6 Total Bilirubin 3.3 H AST 86 H ALT 53 Alkaline Phosphatase 292 H Ammonia 61.70 H Creatine Kinase 346 H Creatine Kinase Index 0.2 CK-MB (CK-2) < 1.0 Troponin I < 0.02 Total Protein 7.0 Albumin 3.0 L Lipase 263 01/04/19 10:25 WBC RBC Hgb Hct MCV MCH MCHC RDW Plt Count MPV Absolute Neuts (auto) Neutrophils % Lymphocytes % Monocytes % Eosinophils % Basophils % Nucleated RBC % PT with INR 15.60 H INR 1.32 H Sodium Potassium Chloride Carbon Dioxide Anion Gap BUN Creatinine Est GFR (CKD-EPI)AfAm Est GFR (CKD-EPI)NonAf Random Glucose Calcium Total Bilirubin AST ALT Alkaline Phosphatase Ammonia Creatine Kinase Creatine Kinase Index CK-MB (CK-2) Troponin I Total Protein Albumin Lipase CT head/A/P results from 01/03 noted Abdomen:US 01/04 results noted ASSESSMENT AND PLAN: 68 yom with PMhx of ETOH abuse, alcoholic cirrhosis, hepatic encephalopthy, esophageal varices Grade I on prior EKG, CAD s/p last reported PCI 2004, last stress test 05/2018 with moderate reversible ischemia, IDDM, HTN, HLD admitted with acute decompensated hepatic cirrhosis from ongoing alcohol abuse and hepatic encephalopathy. -Acute decompensated hepatic cirrhosis from ongoing ETOH abuse -hepatic encephalopathy -Grade I esophageal cirrhosis -ETOH abuse/dependence -CAD s/p PCI x2 2004, abnormal stress test 05/2018 -IDDM -HTN -HLD Plan: GI Dr. Contreras consulted from ED, supportive care MELD 14, DF 25. Lactulose, gentle hydration CT A/P and US with no ascitis and abdominal exam benign, no clinical concerns for SBP. Daily LFTs, coags On ASA/Plavix, patient non compliant with plavix, takes 1-2 times a week and stops when notices BRBPR. Continue ASA, hold plavix today, resume in 24-48 hours as improves if no bleed concerns. PPI IV BID levemir 10 BID with ISS, diabetic diet, titrate up as tolerated Patient in denial about his ongoing ETOH abuse. Attempted to executive assistant to general counsel on alcohol abstinence and poor prognosis in the setting of ongoing use. Hold statin. Continue coreg. DVTPPX SCDs Dispo pending resolution of medical issues Plan discussed with patient and at bedside in detail, all questions answered Total admit time 65 min.
--- NOTE | 2019-01-04 17:55 | HP ---
Admitting History and Physical - Primary Care Physician PCP: Dr Damián Hameed - Admission Chief Complaint: Altered mental status History of Present Illness: Pt is a 68 yo M with PMHx of CAD s/p stents, HTN, DM, HLD, cirrhosis with varices, alcohol use disorder presenting from home with a hx of abdominal pain, nausea, AMS for past 4 days. Pt was said to have binged about one week ago at a green party after which he started drinking 1-2 bottles of Hennes[place] everyday. About 2- 3 days ago, Pt be started to have nausea and retching with dry heaves, no actual vomiting, slurring of speech with increased tremulousness. Per , this usually happens when his ammonia level is high. No fever, no diarrhea, no blood in stool, no sick contacts. Pt became lethargic and had to be brought to the ED yesterday. Per , in the ED yesterday, he got lactulose and fluids, felt better and back to his baseline mental status then signed himself AMA. When they got home, around 2am, he started the nausea again with dry heaves and they called back the ED and were called to come back in. Pt reports having similar symptoms in [place] between August and October 2018, which also improved with lactulose. Per , pt has intermittent periods of sobriety from drinking and then binges. No prior seizures, no prior hematemesis. Pt followed Dr Contreras in past, (appears non compliant) and was noted to have mild varices on EGD,with cirrhosis. No chest pain, SOB, no dysuria or hematuria. Since being in the ED and receiving medications, the nausea has improved. ED: WBC-3.0 (at baseline for him), platelets 46, Nicolas 3.3 (from 1.5 a day prior) , INR-1.32, AST-86, ALT-53, ALP-292 CK-346, trop <0.02, NH3-61.70 (about 70 earlier), Lipase -263, ETOH-244.6 Pt received famotidine, zofran , mylanta and NS Abd US-01/04/19: Atrophic cirrhotic liver. No focal hepatic lesion. No cholelithiais or biliary duct dilation Head CT 01/03/19: No acute pathology CTAP 01/04/19: Findings consistent with cirrhosis (small size liver, irregular and hypodense, consistent with advanced hepatocellular disease. Enlarged spleen with serpiginous vascular structures throughout, the upper abdomen consistent with varices). No pancreatitis or acute pathol in abdomen/pelvis. Nuclear stress test 05/2018: No ischemic pEKG changes noted during peak lexiscan stress test. Moderate severity reversable ischemia in the inferior wall with a calculated LVEF of 66% History Source: Patient, Significant Other Limitations to Obtaining History: Clinical Condition - Past Medical History Cardiovascular: Yes: CAD Gastrointestinal: Yes: Esophageal Varices Hepatobiliary: Yes: Cirrhosis Heme/Onc: Yes: Thrombocytopenia Endocrine: Yes: Diabetes Mellitus - Past Surgical History Past Surgical History: Yes: None - Smoking History Smoking history: Never smoked Have you smoked in the past 12 months: No Aproximately how many cigarettes per day: 0 - Alcohol/Substance Use Hx Alcohol Use: Yes (1-2 Henneseys a day) History of Substance Use: reports: None - Social History Usual Living Arrangement: Yes: With Spouse 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, 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 History of Recent Travel: No Home Medications - Allergies Allergies/Adverse Reactions: Allergies Allergy/AdvReac Type Severity Reaction Status Date / Time No Known Allergies Allergy Verified 01/04/19 09:09 - Home Medications Home Medications: Ambulatory Orders Aspirin [ASA -] 81 mg PO DAILY 06/06/12 Carvedilol [Coreg] 25 mg PO BID 06/06/12 metFORMIN HCL [Glucophage -] 1,000 mg PO BID 06/06/12 Clopidogrel Bisulfate [Plavix -] 75 mg PO DAILY 06/25/12 Insulin (Levemir) [Levemir Flexpen -] 35 units SQ HS 05/25/17 Simvastatin 20 mg PO DAILY 05/25/17 Insulin (Levemir) [Levemir Flexpen -] 30 units SQ DAILY 05/26/17 Empagliflozin [Jardiance] 10 mg PO DAILY 06/04/18 Family Disease History - Family Disease History Family Disease History: Diabetes: Father Review of Systems - Review of Systems Constitutional: reports: Lethargy, Loss of Appetite, Malaise. denies: Chills, Diaphoresis, Fever HENT: denies: Difficult Swallowing Neck: denies: Stiffness Cardiovascular: denies: Chest Pain, Edema, Palpitations, Shortness of Breath Respiratory: denies: Cough, Orthopnea, PND Gastrointestinal: reports: Abdominal Pain, Nausea. denies: Diarrhea, Rectal Bleeding Genitourinary: denies: Burning, Dysuria, Flank Pain Integumentary: denies: Pruritis Neurological: reports: Change in LOC, Tremors Physical Examination Vital Signs: Vital Signs Temperature 98 F 01/04/19 17:21 Pulse Rate 67 01/04/19 17:21 Respiratory Rate 18 01/04/19 17:21 Blood Pressure 149/78 01/04/19 17:21 O2 Sat by Pulse Oximetry (%) 98 01/04/19 17:21 Constitutional: Yes: Calm Eyes: Yes: Conjunctiva Clear, PERRL. No: Sclera Icterus HENT: Yes: Atraumatic. No: Epistaxis, Thrush Neck: Yes: Supple Cardiovascular: Yes: Regular Rate and Rhythm, S1, S2 Respiratory: Yes: CTA Bilaterally Gastrointestinal: Yes: Soft, Abdomen, Obese. No: Ascites ...Rectal Exam: Yes: Sphincter Tone Normal, Other (Relatively good anal hygiene , no skin tags or external hemorrhoids, no palpable mass, no stool in rectal vault. Gloved finger with brown stool). No: Hemorrhoids/External, Hemorrhoids/ Internal, Mass Renal/: No: Bladder Distention, CVA Tenderness - Left, CVA Tenderness - Right Musculoskeletal: Yes: WNL Extremities: Yes: WNL Edema: No Peripheral Pulses WNL: Yes Integumentary: Yes: WNL Neurological: Yes: Lethargy, Tremors. No: Confusion, Dysarthria, Pre-Existing Deficit ...Motor Strength: WNL Labs: CBC, BMP 01/04/19 10:25 01/04/19 10:25 Imaging - Results Cat Scan: Report Reviewed Ultrasound: Report Reviewed Other: Report Reviewed (Nuclear stress test 05/2018) Assessment/Plan Ambulatory Orders Aspirin [ASA -] 81 mg PO DAILY 06/06/12 Carvedilol [Coreg] 25 mg PO BID 06/06/12 metFORMIN HCL [Glucophage -] 1,000 mg PO BID 06/06/12 Clopidogrel Bisulfate [Plavix -] 75 mg PO DAILY 06/25/12 Insulin (Levemir) [Levemir Flexpen -] 35 units SQ HS 05/25/17 Simvastatin 20 mg PO DAILY 05/25/17 Insulin (Levemir) [Levemir Flexpen -] 30 units SQ DAILY 05/26/17 Empagliflozin [Jardiance] 10 mg PO DAILY 06/04/18 Current Medications Carvedilol (Coreg -) 25 mg PO BID [facility] Last Admin: 01/04/19 21:49 Dose: 25 mg Sodium Chloride (Normal Saline -) 1,000 mls @ 75 mls/hr IV ASDIR [facility] Last Admin: 01/04/19 20:39 Dose: 75 mls/hr Insulin Aspart (Novolog Vial Sliding Scale -) 1 vial SQ ACHS [facility]; Protocol Last Admin: 01/04/19 21:51 Dose: 8 units Insulin Detemir (Levemir Vial) 10 units SQ BID [facility] Last Admin: 01/04/19 21:49 Dose: 10 units Lactulose (Cephulac (Oral Use)) 20 gm PO TID [facility] Last Admin: 01/04/19 21:49 Dose: Not Given Pantoprazole Sodium (Protonix Iv) 40 mg IVPUSH DAILY [facility] Last Admin: 01/04/19 20:39 Dose: 40 mg Pt is a 68 yo M with PMHx of CAD s/p stents, HTN, DM, HLD, cirrhosis with varices, alcohol use disorder presenting from home with a hx of abdominal pain, nausea, AMS for past 4 days, presented a day earlier, improved on lactulose, and signed out AMA, now presenting again for worsening symptoms: #Acute on chronic decompensated hepatic encephalopathy Possibly grade 3 hepatic encephalopathy CIWA-8 Katie's discriminant Function-15.3 (good prognosis), no need for steroid administration Child Maldonado score-10(child class C) Life expectancy 1-3 years, abdominal surgery wade-op mortality 82% MELD score -Na-15 points-<2% Estimated 90 day mortality pt could be investigated for transplant, but active drinking may disqualify him Moreover his periop risk is high With significant hepatocellular disease, will start patient on ativan protocol rather than librium Continue Coreg Give lactulose, titrate to 1-2 bowel movements per day Avoid any hepatotoxic medications- NSAIDS and Tylenol Hold statins Dr Contreras consulted #Possible alcoholic gastritis With hx of abdominal pain, hx of retching with varices Iv protonix 40mg daily #CAD s/p stents Last stents reported to be in 2004 Pt on ASA/Plavix Will hold in setting of acute thrombocytopenia likely caused by alcohol ingestion #Thrombocytopenia No bleeding from any orifice Stool occult SCDS- avoid chemical PPX #Leucopenia Pt appears to run leucopenic at baseline Likely alcohol related Not neutropenic- [id number] #HTN Cont coreg #DM Hold metformin Pt on home Levemir- 30uam, 32 U HS Cont 10u bid ISS ACHS BGM ACHS #HLD Hold statin In decompensated liver dx #cirrhosis with varices No bleeding varices noted at this time #alcohol use disorder Pt counselled on cessation May need rehab Cont ativan protocol Fall precautions Seizure precautions Neurochecks protonix SCDs Medsurg Visit type - Emergency Visit Emergency Visit: Yes ED Registration Date: 01/04/19 Care time: The patient presented to the Emergency Department on the above date and was hospitalized for further evaluation of their emergent condition. - New Patient This patient is new to me today: Yes Date on this admission: 01/04/19 - Critical Care Critical Care patient: No ATTENDING PHYSICIAN STATEMENT I saw and evaluated the patient. I reviewed the resident's note and discussed the case with the resident. I agree with the resident's findings and plan as documented. SUBJECTIVE: OBJECTIVE: ASSESSMENT AND PLAN:
[2019-01-04 18:45] VITALS: BMI 22.2
[2019-01-04] MEDS: PANTOPRAZOLE SODIUM 40 MG VIAL IVPUSH SCH (20:39)
[2019-01-04] MEDS: SODIUM CHLORIDE 1,000 ML IV SCH (20:39)
[2019-01-04] MEDS ORDERED: PT OWN MED DRAWER 7, Y5N ONE (21:26)
[2019-01-04] MEDS ORDERED: INSULIN (NOVOLOG) ASPART 100 UNITS/ML 10ML VIAL ONE (21:27)
[2019-01-04] MEDS: CARVEDILOL 25 MG TABLET (FP) PO SCH (21:49)
[2019-01-04] MEDS: LACTULOSE 20 GM/30 ML UDC (FOR ORAL USE ONLY) PO SCH (21:49)
[2019-01-04] MEDS: INSULIN (LEVEMIR) 100 UNITS/ML UNITS SQ SCH (21:49)
[2019-01-04] MEDS: INSULIN SLIDING SCALE (NOVOLOG) 1 VIAL SQ SCH (21:51)
[2019-01-04] MEDS ORDERED: INSULIN SLIDING SCALE (NOVOLOG) 1 VIAL SQ SCH (22:00)
[2019-01-05] MEDS: LACTULOSE 20 GM/30 ML UDC (FOR ORAL USE ONLY) PO SCH ×3 (06:13→21:34)
[2019-01-05] MEDS: INSULIN SLIDING SCALE (NOVOLOG) 1 VIAL SQ SCH ×4 (06:13→21:35)
[2019-01-05 07:56] LABS: BASO % 0.7 % (0-2.0); EOS % 2.7 % (0-4.5); HEMATOCRIT 37.4 % (35.4-49); HEMOGLOBIN 13.2 GM/dL (11.7-16.9); LYMPH % 33.1 % (8-40); MCH 35.2 pg (25.7-33.7); MCHC 35.2 g/dl (32.0-35.9); MEAN CELL VOLUME 99.9 fl (80-96); MEAN PLT VOLUME 8.8 fl (7.5-11.1); MONO % 10.1 % (3.8-10.2); NEUT % 53.4 % (42.8-82.8); PLATELET COUNT 43 K/MM3 (134-434); RBC 3.74 M/mm3 (4.00-5.60); WHITE BLOOD COUNT 2.5 K/mm3 (4.0-10.0)
[2019-01-05 08:33] LABS: INR 1.39 (0.83-1.09); PROTHROMBIN TIME (PATIENT) 16.5 SEC (9.7-13.0)
--- NOTE | 2019-01-05 08:33 | EKG ---
Test Reason : Blood Pressure : / mmHG Vent. Rate : 068 BPM Atrial Rate : 068 BPM P-R Int : 206 ms QRS Dur : 128 ms QT Int : 462 ms P-R-T Axes : 031 -76 -16 degrees QTc Int : 491 ms NORMAL SINUS RHYTHM LEFT AXIS DEVIATION NON-SPECIFIC INTRA-VENTRICULAR CONDUCTION BLOCK ABNORMAL ECG WHEN COMPARED WITH ECG OF 03-JAN-2019 18:02, NON-SPECIFIC INTRA-VENTRICULAR CONDUCTION BLOCK HAS REPLACED RIGHT BUNDLE BRANCH BLOCK Confirmed by BRIAN PEARSON, JACK ([id number]) on 01/05/2019 8:32:30 AM Referred By: Confirmed By:JACK TORRES MD
[2019-01-05 08:59] LABS: ALBUMIN 2.7 g/dl (3.4-5.0); ALK PHOS 213 U/L (45-117); ANION GAP 8 MMOL/L (8-16); BILIRUBIN,DIRECT 1.1 mg/dL (0.0-0.2); BILIRUBIN,TOTAL 3.9 mg/dL (0.2-1); CHLORIDE 104 mmol/L (98-107); CO2 25 mmol/L (21-32); CREATININE 0.8 mg/dL (0.55-1.3); GLUCOSE,RANDOM 254 mg/dL (74-106); MAGNESIUM 1.6 mg/dL (1.8-2.4); PHOSPHOROUS 2.3 mg/dL (2.5-4.9); POTASSIUM 3.2 mmol/L (3.5-5.1); SGOT/AST 69 U/L (15-37); SGPT/ALT 46 U/L (13-61); SODIUM 137 mmol/L (136-145); TOT PROT 6.6 g/dl (6.4-8.2)
--- NOTE | 2019-01-05 09:18 | CON.GI ---
Addendum entered and electronically signed by Mariano Urena, RESIDENT 01/05/19 12 :06: pt has an appointment with Dr Javed Contreras and he has an apt for january 13 Original Note: Consult Consult Specialty:: GI Referred by:: Fredo Garcia Reason for Consultation:: AMS , N/V , Abdominal apin , Alcoholic liver disease - History of Present Illness Chief Complaint: Altered mental status. N/V History of Present Illness: Pt is a 68 yo M with PMHx of CAD s/p stents, HTN, DM, HLD, cirrhosis with varices, alcohol use disorder presenting from home with a hx of abdominal pain, nausea, AMS for past 4 days. Pt was said to have binged about one week ago at a alliance party after which he started drinking 1-2 bottles of [place] everyday. About 2- 3 days ago, Pt be started to have nausea and retching with dry heaves, no actual vomiting, slurring of speech with increased tremulousness. Per , this usually happens when his ammonia level is high. No fever, no diarrhea, no blood in stool, no sick contacts. Pt became lethargic and had to be brought to the ED yesterday. Per , in the ED yesterday, he got lactulose and fluids, felt better and back to his baseline mental status then signed himself AMA. When they got home, around 2am, he started the nausea again with dry heaves and they called back the ED and were called to come back in. Pt reports having similar symptoms in [place] between August and October 2018, which also improved with lactulose. Per , pt has intermittent periods of sobriety from drinking and then binges. No prior seizures, no prior hematemesis. Pt followed Dr Contreras in past, (appears non compliant) and was noted to have mild varices on EGD,with cirrhosis. No chest pain, SOB, no dysuria or hematuria. Since being in the ED and receiving medications, the nausea has improved. ED: WBC-3.0 (at baseline for him), platelets 46, Nicolas 3.3 (from 1.5 a day prior) , INR-1.32, AST-86, ALT-53, ALP-292 CK-346, trop <0.02, NH3-61.70 (about 70 earlier), Lipase -263, ETOH-244.6 Pt received famotidine, zofran , mylanta and NS Abd US-01/04/19: Atrophic cirrhotic liver. No focal hepatic lesion. 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 (AMS after drinking possiple hepatic encephalopathy ) Cardio/Vascular: Yes: CAD Gastrointestinal: Yes: Esophageal Varices Hepatobiliary: Yes: Cirrhosis Endocrine: Yes: Diabetes Mellitus - Past Surgical History Past Surgical History: Yes: None - Alcohol/Substance Use Hx Alcohol Use: Yes (1-2 Henneseys a day drink wine in last alliance party ?) History of Substance Use: reports: None - Smoking History Smoking history: Never smoked Have you smoked in the past 12 months: No Aproximately how many cigarettes per day: 0 - Social History Usual Living Arrangement: With Spouse 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, 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 History of Recent Travel: No <Mariano Urena - Last Filed: 01/05/19 11:25> Home Medications <Mariano Urena - Last Filed: 01/05/19 11:25> <Rakel Ford - Last Filed: 01/05/19 12:52> - Allergies Allergies/Adverse Reactions: Allergies Allergy/AdvReac Type Severity Reaction Status Date / Time No Known Allergies Allergy Verified 01/04/19 09:09 - Home Medications Home Medications: Ambulatory Orders Aspirin [ASA -] 81 mg PO DAILY 06/06/12 Carvedilol [Coreg] 25 mg PO BID 06/06/12 metFORMIN HCL [Glucophage -] 1,000 mg PO BID 06/06/12 Clopidogrel Bisulfate [Plavix -] 75 mg PO DAILY 06/25/12 Insulin (Levemir) [Levemir Flexpen -] 35 units SQ HS 05/25/17 Simvastatin 20 mg PO DAILY 05/25/17 Insulin (Levemir) [Levemir Flexpen -] 30 units SQ DAILY 05/26/17 Empagliflozin [Jardiance] 10 mg PO DAILY 06/04/18 Family Disease History - Family Disease History Family Disease History: Diabetes: Father <Mariano Urena - Last Filed: 01/05/19 11:25> Review of Systems - Review of Systems Constitutional: reports: No Symptoms. denies: Chills, Fever Eyes: denies: Blurred Vision, Double Vision Neck: denies: Decreased ROM Cardiovascular: denies: Chest Pain Respiratory: denies: Cough, Hemoptysis Gastrointestinal: reports: Abdominal Pain (LUQ pain 09/05), Vomiting (one time before admssion). denies: Melena, Nausea, Rectal Bleeding, Vomiting Blood Genitourinary: denies: Burning, Discharge Musculoskeletal: reports: No Symptoms Neurological: denies: Dizziness, Incoordination, Numbness, Parasthesia, Seizure , Syncope, Tremors, Weakness Endocrine: reports: No Symptoms <Mariano Urena - Last Filed: 01/05/19 11:25> Physical Exam-GI Vital Signs: Vital Signs Temperature 98 F 01/05/19 06:00 Pulse Rate 66 01/05/19 06:00 Respiratory Rate 18 01/05/19 06:00 Blood Pressure 158/84 01/05/19 06:00 O2 Sat by Pulse Oximetry (%) 98 01/04/19 22:56 Constitutional: Yes: Well Nourished, No Distress, Poor Hygeine Eyes: Yes: Conjunctiva Clear HENT: Yes: Atraumatic, Normocephalic Neck: Yes: Supple Cardiovascular: Yes: Regular Rate and Rhythm, S1, S2 Respiratory: Yes: CTA Bilaterally. No: Stridor Gastrointestinal Inspection: Yes: Distention (very mild). No: Ascites, Scars ...Auscultate: Yes: Normoactive Bowel Sounds ...Palpate: Yes: Soft, Tenderness (deep LUQ), Tenderness, Epigastium. No: Firm/ Rigid, Guarding, Tenderness, Rebound ...Percussion: Yes: Tympanitic ...Rectal Exam: Yes: Deferred Genitourinary: No: CVA Tenderness - Left Extremities: No: Erythema Edema: No Peripheral Pulses WNL: Yes (+2 DP ) Neurological: Yes: Alert, Oriented. No: Ataxia, Dysarthria, Loss of Sensation, Numbness, Paresthesia Labs: CBC, BMP 01/05/19 07:00 01/05/19 07:00 INR, PTT INR 1.39 (0.83-1.09) H 01/05/19 07:00 <RomelArpiti - Last Filed: 01/05/19 11:25> Vital Signs: Vital Signs Temperature 98.5 F 01/05/19 10:00 Pulse Rate 68 01/05/19 10:00 Respiratory Rate 20 01/05/19 10:00 Blood Pressure 160/87 01/05/19 10:00 O2 Sat by Pulse Oximetry (%) 99 01/05/19 09:00 Labs: CBC, [facility] 01/05/19 07:00 01/05/19 07:00 INR, PTT INR 1.39 (0.83-1.09) H 01/05/19 07:00 <Rakel Ford - Last Filed: 01/05/19 12:52> Imaging - Results Cat Scan: Report Reviewed (atrophic cirrhotic liver with nodularity 13. mm , no hepatic lesion ,) Ultrasound: Report Reviewed (no cholelithisis , no CBD dilation 3 mm) <Arpit Urenai - Last Filed: 01/05/19 11:25> Problem List - Problems (1) Hepatic encephalopathy Assessment/Plan: resolved AAO3 cont lactolose follow up out pt with GI Dr Mishel Hernández alcohol cessation Code(s): K72.90 - HEPATIC FAILURE, UNSPECIFIED WITHOUT COMA (2) Hyperammonemia Assessment/Plan: Ammonia 61.7 cont laxctolose 20 po TID repeat lab in AM Code(s): E72.20 - DISORDER OF UREA CYCLE METABOLISM, UNSPECIFIED (3) Liver cirrhosis Assessment/Plan: AFP US Q 6 months follow up out pt refuse EGD inpatient to screen for varices and ulcers Avoid NSAIDS and Tylenol follow up out pt Code(s): K74.60 - UNSPECIFIED CIRRHOSIS OF LIVER Qualifiers: Hepatic cirrhosis type: alcoholic cirrhosis Ascites presence: unspecified Qualified Code(s): K70.30 - Alcoholic cirrhosis of liver without ascites (4) Abdominal pain Assessment/Plan: LUQ pain likely gastritis pain per primary team careful with zofran as QTC 491 COnt PPI 40 Po daily Code(s): R10.9 - UNSPECIFIED ABDOMINAL PAIN (5) Elevated LFTs Assessment/Plan: ASt > Alt 2: 1 , alocoholic liver disease repeat lab in Am US reviewed Alcohol abstinence Code(s): R94.5 - ABNORMAL RESULTS OF LIVER FUNCTION STUDIES (6) H/O heart artery stent Code(s): Z95.5 - PRESENCE OF CORONARY ANGIOPLASTY IMPLANT AND GRAFT (7) Nausea & vomiting Assessment/Plan: as above improving Code(s): R11.2 - NAUSEA WITH VOMITING, UNSPECIFIED (8) Alcohol dependence Code(s): F10.20 - ALCOHOL DEPENDENCE, UNCOMPLICATED <Mariano Urena - Last Filed: 01/05/19 11:25> Assessment/Plan # Gastritis with N/V and abdominal pain LUQ # Alcohol liver disease/cirrhosis # Alcoholic dependence # Hypoalbuminia # hypophosphatemia , hypomagnesia # 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 vs cirrhosis # elevated ammonia level R.O Hepatic encephalopathy Plan * pain meds per primary team , Avoids NSAID and Tyelenol , promethazin for nausea(QTC 491 ) , PPI 40 PO daily * Alcohol Abstinence, 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 * Liver US Q 6 months , AFP , * Pt need EGD to screen for varices and to R.O Gastric US pt refused and he said he had recently EGD in [place] (not sure what s the result * no current withdrawal symptoms , no tremors , no nystagmus , AAOx3 , * replenishe electrolytes as needed * pt need to follow up with GI as out pt he said he has an appointment on with 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 Urena, agree with above assessment and plan. 68yo male h/o CAD s/p PCI (on asa/plavix), alcoholic liver disease/cirrhosis, esophageal and gastric varices (EGD 04/2017) presenting with nausea/vomiting and ?altered mentation. MELD 15. Pt has been largely noncompliant previously followed with Dr. Contreras, now lost to follow up. Alcohol history also varies, states last drink was 2 weeks ago though reporting daily alexia to primary team. Currently feeling better, not encephalopathic, tolerating po, moving bowels, no overt bleeding. No ascites appreciated. Assessment/plan: Alcoholic liver disease/cirrhosis/compensated: -Continue supportive measures, PPI daily, lactulose to be titrated to 2-3 loose bms. No need to trend ammonia levels. -Would need to clarify with cardiology again risks/benefits of continuing antiplt therapies as this would place pt at increased risk of bleeding in setting of underlying varices. Unclear compliance with NSBB and pt should have repeat EGD within 4-6 months for variceal surveillance. -We have emphasized importance to patient and his , of etoh abstinence and risks of ongoing liver injury and its implications if he continues to drink. Offered appt locally if pt is willing to resume care/follow up. Pt has upcoming Hepatology appt at [facility] with Dr. Calhoun on 01/13. <Rakel Ford - Last Filed: 01/05/19 12:52>
--- NOTE | 2019-01-05 09:30 | PN ---
Physical Exam: SUBJECTIVE: Patient seen and examined. Awake, sitting up in chair, no more nausea, passing stool, 2 times at night and 2 in am. C/o of mild abdominal pain OBJECTIVE: Vital Signs Period Temp Pulse Resp BP Sys/Argueta Pulse Ox Last 24 Hr 98 F-98.1 F 66-78 18-18 132-158/74-92 96-98 Vital Signs Temp 98.0 F 01/05/19 21:01 Pulse 67 01/05/19 21:01 Resp 18 01/05/19 21:01 BP 149/88 01/05/19 21:01 Pulse Ox 99 01/05/19 21:00 Intake & Output 01/05/19 01/05/19 01/06/19 11:59 23:59 11:59 Intake Total 900 1050 Balance 900 1050 Weight 68.356 kg Intake: IV 900 750 Normal Saline - 1,000 ml 900 750 @ 75 mls/hr IV ASDIR DIEGO Rx#:[id number] Oral 300 Other: Voiding Method Toilet Incontinent # Unmeasured Voids Whitney 3 Bowel Movement No Yes # Bowel Movements 4 Weight Measurement Method Standing Scale GENERAL: The patient is awake, alert, and fully oriented, in no acute distress. HEAD: Normal with no signs of trauma. EYES: PERRL, questionable mild sclera icterus vs dirty sclera ENT: moist mucous membranes. LUNGS: Breath sounds equal, clear to auscultation bilaterally, no wheezes, no crackles HEART: Regular rate and rhythm, S1, S2 without murmur, rub or gallop. ABDOMEN: Soft, obese, nontender, normoactive bowel sounds, EXTREMITIES: 2+ pulses, warm, well-perfused, no edema. NEUROLOGICAL: Cranial nerves II through XII grossly intact. Normal speech, gait not observed. CBC, BMP 01/05/19 07:00 01/05/19 07:00 Laboratory Results - last 24 hr 01/04/19 01/04/19 01/04/19 10:25 10:25 10:25 WBC 3.0 L RBC 3.77 L Hgb 13.2 Hct 36.9 MCV 97.9 H MCH 35.0 H MCHC 35.8 RDW 15.0 Plt Count 46 L MPV 8.1 Absolute Neuts (auto) 1.8 Neutrophils % 60.7 D Lymphocytes % 27.5 D Monocytes % 10.1 Eosinophils % 1.2 Basophils % 0.5 Nucleated RBC % 0 PT with INR INR PTT (Actin FS) Sodium 138 Potassium 3.5 Chloride 104 Carbon Dioxide 26 Anion Gap 8 BUN 7.0 Creatinine 0.7 Est GFR (CKD-EPI)AfAm 113.18 Est GFR (CKD-EPI)NonAf 97.65 POC Glucometer Random Glucose 197 H Calcium 8.6 Phosphorus Magnesium Total Bilirubin 3.3 H Direct Bilirubin AST 86 H ALT 53 Alkaline Phosphatase 292 H Ammonia 61.70 H Creatine Kinase 346 H Creatine Kinase Index 0.2 CK-MB (CK-2) < 1.0 Troponin I < 0.02 Total Protein 7.0 Albumin 3.0 L Lipase 263 Stool Occult Blood 01/04/19 01/04/19 01/04/19 10:25 18:01 21:47 WBC RBC Hgb Hct MCV MCH MCHC RDW Plt Count MPV Absolute Neuts (auto) Neutrophils % Lymphocytes % Monocytes % Eosinophils % Basophils % Nucleated RBC % PT with INR 15.60 H INR 1.32 H PTT (Actin FS) Sodium Potassium Chloride Carbon Dioxide Anion Gap BUN Creatinine Est GFR (CKD-EPI)AfAm Est GFR (CKD-EPI)NonAf POC Glucometer 348 Random Glucose Calcium Phosphorus Magnesium Total Bilirubin Direct Bilirubin AST ALT Alkaline Phosphatase Ammonia Creatine Kinase Creatine Kinase Index CK-MB (CK-2) Troponin I Total Protein Albumin Lipase Stool Occult Blood Negative 01/05/19 01/05/19 01/05/19 06:12 07:00 07:00 WBC RBC Hgb Hct MCV MCH MCHC RDW Plt Count MPV Absolute Neuts (auto) Neutrophils % Lymphocytes % Monocytes % Eosinophils % Basophils % Nucleated RBC % PT with INR 16.50 H INR 1.39 H PTT (Actin FS) 35.0 Sodium 137 Potassium 3.2 L Chloride 104 Carbon Dioxide 25 Anion Gap 8 BUN 6.0 L Creatinine 0.8 Est GFR (CKD-EPI)AfAm 107.13 Est GFR (CKD-EPI)NonAf 92.44 POC Glucometer 250 Random Glucose 254 H Calcium 8.0 L Phosphorus 2.3 L Magnesium 1.6 L Total Bilirubin 3.9 H Direct Bilirubin 1.1 H AST 69 H ALT 46 Alkaline Phosphatase 213 H Ammonia Creatine Kinase 276 Creatine Kinase Index 0.3 CK-MB (CK-2) < 1.0 Troponin I Total Protein 6.6 Albumin 2.7 L Lipase Stool Occult Blood 01/05/19 01/05/19 07:00 07:00 WBC 2.5 L RBC 3.74 L Hgb 13.2 Hct 37.4 MCV 99.9 H MCH 35.2 H MCHC 35.2 RDW 15.0 Plt Count 43 L MPV 8.8 Absolute Neuts (auto) 1.3 L Neutrophils % 53.4 Lymphocytes % 33.1 D Monocytes % 10.1 Eosinophils % 2.7 D Basophils % 0.7 Nucleated RBC % 0 PT with INR INR PTT (Actin FS) Cancelled Sodium Potassium Chloride Carbon Dioxide Anion Gap BUN Creatinine Est GFR (CKD-EPI)AfAm Est GFR (CKD-EPI)NonAf POC Glucometer Random Glucose Calcium Phosphorus Magnesium Total Bilirubin Direct Bilirubin AST ALT Alkaline Phosphatase Ammonia Creatine Kinase Creatine Kinase Index CK-MB (CK-2) Troponin I Total Protein Albumin Lipase Stool Occult Blood Active Medications Generic Name Dose Route Start Last Admin Trade Name Freq PRN Reason Stop Dose Admin Carvedilol 25 mg 01/04/19 22:00 01/04/19 21:49 Coreg - PO 25 mg BID DIEGO Administration Sodium Chloride 1,000 mls @ 75 mls/hr 01/04/19 18:00 01/04/19 20:39 Normal Saline - IV 75 mls/hr ASDIR DIEGO Administration Insulin Aspart 1 vial 01/04/19 22:00 01/05/19 06:13 Novolog Vial Sliding Scale - SQ 4 units ACHS DIEGO Administration Protocol Insulin Detemir 10 units 01/04/19 22:00 01/04/19 21:49 Levemir Vial SQ 10 units BID DIEGO Administration Lactulose 20 gm 01/04/19 22:00 01/05/19 06:13 Cephulac (Oral Use) PO 20 gm TID DIEGO Administration Pantoprazole Sodium 40 mg 01/04/19 18:00 01/04/19 20:39 Protonix Iv IVPUSH 40 mg DAILY DIEGO Administration Ambulatory Orders Aspirin [ASA -] 81 mg PO DAILY 06/06/12 Carvedilol [Coreg] 25 mg PO BID 06/06/12 metFORMIN HCL [Glucophage -] 1,000 mg PO BID 06/06/12 Clopidogrel Bisulfate [Plavix -] 75 mg PO DAILY 06/25/12 Insulin (Levemir) [Levemir Flexpen -] 35 units SQ HS 05/25/17 Simvastatin 20 mg PO DAILY 05/25/17 Insulin (Levemir) [Levemir Flexpen -] 30 units SQ DAILY 05/26/17 Empagliflozin [Jardiance] 10 mg PO DAILY 06/04/18 Current Medications Carvedilol (Coreg -) 25 mg PO BID [facility] Last Admin: 01/04/19 21:49 Dose: 25 mg Sodium Chloride (Normal Saline -) 1,000 mls @ 75 mls/hr IV ASDIR [facility] Last Admin: 01/04/19 20:39 Dose: 75 mls/hr Insulin Aspart (Novolog Vial Sliding Scale -) 1 vial SQ ACHS [facility]; Protocol Last Admin: 01/05/19 06:13 Dose: 4 units Insulin Detemir (Levemir Vial) 10 units SQ BID [facility] Last Admin: 01/04/19 21:49 Dose: 10 units Lactulose (Cephulac (Oral Use)) 20 gm PO TID [facility] Last Admin: 01/05/19 06:13 Dose: 20 gm Pantoprazole Sodium (Protonix Iv) 40 mg IVPUSH DAILY [facility] Last Admin: 01/04/19 20:39 Dose: 40 mg Abd US-01/04/19: Atrophic cirrhotic liver. No focal hepatic lesion. No cholelithiais or biliary duct dilation Head CT 01/03/19: No acute pathology CTAP 01/04/19: Findings consistent with cirrhosis (small size liver, irregular and hypodense, consistent with advanced hepatocellular disease. Enlarged spleen with serpiginous vascular structures throughout, the upper abdomen consistent with varices). No pancreatitis or acute pathol in abdomen/pelvis. Nuclear stress test 05/2018: No ischemic EKG changes noted during peak lexiscan stress test. Moderate severity reversable ischemia in the inferior wall with a calculated LVEF of 66% ASSESSMENT/PLAN: Pt is a 68 yo M with PMHx of CAD s/p stents, HTN, DM, HLD, cirrhosis with varices, alcohol use disorder presenting from home with a hx of abdominal pain, nausea, AMS for past 4 days, presented a day earlier, improved on lactulose, and signed out AMA, now presenting again for worsening symptoms: #Acute on chronic decompensated hepatic encephalopathy Possibly grade 3 hepatic encephalopathy- resolved on lactulose CIWA-0 Continue Coreg Cont lactulose Avoid any hepatotoxic medications- NSAIDS and Tylenol Hold statins Dr Contreras consulted-seen by GI 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 needed prior to EGD Per GI team -pt can also follow with [facility] GI clinic # [phone] GI was in touch with pt's who confirmed he has an appointment with GI Dr Adela Hernández [place] on 13 of January Pt had EGD done [facility] On April 2017 - Distal esophagus small varices with large gastric varices and normal duodenal mucosa Cont BB #Possible alcoholic gastritis With hx of abdominal pain, hx of retching with varices Iv protonix 40mg daily may switch to PO #CAD s/p stents Last stents reported to be in 2004 Pt on ASA/Plavix Will hold in setting of acute thrombocytopenia likely caused by alcohol ingestion #Thrombocytopenia No bleeding from any orifice Stool occult-negative SCDS- avoid chemical PPX #Leucopenia Pt appears to run leucopenic at baseline Likely alcohol related #HTN Cont coreg #DM Hold metformin Pt on home Levemir- 30uam, 32 U HS Cont 10u bid ISS ACHS BGM ACHS #HLD Hold statin In decompensated liver dx #cirrhosis with varices No bleeding varices noted at this time For outpt EGD #alcohol use disorder Pt counselled on cessation May need rehab Cont ativan protocol Fall precautions Seizure precautions Neurochecks protonix SCDs Medsurg Visit type - Emergency Visit Emergency Visit: Yes ED Registration Date: 01/04/19 Care time: The patient presented to the Emergency Department on the above date and was hospitalized for further evaluation of their emergent condition. - New Patient This patient is new to me today: No - Critical Care Critical Care patient: No - Discharge Referral Referred to [facility] No ATTENDING PHYSICIAN STATEMENT I saw and evaluated the patient. I reviewed the resident's note and discussed the case with the resident. I agree with the resident's findings and plan as documented. SUBJECTIVE: OBJECTIVE: ASSESSMENT AND PLAN:
[2019-01-05] MEDS: PANTOPRAZOLE SODIUM 40 MG VIAL IVPUSH SCH (10:05)
[2019-01-05] MEDS: CARVEDILOL 25 MG TABLET (FP) PO SCH ×2 (10:05→21:34)
[2019-01-05] MEDS: INSULIN (LEVEMIR) 100 UNITS/ML UNITS SQ SCH ×2 (10:05→21:34)
[2019-01-05] MEDS ORDERED: INSULIN (NOVOLOG) ASPART 100 UNITS/ML 10ML VIAL ONE (11:14)
--- NOTE | 2019-01-05 12:57 | PN ---
Teaching Attending Note Name of Resident: Mariano Urena (Gastroenterology) ATTENDING PHYSICIAN STATEMENT I saw and evaluated the patient with Dr. Urena. I reviewed the resident's note and discussed the case with the resident. I agree with the resident's findings and plan as documented. Please also refer to addendum as noted below. SUBJECTIVE: Pt appears well, AAOX3 Abd soft, nontender, nondistended No LE edema No asterixis Brown stool on rectal exam OBJECTIVE: Labs reviewed. US and CT imaging reviewed: cirrhotic appearing liver, no liver lesions, no ascites ASSESSMENT AND PLAN: Alcoholic liver disease/cirrhosis/compensated: -Continue supportive measures, PPI daily, lactulose to be titrated to 2-3 loose bms. No need to trend ammonia levels. -Would need to clarify with cardiology again risks/benefits of continuing antiplt therapies as this would place pt at increased risk of bleeding in setting of underlying varices. Unclear compliance with NSBB and pt should have repeat EGD within 4-6 months for variceal surveillance. -We have emphasized importance, to patient and his , of etoh abstinence and risks of ongoing liver injury and its implications if he continues to drink. Offered appt locally if pt is willing to resume care/follow up. Pt has upcoming Hepatology appt at [facility] on 01/13.
[2019-01-05] MEDS: POTASSIUM CHLORIDE TABS 10 MEQ TABLET.ER (FP) PO SCH ×2 (13:50→21:34)
[2019-01-05] MEDS: SODIUM CHLORIDE 1,000 ML IV SCH (18:14)
--- NOTE | 2019-01-05 19:12 | PN ---
Teaching Attending Note Name of Resident: Melissa Novoa ATTENDING PHYSICIAN STATEMENT I saw and evaluated the patient. I reviewed the resident's note and discussed the case with the resident. I agree with the resident's findings and plan as documented. SUBJECTIVE: Mr Tolliver is without complaint today. Denies cp, sob, n/v. OBJECTIVE: Last Vital Signs Temp Pulse Resp BP Pulse Ox 36.8 C 65 20 148/87 99 01/05/19 18:00 01/05/19 18:00 01/05/19 18:00 01/05/19 18:00 01/05/19 09:00 Gen: nad Pulm: ctab w/o w/r/r CV: rrr w/o m/r/g Abd: +bs, s/nt/nd Ext: no c/c/e CBC, BMP 01/05/19 07:00 01/05/19 07:00 ASSESSMENT AND PLAN: Problem List - Problems (1) Hepatic encephalopathy Assessment/Plan: -resolved with lactulose -continue -agree do not need to trend ammonia level Code(s): K72.90 - HEPATIC FAILURE, UNSPECIFIED WITHOUT COMA (2) Alcohol dependence Assessment/Plan: -patient counselled on cessation Code(s): F10.20 - ALCOHOL DEPENDENCE, UNCOMPLICATED (3) Liver cirrhosis Assessment/Plan: -appreciate GI assistance -AFP and hepatitis labs sent -has follow up with coating supervisor -outpatient EGD Code(s): K74.60 - UNSPECIFIED CIRRHOSIS OF LIVER Qualifiers: Hepatic cirrhosis type: alcoholic cirrhosis Ascites presence: unspecified Qualified Code(s): K70.30 - Alcoholic cirrhosis of liver without ascites (4) H/O heart artery stent Assessment/Plan: -will need to follow up with general passenger agent about aspirin and plavix -will hold secondary to thrombocytopenia Code(s): Z95.5 - PRESENCE OF CORONARY ANGIOPLASTY IMPLANT AND GRAFT (5) Thrombocytopenia Assessment/Plan: -secondary to liver disease -currently not bleeding Code(s): D69.6 - THROMBOCYTOPENIA, UNSPECIFIED
[2019-01-06] MEDS: INSULIN SLIDING SCALE (NOVOLOG) 1 VIAL SQ SCH ×2 (06:32→11:27)
[2019-01-06 07:26] LABS: ALBUMIN 2.8 g/dl (3.4-5.0); BILIRUBIN,DIRECT 0.9 mg/dL (0.0-0.2); BILIRUBIN,TOTAL 3.1 mg/dL (0.2-1)
[2019-01-06] MEDS: LACTULOSE 20 GM/30 ML UDC (FOR ORAL USE ONLY) PO SCH ×2 (07:35→13:05)
[2019-01-06 08:38] LABS: INR 1.37 (0.83-1.09); PROTHROMBIN TIME (PATIENT) 16.2 SEC (9.7-13.0)
[2019-01-06 08:54] VITALS: BP 148/88; PULSE 67; TEMP 98.2
[2019-01-06 09:06] LABS: BASO % 0.8 % (0-2.0); EOS % 2.2 % (0-4.5); HEMATOCRIT 38.1 % (35.4-49); HEMOGLOBIN 13.4 GM/dL (11.7-16.9); LYMPH % 33.1 % (8-40); MCH 35.5 pg (25.7-33.7); MCHC 35.3 g/dl (32.0-35.9); MEAN CELL VOLUME 100.4 fl (80-96); MEAN PLT VOLUME 8.7 fl (7.5-11.1); MONO % 9.9 % (3.8-10.2); PLATELET COUNT 44 K/MM3 (134-434); RBC 3.79 M/mm3 (4.00-5.60); WHITE BLOOD COUNT 2.9 K/mm3 (4.0-10.0)
--- NOTE | 2019-01-06 09:18 | PN ---
Physical Exam: SUBJECTIVE: Patient seen and examined OBJECTIVE: Vital Signs Period Temp Pulse Resp BP Sys/Argueta Pulse Ox Last 24 Hr 98.0 F-98.5 F 65-74 18-20 145-160/78-92 99 GENERAL: The patient is awake, alert, and fully oriented, in no acute distress. HEAD: Normal with no signs of trauma. EYES: PERRL, extraocular movements intact, sclera anicteric, conjunctiva clear. No ptosis. ENT: Ears normal, nares patent, oropharynx clear without exudates, moist mucous membranes. NECK: Trachea midline, full range of motion, supple. LUNGS: Breath sounds equal, clear to auscultation bilaterally, no wheezes, no crackles, no accessory muscle use. HEART: Regular rate and rhythm, S1, S2 without murmur, rub or gallop. ABDOMEN: Soft, nontender, nondistended, normoactive bowel sounds, no guarding, no rebound, no hepatosplenomegaly, no masses. EXTREMITIES: 2+ pulses, warm, well-perfused, no edema. NEUROLOGICAL: Cranial nerves II through XII grossly intact. Normal speech, gait not observed. PSYCH: Normal mood, normal affect. SKIN: Warm, dry, normal turgor, no rashes or lesions noted Laboratory Results - last 24 hr 01/05/19 01/05/19 01/05/19 07:00 11:08 16:38 PT with INR INR POC Glucometer 295 278 Total Bilirubin Direct Bilirubin AST ALT Alkaline Phosphatase Creatine Kinase Index 0.3 CK-MB (CK-2) < 1.0 Total Protein Albumin 01/06/19 01/06/19 01/06/19 05:50 06:30 06:30 PT with INR 16.20 H INR 1.37 H POC Glucometer 193 Total Bilirubin 3.1 H Direct Bilirubin 0.9 H AST 77 H ALT 51 Alkaline Phosphatase 212 H Creatine Kinase Index CK-MB (CK-2) Total Protein 7.0 Albumin 2.8 L Active Medications Generic Name Dose Route Start Last Admin Trade Name Freq PRN Reason Stop Dose Admin Carvedilol 25 mg 01/04/19 22:00 01/05/19 21:34 Coreg - PO 25 mg BID DIEGO Administration Insulin Aspart 1 vial 01/04/19 22:00 01/06/19 06:32 Novolog Vial Sliding Scale - SQ 2 units ACHS DIEGO Administration Protocol Insulin Detemir 10 units 01/04/19 22:00 01/05/19 21:34 Levemir Vial SQ 10 units BID DIEGO Administration Lactulose 20 gm 01/04/19 22:00 01/06/19 07:35 Cephulac (Oral Use) PO Not Given TID DIEGO Pantoprazole Sodium 40 mg 01/04/19 18:00 01/05/19 10:05 Protonix Iv IVPUSH 40 mg DAILY DIEGO Administration ASSESSMENT/PLAN: ATTENDING PHYSICIAN STATEMENT I saw and evaluated the patient. I reviewed the resident's note and discussed the case with the resident. I agree with the resident's findings and plan as documented. SUBJECTIVE: OBJECTIVE: ASSESSMENT AND PLAN:
[2019-01-06 09:19] LABS: BLOOD UREA NITROGEN 8.3 mg/dL (7-18); CALCIUM 8.2 mg/dL (8.5-10.1); CREATININE 0.8 mg/dL (0.55-1.3); MAGNESIUM 1.7 mg/dL (1.8-2.4); PHOSPHOROUS 2.5 mg/dL (2.5-4.9); POTASSIUM 3.8 mmol/L (3.5-5.1)
[2019-01-06] MEDS: INSULIN (LEVEMIR) 100 UNITS/ML UNITS SQ SCH (09:53)
[2019-01-06] MEDS: CARVEDILOL 25 MG TABLET (FP) PO SCH (09:53)
[2019-01-06] MEDS: PANTOPRAZOLE SODIUM 40 MG VIAL IVPUSH SCH (09:54)
[2019-01-06] MEDS ORDERED: INSULIN (LEVEMIR) 100 UNITS/ML UNITS SQ ONE (10:15)
[2019-01-06] MEDS ORDERED: MAGNESIUM OXIDE 400 MG TABLET (FP) PO ONE (11:15)
--- NOTE | 2019-01-06 15:31 | PN ---
Teaching Attending Note Name of Resident: Melissa Novoa ATTENDING PHYSICIAN STATEMENT I saw and evaluated the patient. I reviewed the resident's note and discussed the case with the resident. I agree with the resident's findings and plan as documented. Please refer to discharge summary but in short Mr Tolliver was admitted for hepatic encephalopathy. He was started on lactulose and this resolved. He is currently at his baseline and tolerating a diet. Appreciate GI assistance. There was some confusion on his medications, it was clarified he does not take aspirin and plavix. He was on coreg in the past but stopped taking this as well , since he also has esophageal varices this was changed to nadolol. He is safe for discharge home. Problem List - Problems (1) Hepatic encephalopathy Code(s): K72.90 - HEPATIC FAILURE, UNSPECIFIED WITHOUT COMA (2) Alcohol dependence Code(s): F10.20 - ALCOHOL DEPENDENCE, UNCOMPLICATED (3) Liver cirrhosis Code(s): K74.60 - UNSPECIFIED CIRRHOSIS OF LIVER Qualifiers: Hepatic cirrhosis type: alcoholic cirrhosis Ascites presence: unspecified Qualified Code(s): K70.30 - Alcoholic cirrhosis of liver without ascites (4) H/O heart artery stent Code(s): Z95.5 - PRESENCE OF CORONARY ANGIOPLASTY IMPLANT AND GRAFT (5) Thrombocytopenia Code(s): D69.6 - THROMBOCYTOPENIA, UNSPECIFIED
--- NOTE | 2019-01-06 16:32 | DS ---
Physical Exam: SUBJECTIVE: Patient seen and examined. Has been passing stool. No more tremors or abdominal pain. No chest pain or shortness of breath. No fever or nausea. Tolerating food OBJECTIVE: Vital Signs Period Temp Pulse Resp BP Sys/Argueta Pulse Ox Last 24 Hr 98.0 F-98.3 F 65-74 18-20 148-160/87-92 97-99 PHYSICAL EXAM GENERAL: The patient is awake, alert, and fully oriented, in no acute distress. EYES: PERRL, extraocular movements intact ENT: moist mucous membranes. LUNGS: Breath sounds equal, clear to auscultation bilaterally, no wheezes, no crackles HEART: Regular rate and rhythm, S1, S2 ABDOMEN: Soft, nontender, nondistended, normoactive bowel sounds EXTREMITIES: 2+ pulses, warm, well-perfused, no edema. NEUROLOGICAL: Cranial nerves II through XII grossly intact. Normal speech, gait not observed. PSYCH: Normal mood, normal affect. LABS Laboratory Results - last 24 hr 01/05/19 01/06/19 01/06/19 16:38 05:50 06:30 WBC RBC Hgb Hct MCV MCH MCHC RDW Plt Count MPV Absolute Neuts (auto) Neutrophils % Lymphocytes % Monocytes % Eosinophils % Basophils % Nucleated RBC % PT with INR 16.20 H INR 1.37 H Sodium Potassium Chloride Carbon Dioxide Anion Gap BUN Creatinine Est GFR (CKD-EPI)AfAm Est GFR (CKD-EPI)NonAf POC Glucometer 278 193 Random Glucose Calcium Phosphorus Magnesium Total Bilirubin Direct Bilirubin AST ALT Alkaline Phosphatase Total Protein Albumin 01/06/19 01/06/19 01/06/19 06:30 06:30 11:18 WBC 2.9 L RBC 3.79 L Hgb 13.4 Hct 38.1 MCV 100.4 H MCH 35.5 H MCHC 35.3 RDW 15.0 Plt Count 44 L MPV 8.7 Absolute Neuts (auto) 1.5 Neutrophils % 54.0 Lymphocytes % 33.1 Monocytes % 9.9 Eosinophils % 2.2 Basophils % 0.8 Nucleated RBC % 0 PT with INR INR Sodium 139 Potassium 3.8 Chloride 109 H Carbon Dioxide 23 Anion Gap 8 BUN 8.3 Creatinine 0.8 Est GFR (CKD-EPI)AfAm 107.13 Est GFR (CKD-EPI)NonAf 92.44 POC Glucometer 349 Random Glucose 195 H Calcium 8.2 L Phosphorus 2.5 Magnesium 1.7 L Total Bilirubin 3.1 H Direct Bilirubin 0.9 H AST 77 H ALT 51 Alkaline Phosphatase 212 H Total Protein 7.0 Albumin 2.8 L Ambulatory Orders Insulin (Levemir) [Levemir Flexpen -] 35 units SQ HS 05/25/17 Insulin (Levemir) [Levemir Flexpen -] 30 units SQ DAILY 05/26/17 Lactulose (Oral Use) [Cephulac -] 20 gm PO TID #180 gm 01/06/19 Nadolol 40 mg PO DAILY #30 tablet 01/06/[address] 01/03/19: No acute pathology CTAP 01/04/19: Findings consistent with cirrhosis (small size liver, irregular and hypodense, consistent with advanced hepatocellular disease. Enlarged spleen with serpiginous vascular structures throughout, the upper abdomen consistent with varices). No pancreatitis or acute pathol in abdomen/pelvis. Nuclear stress test 05/2018: No ischemic EKG changes noted during peak lexiscan stress test. Moderate severity reversable ischemia in the inferior wall with a calculated LVEF of 66% HOSPITAL COURSE: Date of Admission:01/04/19 Date of Discharge: 01/06/19 Pt is a 68 yo M with PMHx of CAD s/p stents, HTN, DM, HLD, cirrhosis with varices, alcohol use disorder presenting from home with a hx of abdominal pain, nausea, AMS for past 4 days, presented a day earlier, improved on lactulose, and signed out AMA, now presenting again for worsening symptoms. Pt was admitted for Acute on chronic decompensated hepatic encephalopathy. Pt was seen by GI who noted pt on antiplatelet therapy requiring further investigation. Pt was thought to be on dual ASA/Plavix therapy s/p CAD with stents 2004, but confirmed pt had not been compliant on medications and had not used the antiplatelet therapy in a while. He was encouraged to follow up with his outpt GI for possible EGD as prior EGD had shown mild varices. Pt was counselled on abstinence from alcohol . He was placed on lactulose and nadolol, to continue his DM treatment on levemir. Options were provided for follow up with [facility] # [phone] Chapman Betty [place] on 13 of January ( prior appointment). Minutes to complete discharge: 40 Discharge Summary Reason For Visit: HEPATIC CIRRHOSIS Condition: Improved - Instructions Diet, Activity, Other Instructions: You came in with increased drowsiness and tremors after drinking heavily You were given medications to help you pass stool and excrete the poisons from alcohol and you now feel better We recommend you stop drinking alcohol completely as you have damage to your liver and blood vessels as a result of alcohol Medications We are sending you home on lactulose- take one three times a day to have daily bowel movements We are adding nadolol to protect you from the risk of bleeds from your esophagus We are sending you home on insulin flexpen that you were prescribed earlier- take 35u and 30units Avoid medications that can worsen the liver damage or increase a risk for bleed such as tylenol or medications like ibuprofen Follow ups Follow up with your sales order coordinator (stomach doctor) for another endoscopy as the prior one showed damage to blood vessels in you esophagus Follow up with your primary care doctor in a week's time If you feel your symptoms are not getting better, with vomiting blood or passing bloody stool, fevers , worsening abdominal swelling and pain, please go to the nearest emergency department Referrals: Javed Contreras MD [Staff Physician] - Disposition: HOME - Home Medications Comprehensive Discharge Medication List: Ambulatory Orders Insulin (Levemir) [Levemir Flexpen -] 35 units SQ HS 05/25/17 Insulin (Levemir) [Levemir Flexpen -] 30 units SQ DAILY 05/26/17 Lactulose (Oral Use) [Cephulac -] 20 gm PO TID #180 gm 01/06/19 Nadolol 40 mg PO DAILY #30 tablet 01/06/19 This patient is new to me today: No Emergency Visit: Yes ED Registration Date: 01/04/19 Care time: The patient presented to the Emergency Department on the above date and was hospitalized for further evaluation of their emergent condition. Critical Care patient: No - Discharge Referral Referred to [facility] No ATTENDING PHYSICIAN STATEMENT I saw and evaluated the patient. I reviewed the resident's note and discussed the case with the resident. I agree with the resident's findings and plan as documented. SUBJECTIVE: OBJECTIVE: ASSESSMENT AND PLAN:
[2019-01-09 11:21] LABS: HEP A AB, IGM Negative (Negative); HEP B CORE AB, TOT Positive (Negative)
== END 2019-01-06 15:16 | disposition home or self-care (01) | DRG 433 ==
LOC: JER 09:06 → JERBED 16:58 → J5S 18:56
PROVIDERS: ADMIT Hospitalist; ATTEND Internal Medicine
DX: K70.30 Alcoholic cirrhosis of liver without ascites (principal); E72.4 Disorders of ornithine metabolism; I85.10 Secondary esophageal varices without bleeding; D61.818 Other pancytopenia; D69.59 Other secondary thrombocytopenia; D72.819 Decreased white blood cell count, unspecified; K72.90 Hepatic failure, unspecified without coma; E83.42 Hypomagnesemia; E83.39 Other disorders of phosphorus metabolism; E88.09 Other disorders of plasma-protein metabolism, not elsewhere classified; K29.20 Alcoholic gastritis without bleeding; F10.20 Alcohol dependence, uncomplicated; I11.0 Hypertensive heart disease with heart failure; E11.9 Type 2 diabetes mellitus without complications; I25.10 Atherosclerotic heart disease of native coronary artery without angina pectoris; Z95.5 Presence of coronary angioplasty implant and graft; Z79.4 Long term (current) use of insulin; Z79.84 Long term (current) use of oral hypoglycemic drugs; R94.5 Abnormal results of liver function studies
CPT/HCPCS: 36415; 70450-TC; 71045-TC-FY; 71046-TC-FY; 74177-TC; 76705-TC; 80053; 80076; 80307; 81003; 82009; 82105; 82140; 82272; 82550; 82553; 82803; 82962; 83690; 83735; 84100; 84484; 85025; 85610; 85730; 86704; 86706; 86707; 86708; 86709; 87086; 87340; 87522; 93005; 93010; 96361; 96374; 99283-25; J7030

== ENCOUNTER 2019-06-04 20:49 | Inpatient (IN) | payer OTHER, BC ==
[2019-06-04] MEDS ORDERED: SODIUM CHLORIDE 0.9% 500 ML INFUS.BAG IV ONE (21:30)
--- NOTE | 2019-06-04 21:35 | PDOC ---
History of Present Illness - General Chief Complaint: Chest Pain Stated Complaint: VOMITTING - History of Present Illness Initial Comments: 06/04/19 22:30 68y/o M hx of CAD s/p stents, HTN, HLD, DM. HLD, cirrhosis with varices, alchohol use disorder presenting to the ER with chest pain. pt was here yesterday for a similiacr complaint was tachycardic and hypertensive, with elevated alcohol and ammonia other lab work and and CT head were negative incl including troponin. was sent back home with alert, oriented and stable - this time hidiana presents with chest pain that he reports started at 4pm is 10/10 , reproducible and constant. Non-radiatin, pt denies any recent alcohol use but disagrees. presents confusing timelines not a reliable historian. He endorses nausea, tremulousness. He denies vomiting, pleuritic chest pain,diaphoresis, hx of clots. trauma, fevers, chills, diarrhea, hemoptysis. 06/04/19 22:33 Past History - Past Medical History Allergies/Adverse Reactions: Allergies Allergy/AdvReac Type Severity Reaction Status Date / Time No Known Allergies Allergy Verified 06/04/19 20:53 Home Medications: Ambulatory Orders Insulin (Levemir) [Levemir Flexpen -] 35 units SQ HS 05/25/17 Insulin (Levemir) [Levemir Flexpen -] 50 units SQ BID 05/26/17 Lactulose (Oral Use) [Cephulac -] 20 gm PO TID #180 gm 01/06/19 Nadolol 40 mg PO DAILY 06/05/19 Anemia: No Asthma: No Cancer: No Cardiac Disorders: Yes (cad, 2 stents) CVA: No COPD: No CHF: No Dementia: No Diabetes: Yes GI Disorders: No Disorders: No HTN: Yes Hypercholesterolemia: Yes Liver Disease: No Seizures: No Thyroid Disease: No - Surgical History Abdominal Surgery: No Appendectomy: No Cardiac Surgery: Yes (card stent) Cholecystectomy: No Lung Surgery: No Neurologic Surgery: No Orthopedic Surgery: No - Immunization History Td Vaccination: Yes Immunization Up to Date: Yes - Psycho Social/Smoking Cessation Hx Smoking Status: No Smoking History: Never smoked Have you smoked in the past 12 months: No Number of Cigarettes Smoked Daily: 10 Hx Alcohol Use: Yes Drug/Substance Use Hx: No Substance Use Type: Alcohol Hx Substance Use Treatment: No Review of Systems - Review of Systems Constitutional: No: Chills, Fever HEENTM: No: Eye Pain, Blurred Vision Respiratory: Yes: Shortness of Breath. No: Cough Cardiac (ROS): Yes: Chest Pain. No: Lightheadedness ABD/GI: Yes: Nausea. No: Vomiting : No: Burning, Dysuria Musculoskeletal: No: Back Pain, Joint Pain Neurological: No: Headache, Numbness Hematologic/Lymphatic: No: Anemia, Blood Clots *Physical Exam - Vital Signs Last Vital Signs Temp Pulse Resp BP Pulse Ox 97.6 F 132 H 24 H 188/101 H 97 06/04/19 20:51 06/04/19 20:51 06/04/19 20:51 06/04/19 20:51 06/04/19 20:51 - Physical Exam 06/05/19 00:25 PE: GENERAL: Awake, alert, and fully oriented, in no acute distress HEAD: No signs of trauma, normocephalic, atraumatic EYES: PERRLA, EOMI, sclera anicteric, conjunctiva clear ENT: Auricles normal inspection, hearing grossly normal, nares patent, oropharynx clear without exudates. Moist mucosa. tongue fasiculations NECK: Normal ROM, supple, no lymphadenopathy, JVD, or masses LUNGS: No distress, speaks full sentences, clear to auscultation bilaterally HEART: Regular rate and rhythm, normal S1 and S2, no murmurs, rubs or gallops, peripheral pulses normal and equal bilaterally. ABDOMEN: Soft, nontender, normoactive bowel sounds. No guarding, no rebound. No masses EXTREMITIES : Normal inspection, tremors when both upper extremities outstretch ed. NEUROLOGICAL: Cranial nerves II through XII grossly intact. Normal speech, no focal sensorimotor deficits SKIN: Warm, Dry, normal turgor, no rashes or lesions noted ED Treatment Course - LABORATORY CBC & Chemistry Diagram: 06/07/19 07:38 06/07/19 07:38 Medical Decision Making - Medical Decision Making 06/04/19 22:34 68y/o M hx of CAD s/p stents, HTN, HLD, DM. HLD, cirrhosis with varices, alchohol use disorder presenting to the ER with chest pain. ekg, labs, ammonia, troponin, Meds: valium, fluids, banana bag. 06/04/19 23:52 Pt reassesed after librium, and valium currently asleep but arousable some persisting tremor and tongue fasiculations Microblogged for admission. Discharge - Discharge Information Problems reviewed: Yes Clinical Impression/Diagnosis: Alcohol withdrawal Qualifiers: Complication of substance-induced condition: uncomplicated Qualified Code(s): F10.230 - Alcohol dependence with withdrawal, uncomplicated Condition: Improved Disposition: AGAINST MEDICAL ADVICE - Follow up/Referral - Patient Discharge Instructions - Post Discharge Activity
[2019-06-04] MEDS ORDERED: FOLIC ACID INJECTION - 1 MG, THIAMINE HCL 100 MG, MULTIVIT INJECTION ADULT 10 ML in SOD... IVPB ONE (21:41)
[2019-06-04] MEDS ORDERED: FAMOTIDINE 20 MG/50 ML IVPB 20 MG/50 ML MG IVPB ONE (21:45)
[2019-06-04] MEDS ORDERED: diazePAM CARPU-JECT 10 MG/2 ML DISP.SYRIN IVPUSH ONE (21:49)
[2019-06-04] MEDS ORDERED: diazePAM CARPU-JECT 10 MG/2 ML DISP.SYRIN ONE (21:51)
[2019-06-04 22:20] LABS: BASO % 0.3 % (0-2.0); EOS % 0.2 % (0-4.5); HEMATOCRIT 37.8 % (35.4-49); HEMOGLOBIN 13.4 GM/dL (11.7-16.9); LYMPH % 11.3 % (8-40); MCH 36.7 pg (25.7-33.7); MCHC 35.4 g/dl (32.0-35.9); MEAN CELL VOLUME 103.8 fl (80-96); MEAN PLT VOLUME 8.5 fl (7.5-11.1); MONO % 7.9 % (3.8-10.2); NEUT % 80.3 % (42.8-82.8); PLATELET COUNT 46 K/MM3 (134-434); RBC 3.64 M/mm3 (4.00-5.60); RDW 14.2 % (11.9-15.9); WHITE BLOOD COUNT 3.1 K/mm3 (4.0-10.0)
[2019-06-04 22:32] LABS: INR 1.3 (0.83-1.09); PROTHROMBIN TIME (PATIENT) 15.4 SEC (9.7-13.0)
[2019-06-04 22:35] LABS: ACTIVATED PTT 35.7 SECONDS (25.2-36.5)
--- NOTE | 2019-06-04 22:47 | PDOC ---
Documentation entered by Giovanny Paul SCRIBE, acting as scribe for Luciana Valdez MD. Luciana Valdez MD: This documentation has been prepared by the Humberto galvez Xhesika, SCRIBE, under my direction and personally reviewed by me in its entirety. I confirm that the documentation accurately reflects all work, treatment, procedures, and medical decision making performed by me. Attending Attestation - Resident Resident Name: [email or web address] - ED Attending Attestation I have performed the following: I have examined & evaluated the patient, The case was reviewed & discussed with the resident, I agree w/resident's findings & plan, Exceptions are as noted - HPI HPI: 06/04/19 22:03 The patient is a 68 year old male with a significant PMH of CAD s/p stents, HTN , DM, HLD, cirrhosis with varices, and ETOH abuse who presents to the emergency department for 3 days of chest pain. Pt was seen here in the ED this morning for exact symptoms, both troponin's were negative and pt was d/c home. Pt denies drinking alcohol, however, pt alcohol level from this morning was in the 290s. Patient describes the chest pain as sharp, pressure, non radiating, localized in the left chest wall. Pt denies any aggravating or relieving factors. Pt kept complaining of chest pain at home, so at bedside brought him back. Pt denies SOB, fevers, coughs, chills, nausea/vomiting/diarrhea, abdominal pain. Denies dysuria, frequency, urgency and hematuria. Allergies: NKDA - Physicial Exam PE: 06/04/19 21:35 GENERAL: The patient is in no acute distress. ENT: Ears normal, nares patent, oropharynx clear without exudates. Dry mucous membranes. Tongue fasciculations NECK: Normal range of motion, supple LUNGS: Breath sounds equal, clear to auscultation bilaterally. No wheezes, and no crackles. HEART:Regular rate and rhythm, normal S1 and S2 without murmur, rub or gallop. ABDOMEN: Soft, nontender, normoactive bowel sounds. EXTREMITIES: Normal range of motion, (+) upper extremity tremulousness NEUROLOGICAL: Cranial nerves II through XII grossly intact. Normal speech. No focal neurological deficits. SKIN: Warm, Dry, normal turgor, no rashes or lesions noted. 06/04/19 21:43 - Medical Decision Making 06/04/19 21:35 EKG: Sinus tachycardia, rate of 122 bpm, axis equal left axis deviation, nonspecific intraventricular conduction delay T waves are upright 06/04/19 21:44 68 yo M presenting with chest pain and tremulousness Pt denies recent ER visit for chest pain (trop neg x 2, alcohol level 290) Pt appears to be in alcohol withdrawal He is currently not admitting to alcohol use/abuse 06/04/19 21:46 Will do: Labs EKG CXR Benzodiazepines Admit 06/04/19 22:47 Laboratory Tests 06/04/19 06/04/19 06/04/19 22:01 22:10 22:10 WBC 3.1 L Hgb 13.4 Hct 37.8 Plt Count 46 L PT with INR 15.40 H INR 1.30 H PTT (Actin FS) 35.7 Ammonia 63.00 H 06/04/19 22:58 Pt re assessed: He is resting tremor still present less prominent, decreased tongue fasciculations HR 110 Will order Librium 50mg po 06/04/19 23:17 Pt sleeping Librium not ordered Laboratory Tests 06/04/19 06/04/19 06/04/19 04:08 04:08 22:01 BUN Creatinine Total Bilirubin 1.7 H AST 85 H Alkaline Phosphatase 280 H Ammonia 63.00 H Troponin I < 0.02 B-Natriuretic Peptide Total Protein Albumin Alcohol, Quantitative 06/04/19 06/04/19 06/04/19 22:10 22:10 22:10 BUN 8.0 Creatinine 0.7 Total Bilirubin 3.3 H AST 88 H Alkaline Phosphatase 253 H Ammonia Troponin I < 0.02 B-Natriuretic Peptide 15.9 Total Protein 6.9 Albumin 2.8 L Alcohol, Quantitative 19.9 H 06/04/19 23:29 CXR- no acute findings 06/04/19 23:33 Pt re assessed Sleeping comfortably HR: 103 Clinical impression: Alcohol withdrawal, initial presentation Alcohol abuse, initial presentation Chest pain, repeat presentation Cirrhosis, initial presentation
[2019-06-04] MEDS ORDERED: chlordiazePOXIDE HCL 25 MG CAPSULE PO ONE (22:56)
[2019-06-04 22:58] LABS: ALBUMIN 2.8 g/dl (3.4-5.0); BILIRUBIN,TOTAL 3.3 mg/dL (0.2-1); CALCIUM 8.7 mg/dL (8.5-10.1); CREATININE 0.7 mg/dL (0.55-1.3); N-TERMINAL BNP 15.9 pg/ml (5-125); POTASSIUM 3.6 mmol/L (3.5-5.1); TOT PROT 6.9 g/dl (6.4-8.2)
--- NOTE | 2019-06-05 00:22 | PN ---
Teaching Attending Note Name of Resident: Cuong Coburn ATTENDING PHYSICIAN STATEMENT I saw and evaluated the patient. I reviewed the resident's note and discussed the case with the resident. I agree with the resident's findings and plan as documented. SUBJECTIVE: Patient is a 68 year old man with PMH of CAD s/p stents, HTN, HLD, NIDDM, HLD, Cirrhosis with varices and Alcohol use disorder presenting to the ER with chest pain. Patient was in the ER yesterday for a similar complaint and was tachycardic and hypertensive. Was also noted to have high blood alcohol and ammonia levels. Head CT, troponin and EKG were negative and he was discharged home with alert, oriented and stable. This time he presents with chest pain that he reports started at 4pm, is 10/10, reproducible, constant and nonradiating. Patient has nausea and tremulousness. He denies vomiting, pleuritic chest pain, diaphoresis, history of VTE, trauma, fevers, chills, diarrhea or hemoptysis. Denies tobacco or illicit drug use. No recent travel or sick contacts. OBJECTIVE: Alert Vital Signs Period Temp Pulse Resp BP Sys/Argueta Pulse Ox Last 24 Hr 97.6 F-98.1 F 92-132 16-24 143-188/87-101 96-97 HEENT: No Jaundice, eye redness or discharge, PERRLA, EOMI. Normocephalic, atraumatic. External ears are normal and hearing is grossly intact. No nasal discharge. Neck: Supple, nontender. No palpable adenopathy or thyromegaly. No JVD Chest: Good effort. Clear to auscultation and percussion. Heart: Regular. No S3, rub or murmur Abdomen: Not distended, soft, nontender and no HSM. No rebound or guarding. Normal bowel sounds. Ext: Peripheral pulses intact. No leg edema. Skin: Warm and dry. No petechiae, rash or ecchymosis. Neuro: Alert. Oriented x3. Tremulous. No asterexis; CN 2-12 grossly intact. Sensation grossly intact in all four extremities and DTR are symmetric. Psych: Appropriate mood and affect. Good insight. Current Medications Generic Name Dose Route Start Last Admin Trade Name Freq PRN Reason Stop Dose Admin Folic Acid 1 mg/ Thiamine HCl 1,000 mls @ 125 mls/hr 06/04/19 21:41 06/04/19 23:37 100 mg/ Multivitamins/Minerals IVPB 06/05/19 05:40 125 mls/hr 10 ml/ Sodium Chloride ONCE ONE Administration Home Medications Medication Instructions Recorded Insulin (Levemir) [Levemir Flexpen 35 units SQ HS 05/25/17 -] Insulin (Levemir) [Levemir Flexpen 30 units SQ DAILY 05/26/17 -] Lactulose (Oral Use) [Cephulac -] 20 gm PO TID #180 gm 01/06/19 Nadolol 40 mg PO DAILY #30 tablet 01/06/19 Abnormal Lab Results 06/04/19 06/04/19 06/04/19 22:01 22:10 22:10 WBC 3.1 L RBC 3.64 L MCV 103.8 H MCH 36.7 H Plt Count 46 L PT with INR INR Random Glucose Total Bilirubin AST Alkaline Phosphatase Ammonia 63.00 H Albumin Alcohol, Quantitative 19.9 H 06/04/19 06/04/19 22:10 22:10 WBC RBC MCV MCH Plt Count PT with INR 15.40 H INR 1.30 H Random Glucose 244 H Total Bilirubin 3.3 H AST 88 H Alkaline Phosphatase 253 H Ammonia Albumin 2.8 L Alcohol, Quantitative ASSESSMENT AND PLAN: 1. Chest pain - Pain is atypical. Initial troponin is negative and there are no changes of ischemia on his EKG - shows sinus tachycardia, LAD and inferior infarct of undetermined age. Will admit to telemetry to rule out ACS and get ECHO and consult cardiology. CXR shows prominent mediastinum, unfolded aorta but no infiltrates. No acute abnormality on head CT. Leukopenia, thrombocytopenia, macrocytosis, hypomagnesemia, rhabdomyolysis and abnormal LFTs are sequelae of alcoholism/alcoholic liver disease. Monitor platelets daily and trend LFTs. Will monitor and replete elctrolytes; avoid factors that will precipitate hepatic encephalopathy and treat with lactulose and rifaximin. Will continue comprehensive care for all of patients comorbid conditions. 2. Alcohol abuse/withdrawal - Getting banana bag. Will implement CIWA Ativan alcohol withdrawal protocol and do neurochecks. Implement seizure, fall and aspiration precautions. Treat with thiamine and folic acid and monitor electrolytes (Ca,Mg,K,P). Counseled patient about abstaining from alcohol. Will consult medical support specialist and refer to alcohol detox upon discharge. 3. Hypoalbuminemia - Possibly due to combined effects of malnutrition and inflammation associated with comorbid chronic conditions. Will ensure adequate dietary protein intake and also consult adobe architect. 4. Uncontrolled DM For now, we will hold the home diabetes drugs and implement sliding scale insulin regimen. Provide comprehensive diabetes care with patient teaching and counseling about the importance of adherence to prescribed diabetes regimen, euglycemia, eye care and foot care. 5. Hypertension - Restart suitable outpatient antihypertensive drugs when clinically appropriate. Revise regimen to ensure [id number] excellent BP control and rehabilitation services counselor patient on the injurious effects of uncontrolled hypertension. Nonpharmacologic measures to control hypertension like weight loss , salt restriction and exercise discussed. Importance of adherence to treatment regimen and attainment of normotension emphasized. 6. DVT prophylaxis - Early ambulation for now; platelets too low to use heparin or SCD. 7. Advance directives - Full code
--- NOTE | 2019-06-05 02:27 | HP ---
CHIEF COMPLAINT: chest pain and weakness PCP: Dr. Damián Hameed ([place]) HISTORY OF PRESENT ILLNESS: Jeremi Tolliver is a 68 year old male with a past medical history of CAD (s/p 2 stents), HTN, HLD, DM, cirrhosis with varices, alcohol use disorder who presented with chest pain of 2 day duration. Patient was previously seen in the ED less than 1 day prior for similar symptoms at which time the patient was also tachycardic and hypertensive. The patient at the time wanted to sign out AMA and left the ED in stable condition. Patient now presented with similar symptoms but was increasingly weak and lethargic. He noted that the chest pain started 2 days prior, is intermittent, encompases the left side of his chest with radiation to the shoulder, arm, abdomen. Endorses numbness, tingling of the arm and face, nausea with dry heaves, mild shortness of breath. At its worst , the chest pain is rated 10/10, at the time of interview was 9/10. Denied alleviating or remitting factors. Denied worsening of pain with food or exercise. Denied inciting factors of pain at the time of first presentation. Endorses a non-productive cough. Patient denies recent sick contacts, travel, illnesses. Denies symptoms of fever, chills, dysuria, hematuria, diarrhea, constipation, focal weakness, visual changes, headaches. Patient denies alcohol use today. Denies history of seizures or DTs. Arriving from home. On previous visit less than 24 hours prior patient had elevated alcohol level. Patient asking for a medicine to make him stop having numbness which will make him feel better. 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 Allergies No Known Allergies Allergy (Verified 06/04/19 20:53) HOME MEDICATIONS: Home Medications Medication Instructions Recorded Insulin (Levemir) [Levemir Flexpen 35 units SQ HS 05/25/17 -] Insulin (Levemir) [Levemir Flexpen 30 units SQ DAILY 05/26/17 -] Lactulose (Oral Use) [Cephulac -] 20 gm PO TID #180 gm 01/06/19 Nadolol 40 mg PO DAILY #30 tablet 01/06/19 REVIEW OF SYSTEMS CONSTITUTIONAL: generalized weakness, malaise, loss of appetite Absent: fever, chills, diaphoresis, weight change HEENT: Absent: rhinorrhea, nasal congestion, throat pain, throat swelling, difficulty swallowing, eye pain, visual changes CARDIOVASCULAR: chest pain, lightheadedness Absent: syncope, palpitations, irregular heart rate, peripheral edema RESPIRATORY: cough, shortness of breath Absent: dyspnea with exertion, orthopnea, wheezing, stridor, hemoptysis GASTROINTESTINAL: abdominal pain, nausea, vomiting Absent: abdominal distension, diarrhea, constipation, melena, hematochezia GENITOURINARY: Absent: dysuria, frequency, urgency, hesitancy, hematuria, MUSCULOSKELETAL: Absent: myalgia, arthralgia, joint swelling, back pain, neck pain SKIN: Absent: rash, itching, pallor HEMATOLOGIC/IMMUNOLOGIC: Absent: easy bleeding, easy bruising, lymphadenopathy, frequent infections ENDOCRINE: Absent: unexplained weight gain, unexplained weight loss, heat intolerance, cold intolerance NEUROLOGIC: Absent: headache, focal weakness or paresthesias, dizziness, unsteady gait, seizure, mental status changes, bladder or bowel incontinence PSYCHIATRIC: Absent: anxiety, depression, suicidal or homicidal ideation, hallucinations. PHYSICAL EXAMINATION Vital Signs - 24 hr 06/04/19 06/04/19 06/04/19 20:51 20:53 22:53 Temperature 97.6 F 98.1 F Pulse Rate 132 H Pulse Rate [ 92 H Left Radial] Respiratory 24 H 16 Rate Blood Pressure 188/101 H Blood Pressure 143/87 [Left Arm] O2 Sat by Pulse 97 96 96 Oximetry (%) 06/05/19 01:08 Temperature 97.9 F Pulse Rate Pulse Rate [ 106 H Left Radial] Respiratory 18 Rate Blood Pressure Blood Pressure 161/97 [Left Arm] O2 Sat by Pulse 98 Oximetry (%) GENERAL: Awake, alert, and fully oriented, in moderate acute distress. Tremulous , anxious. HEAD: Normal with no signs of trauma. EYES: Pupils equal, round and reactive to light, extraocular movements intact, mild scleral icterus. EARS, NOSE, THROAT: Oropharynx clear without exudates. Moist mucous membranes. NECK: Normal range of motion, supple without lymphadenopathy, JVD. LUNGS: Breath sounds equal, clear to auscultation bilaterally. No wheezes, and no crackles. No accessory muscle use. HEART: Tachycardic rate and regular rhythm, normal S1 and S2 without murmur, rub. ABDOMEN: Soft, nontender, mildly distended, normoactive bowel sounds, no guarding, no rebound, no masses. No fluid wave. MUSCULOSKELETAL: Normal range of motion at all joints. No bony deformities or tenderness. No CVA tenderness. UPPER EXTREMITIES: 2+ pulses, warm, well-perfused. No cyanosis. No clubbing. No peripheral edema. LOWER EXTREMITIES: 2+ pulses, warm, well-perfused. No calf tenderness. No peripheral edema. NEUROLOGICAL: Cranial nerves II-XII intact. 4/5 muscle strength throughout upper and lower extremities bilaterally. PSYCHIATRIC: Good eye contact. Poor insight into medical condition. SKIN: Warm, moist, normal turgor, no rashes or lesions noted, normal capillary refill. Laboratory Results - last 24 hr 06/04/19 06/04/19 06/04/19 22:01 22:10 22:10 WBC 3.1 L RBC 3.64 L Hgb 13.4 Hct 37.8 MCV 103.8 H MCH 36.7 H MCHC 35.4 RDW 14.2 Plt Count 46 L MPV 8.5 Absolute Neuts (auto) 2.4 Neutrophils % 80.3 D Lymphocytes % 11.3 D Monocytes % 7.9 Eosinophils % 0.2 D Basophils % 0.3 Nucleated RBC % 0 PT with INR INR PTT (Actin FS) Sodium Potassium Chloride Carbon Dioxide Anion Gap BUN Creatinine Est GFR (CKD-EPI)AfAm Est GFR (CKD-EPI)NonAf POC Glucometer Random Glucose Calcium Total Bilirubin AST ALT Alkaline Phosphatase Ammonia 63.00 H Troponin I B-Natriuretic Peptide Total Protein Albumin Alcohol, Quantitative 19.9 H 06/04/19 06/04/19 06/04/19 22:10 22:10 22:10 WBC RBC Hgb Hct MCV MCH MCHC RDW Plt Count MPV Absolute Neuts (auto) Neutrophils % Lymphocytes % Monocytes % Eosinophils % Basophils % Nucleated RBC % PT with INR 15.40 H INR 1.30 H PTT (Actin FS) 35.7 Sodium 137 Potassium 3.6 Chloride 100 Carbon Dioxide 23 Anion Gap 14 BUN 8.0 Creatinine 0.7 Est GFR (CKD-EPI)AfAm 113.18 Est GFR (CKD-EPI)NonAf 97.65 POC Glucometer Random Glucose 244 H Calcium 8.7 Total Bilirubin 3.3 H AST 88 H ALT 52 Alkaline Phosphatase 253 H Ammonia Troponin I < 0.02 B-Natriuretic Peptide 15.9 Total Protein 6.9 Albumin 2.8 L Alcohol, Quantitative 06/05/19 01:44 WBC RBC Hgb Hct MCV MCH MCHC RDW Plt Count MPV Absolute Neuts (auto) Neutrophils % Lymphocytes % Monocytes % Eosinophils % Basophils % Nucleated RBC % PT with INR INR PTT (Actin FS) Sodium Potassium Chloride Carbon Dioxide Anion Gap BUN Creatinine Est GFR (CKD-EPI)AfAm Est GFR (CKD-EPI)NonAf POC Glucometer 216 Random Glucose Calcium Total Bilirubin AST ALT Alkaline Phosphatase Ammonia Troponin I B-Natriuretic Peptide Total Protein Albumin Alcohol, Quantitative EKG--> Sinus tachycardia, age indeterminate inferior infarct, left axis deviation, QTc 481 ASSESSMENT/PLAN: Jeremi Tolliver is a 68 year old male with a past medical history of CAD (s/p 2 stents), HTN, HLD, DM, cirrhosis with varices, alcohol use disorder who presented with chest pain of 2 day duration admitted for alcohol withdrawal and chest pain. Alcohol Withdrawal - CIWA 13 - start Ativan withdrawal protocol in setting of patient's cirrhosis diagnosis - seizure, fall, dysphagia precautions, NPO for now until nausea improves - neurochecks - consult addiction medicine - banana bag given - supplement thiamine, folate, MVI, magnesium - hydrate LR at 75cc/hr - compazine for nausea, avoid QTc prolonging agents - earlier CT head with no acute pathology Chest Pain - EKG showing sinus tach, age indeterminate inferior infarct, no acute ST changes - troponins x1 negative, repeat in AM - repeat AM EKG - echo - cardiology consulted - NPO for possible stress test, unlikely given withdrawal symptoms, maintain NPO due to nausea - CXR showing no acute pathology Hx of cirrhosis - lactulose 20gm PO tid - rifaximin 550mg tid - LR @ 75cc/hr to maintain adequate hydration in setting of patient's poor oral intake and lactulose administration - monitor volume status - neurochecks - ammonia 63, patient not AOx3, not appearing to be in hepatic encephalopathy, continue to monitor - 01/05 RUQ US showing atrophic cirrhotic liver - elevated bilirubin, AST, likely in setting of cirrhosis - direct bilirubin ordered for AM DM - hold home meds - BGM - ISS ACHS - NPO for now pending resolution of nausea vomiting Hx of CAD with stents - patient noted he was on Plavix, unable to confirm with pharmacy - currently thrombocytopenic, chronic, restart as per cardiology Thrombocytopenia - Plts 46, chronic - likely in setting of cirrhosis - monitor for bleedings HTN - pharmacy called and noted that patient had last picked up nadalol 30mg daily in December - will restart nadolol 30mg, and adjust as per cardiology FEN - LR at 75cc/hr - continue to monitor electrolytes and replete as necessary - NPO pending resolution of nausea Prophylaxis - avoid chemical AC due to thrombocytopenia, SCDs questionable as they may also cause damage to blood vessels in setting of thrombocytopenia - early ambulation Dispo - admit to telemetry - will need proper med-rec Family Medical History Family History: Denies Visit type - Emergency Visit Emergency Visit: Yes ED Registration Date: 06/05/19 Care time: The patient presented to the Emergency Department on the above date and was hospitalized for further evaluation of their emergent condition. - New Patient This patient is new to me today: Yes Date on this admission: 06/05/19 - Critical Care Critical Care patient: No
[2019-06-05] MEDS ORDERED: MAGNESIUM SULF 50% (8.12 MEQ/2 ML-1 GM VIAL) IVPB ONE ×2 (02:36→18:01)
[2019-06-05] MEDS ORDERED: LORazepam 1 MG TABLET PO PRN (02:40)
[2019-06-05] MEDS ORDERED: PROCHLORPERAZINE INJECTION 10 MG/2 ML VIAL IM PRN (02:44)
[2019-06-05] MEDS: LACTATED RINGERS SOLUTION 1,000 ML/1,000 ML INFUS.BAG IV SCH ×2 (02:46→23:29)
[2019-06-05] MEDS ORDERED: MAGNESIUM 1GM/D5W - 1 GM/100 ML IVPB IVPB ONE ×2 (03:00→18:18)
[2019-06-05] MEDS ORDERED: KETOROLAC TROMETHAMINE 30 MG/1 ML VIAL IVPUSH PRN (03:26)
[2019-06-05] MEDS ORDERED: PT OWN MED DRAWER 7, Y5N ONE (03:36)
[2019-06-05] MEDS ORDERED: KETOROLAC TROMETHAMINE 30 MG/1 ML VIAL ONE (03:49)
[2019-06-05 06:42] LABS: BASO % 0.6 % (0-2.0); EOS % 1.3 % (0-4.5); HEMATOCRIT 33.7 % (35.4-49); HEMOGLOBIN 12.1 GM/dL (11.7-16.9); MCH 36.6 pg (25.7-33.7); MEAN CELL VOLUME 101.7 fl (80-96); MEAN PLT VOLUME 8.8 fl (7.5-11.1); MONO % 10.7 % (3.8-10.2); NEUT % 63.4 % (42.8-82.8); PLATELET COUNT 42 K/MM3 (134-434); RBC 3.31 M/mm3 (4.00-5.60); RDW 14.4 % (11.9-15.9); WHITE BLOOD COUNT 2.4 K/mm3 (4.0-10.0)
[2019-06-05 07:13] LABS: BILIRUBIN,DIRECT 1.2 mg/dL (0.0-0.2)
[2019-06-05 07:19] LABS: ALBUMIN 2.4 g/dl (3.4-5.0); BLOOD UREA NITROGEN 6.7 mg/dL (7-18); CREATININE 0.5 mg/dL (0.55-1.3); MAGNESIUM 1.8 mg/dL (1.8-2.4); POTASSIUM 3.4 mmol/L (3.5-5.1); TOT PROT 6.2 g/dl (6.4-8.2)
[2019-06-05] MEDS ORDERED: LORazepam 0.5 MG TABLET ONE (07:29)
[2019-06-05] MEDS ORDERED: LACTULOSE 20 GM/30 ML UDC (FOR ORAL USE ONLY) ONE (07:29)
[2019-06-05] MEDS: LORazepam 1 MG TABLET PO SCH ×4 (07:35→23:34)
[2019-06-05] MEDS: INSULIN SLIDING SCALE (NOVOLOG) 1 VIAL SQ SCH ×4 (07:35→23:43)
[2019-06-05] MEDS: LACTULOSE 20 GM/30 ML UDC (FOR ORAL USE ONLY) PO SCH ×3 (07:35→23:34)
[2019-06-05] MEDS ORDERED: FOLIC ACID 1 MG TABLET (FP) ONE (07:48)
[2019-06-05] MEDS ORDERED: THIAMINE HCL 100 MG TABLET (FP) ONE (07:48)
[2019-06-05] MEDS: MULTIVITAMINS (DAILY MVI) TABLET (FP) PO SCH (09:56)
[2019-06-05] MEDS: RIFAXIMIN 550 MG TABLET (UD) PO SCH ×2 (09:57→23:35)
[2019-06-05] MEDS: FOLIC ACID 1 MG TABLET (FP) PO SCH (09:57)
[2019-06-05] MEDS ORDERED: THIAMINE HCL 100 MG TABLET (FP) PO SCH (10:00)
[2019-06-05] MEDS: NADOLOL 40 MG TABLET (FP) PO SCH (10:01)
--- NOTE | 2019-06-05 10:21 | CON.CARD ---
Consult Consult Specialty:: Cardiology (Coverage for Dr. Yancey/Dr. Cisneros) Referred by:: Hospitalist Reason for Consultation:: Cardiac evaluation - History of Present Illness Chief Complaint: ETOH intoxication History of Present Illness: Patient is a 68 year old male of [place] with underlying history of CAD s/p PCI/stent, HTN, hypercholesterolemia, DM, liver disease with cirrhosis and varices due to long history of ETOH abuse. He is currently intoxicated and history was obtained from his by bedside. He has been to the hospital in the past and had signed out AMA. This time, he insisted to come to Hospital after drinking several bottles of wine. 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 (AMS after drinking possiple hepatic encephalopathy ) Cardio/Vascular: Yes: CAD Gastrointestinal: Yes: Esophageal Varices Hepatobiliary: Yes: Cirrhosis Endocrine: Yes: Diabetes Mellitus - Past Surgical History Past Surgical History: Yes: None - Alcohol/Substance Use Hx Alcohol Use: Yes History of Substance Use: reports: None - Smoking History Smoking history: Never smoked Have you smoked in the past 12 months: No Aproximately how many cigarettes per day: 10 - Social History Usual Living Arrangement: With Spouse 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, 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9 F 06/05/19 07:16 Pulse Rate 89 06/05/19 07:16 Respiratory Rate 17 06/05/19 07:16 Blood Pressure 154/90 06/05/19 07:16 O2 Sat by Pulse Oximetry (%) 98 06/05/19 01:08 Neck: Yes: Supple Respiratory: Yes: CTA Bilaterally Gastrointestinal: Yes: Normal Bowel Sounds, Soft. No: Tenderness Cardiovascular: Yes: Regular Rate and Rhythm JVD: No PMI: Non-Displaced Heart Sounds: Yes: S1, S2. No: Clicks Edema: No - Other Data Labs, Other Data: CBC, BMP 06/05/19 06:00 06/05/19 06:00 INR, PTT INR 1.30 (0.83-1.09) H 06/04/19 22:10 Troponin, BNP 06/04/19 06/04/19 06/05/19 22:10 22:10 06:00 Troponin I < 0.02 0.02 B-Natriuretic Peptide 15.9 Laboratory Results - last 24 hr 06/05/19 06/05/19 06/05/19 01:44 06:00 06:00 WBC 2.4 L RBC 3.31 L Hgb 12.1 Hct 33.7 L MCV 101.7 H MCH 36.6 H MCHC 36.0 H RDW 14.4 Plt Count 42 L MPV 8.8 Absolute Neuts (auto) 1.6 Neutrophils % 63.4 D Lymphocytes % 24.0 D Monocytes % 10.7 H Eosinophils % 1.3 D Basophils % 0.6 Nucleated RBC % 0 Sodium 139 Potassium 3.4 L Chloride 106 Carbon Dioxide 26 Anion Gap 7 L BUN 6.7 L Creatinine 0.5 L Est GFR (CKD-EPI)AfAm 129.96 Est GFR (CKD-EPI)NonAf 112.13 POC Glucometer 216 Random Glucose 182 H Hemoglobin A1c % Calcium 8.0 L Magnesium 1.8 Total Bilirubin 4.0 H Direct Bilirubin AST 79 H ALT 46 Alkaline Phosphatase 212 H Creatine Kinase 387 H Creatine Kinase Index 0.4 CK-MB (CK-2) 1.9 Troponin I Total Protein 6.2 L Albumin 2.4 L Triglycerides Cholesterol Total LDL Cholesterol HDL Cholesterol 06/05/19 06/05/19 06/05/19 06:00 06:00 07:34 WBC RBC Hgb Hct MCV MCH MCHC RDW Plt Count MPV Absolute Neuts (auto) Neutrophils % Lymphocytes % Monocytes % Eosinophils % Basophils % Nucleated RBC % Sodium Potassium Chloride Carbon Dioxide Anion Gap BUN Creatinine Est GFR (CKD-EPI)AfAm Est GFR (CKD-EPI)NonAf POC Glucometer 183 Random Glucose Hemoglobin A1c % 7.9 H Calcium Magnesium Total Bilirubin Direct Bilirubin 1.2 H AST ALT Alkaline Phosphatase Creatine Kinase 395 H Creatine Kinase Index 0.4 CK-MB (CK-2) 1.7 Troponin I 0.02 Total Protein Albumin Triglycerides 144 Cholesterol 154 Total LDL Cholesterol 83 HDL Cholesterol 45 Sinus tachycardia, nonspecific IVCD, ? inferior infarct Imaging - Results Chest X-ray: Report Reviewed (Unremarkable) EKG: Report Reviewed Problem List - Problems (1) Pancytopenia Code(s): D61.818 - OTHER PANCYTOPENIA (2) HTN (hypertension) Code(s): I10 - ESSENTIAL (PRIMARY) HYPERTENSION (3) Hypercholesterolemia Code(s): E78.00 - PURE HYPERCHOLESTEROLEMIA, UNSPECIFIED (4) Alcohol dependence Code(s): F10.20 - ALCOHOL DEPENDENCE, UNCOMPLICATED (5) Alcohol intoxication Code(s): F10.129 - ALCOHOL ABUSE WITH INTOXICATION, UNSPECIFIED Qualifiers: (6) Elevated LFTs Code(s): R94.5 - ABNORMAL RESULTS OF LIVER FUNCTION STUDIES (7) Hepatic encephalopathy Code(s): K72.90 - HEPATIC FAILURE, UNSPECIFIED WITHOUT COMA (8) Hyperlipidemia Code(s): E78.5 - HYPERLIPIDEMIA, UNSPECIFIED (9) Hypokalemia Code(s): E87.6 - HYPOKALEMIA (10) Liver cirrhosis Code(s): K74.60 - UNSPECIFIED CIRRHOSIS OF LIVER Qualifiers: Hepatic cirrhosis type: alcoholic cirrhosis Ascites presence: unspecified Qualified Code(s): K70.30 - Alcoholic cirrhosis of liver without ascites Assessment/Plan 1. ETOH intoxication and encephalopathy 2. CAD s/p PCI/stent, angina pectoris 3. Alcoholic hepatitis, cirrhosis and varices 4. HTN 5. Hypercholesterolemia 6. DM 7. Pancytopenia due to ETOH abuse PLAN: 1. Detox and monitor withdrawl. Patient will need to be enrolled in detox program 2. Currently on Nadolol. Consider adding ACEI or ARB 3. Echocardiography should be repeated to assess LV/RV and valvular function 4. Previous nuclear MPI was abnormal. Would defer further cardiac work up until patient is stabilized with mental status 5. Monitor CBC 6. K supplement 7. Will need DM management Further plans are to follow Dr. Callejas to resume care on Thursday Indio Rice MD
[2019-06-05] MEDS ORDERED: SODIUM CHLORIDE 1,000 ML IV SCH (11:45)
--- NOTE | 2019-06-05 17:59 | PN ---
Progress Note (short form) - Note Progress Note: SUBJECTIVE: Lethargic s/p Ativan OBJECTIVE: Afebrile, Hemodynamically Stable. Rousable. Last Vital Signs Temp Pulse Resp BP Pulse Ox 98.1 F 110 H 19 142/97 99 06/05/19 15:57 06/05/19 15:57 06/05/19 15:57 06/05/19 15:57 06/05/19 15:57 HEENT - Atraumatic, Normocephalic. Heart - S1, S2, RRR Lungs - clear to auscultation Abdomen - soft, non-tender. Bowel Sounds normal. Extremities - no calf tendenress, trace edema. Neuro - TOVA. Moving all 4 extremities. Laboratory Results - last 24 hr 06/04/19 06/04/19 06/04/19 22:01 22:10 22:10 WBC 3.1 L RBC 3.64 L Hgb 13.4 Hct 37.8 MCV 103.8 H MCH 36.7 H MCHC 35.4 RDW 14.2 Plt Count 46 L MPV 8.5 Absolute Neuts (auto) 2.4 Neutrophils % 80.3 D Lymphocytes % 11.3 D Monocytes % 7.9 Eosinophils % 0.2 D Basophils % 0.3 Nucleated RBC % 0 PT with INR INR PTT (Actin FS) Sodium Potassium Chloride Carbon Dioxide Anion Gap BUN Creatinine Est GFR (CKD-EPI)AfAm Est GFR (CKD-EPI)NonAf POC Glucometer Random Glucose Hemoglobin A1c % Calcium Magnesium Total Bilirubin Direct Bilirubin AST ALT Alkaline Phosphatase Ammonia 63.00 H Creatine Kinase Creatine Kinase Index CK-MB (CK-2) Troponin I B-Natriuretic Peptide Total Protein Albumin Triglycerides Cholesterol Total LDL Cholesterol HDL Cholesterol Alcohol, Quantitative 19.9 H 06/04/19 06/04/19 06/04/19 22:10 22:10 22:10 WBC RBC Hgb Hct MCV MCH MCHC RDW Plt Count MPV Absolute Neuts (auto) Neutrophils % Lymphocytes % Monocytes % Eosinophils % Basophils % Nucleated RBC % PT with INR 15.40 H INR 1.30 H PTT (Actin FS) 35.7 Sodium 137 Potassium 3.6 Chloride 100 Carbon Dioxide 23 Anion Gap 14 BUN 8.0 Creatinine 0.7 Est GFR (CKD-EPI)AfAm 113.18 Est GFR (CKD-EPI)NonAf 97.65 POC Glucometer Random Glucose 244 H Hemoglobin A1c % Calcium 8.7 Magnesium Total Bilirubin 3.3 H Direct Bilirubin AST 88 H ALT 52 Alkaline Phosphatase 253 H Ammonia Creatine Kinase Creatine Kinase Index CK-MB (CK-2) Troponin I < 0.02 B-Natriuretic Peptide 15.9 Total Protein 6.9 Albumin 2.8 L Triglycerides Cholesterol Total LDL Cholesterol HDL Cholesterol Alcohol, Quantitative 06/05/19 06/05/19 06/05/19 01:44 06:00 06:00 WBC 2.4 L RBC 3.31 L Hgb 12.1 Hct 33.7 L MCV 101.7 H MCH 36.6 H MCHC 36.0 H RDW 14.4 Plt Count 42 L MPV 8.8 Absolute Neuts (auto) 1.6 Neutrophils % 63.4 D Lymphocytes % 24.0 D Monocytes % 10.7 H Eosinophils % 1.3 D Basophils % 0.6 Nucleated RBC % 0 PT with INR INR PTT (Actin FS) Sodium 139 Potassium 3.4 L Chloride 106 Carbon Dioxide 26 Anion Gap 7 L BUN 6.7 L Creatinine 0.5 L Est GFR (CKD-EPI)AfAm 129.96 Est GFR (CKD-EPI)NonAf 112.13 POC Glucometer 216 Random Glucose 182 H Hemoglobin A1c % Calcium 8.0 L Magnesium 1.8 Total Bilirubin 4.0 H Direct Bilirubin AST 79 H ALT 46 Alkaline Phosphatase 212 H Ammonia Creatine Kinase 387 H Creatine Kinase Index 0.4 CK-MB (CK-2) 1.9 Troponin I B-Natriuretic Peptide Total Protein 6.2 L Albumin 2.4 L Triglycerides Cholesterol Total LDL Cholesterol HDL Cholesterol Alcohol, Quantitative 06/05/19 06/05/19 06/05/19 06:00 06:00 07:34 WBC RBC Hgb Hct MCV MCH MCHC RDW Plt Count MPV Absolute Neuts (auto) Neutrophils % Lymphocytes % Monocytes % Eosinophils % Basophils % Nucleated RBC % PT with INR INR PTT (Actin FS) Sodium Potassium Chloride Carbon Dioxide Anion Gap BUN Creatinine Est GFR (CKD-EPI)AfAm Est GFR (CKD-EPI)NonAf POC Glucometer 183 Random Glucose Hemoglobin A1c % 7.9 H Calcium Magnesium Total Bilirubin Direct Bilirubin 1.2 H AST ALT Alkaline Phosphatase Ammonia Creatine Kinase 395 H Creatine Kinase Index 0.4 CK-MB (CK-2) 1.7 Troponin I 0.02 B-Natriuretic Peptide Total Protein Albumin Triglycerides 144 Cholesterol 154 Total LDL Cholesterol 83 HDL Cholesterol 45 Alcohol, Quantitative 06/05/19 06/05/19 06/05/19 10:04 13:35 15:32 WBC RBC Hgb Hct MCV MCH MCHC RDW Plt Count MPV Absolute Neuts (auto) Neutrophils % Lymphocytes % Monocytes % Eosinophils % Basophils % Nucleated RBC % PT with INR INR PTT (Actin FS) Sodium Potassium Chloride Carbon Dioxide Anion Gap BUN Creatinine Est GFR (CKD-EPI)AfAm Est GFR (CKD-EPI)NonAf POC Glucometer 133 134 Random Glucose Hemoglobin A1c % Calcium Magnesium Total Bilirubin Direct Bilirubin AST ALT Alkaline Phosphatase Ammonia Creatine Kinase Creatine Kinase Index CK-MB (CK-2) Troponin I < 0.02 B-Natriuretic Peptide Total Protein Albumin Triglycerides Cholesterol Total LDL Cholesterol HDL Cholesterol Alcohol, Quantitative Current Medications Generic Name Dose Route Start Last Admin Trade Name Freq PRN Reason Stop Dose Admin Folic Acid 1 mg 06/05/19 10:00 06/05/19 09:57 Folic Acid - PO Not Given DAILY [facility]IEGO Lactated Ringer's 1,000 ml in 1,000 mls @ 75 mls/hr 06/05/19 02:45 06/05/19 02:46 Lactated Ringers Solution IV 75 mls/hr ASDIR [facility] Administration Sodium Chloride 1,000 mls @ 100 mls/hr 06/05/19 11:45 06/05/19 11:52 Normal Saline - IV 100 mls/hr ASDIR [facility]IEGO Administration Insulin Aspart 1 vial 06/05/19 07:00 06/05/19 15:43 Novolog Vial Sliding Scale - SQ Not Given ACHS DIEGO Protocol Ketorolac Tromethamine 30 mg 06/05/19 03:26 06/05/19 03:48 Toradol Injection - IVPUSH 06/10/19 03:25 30 mg Q6H PRN Administration PAIN LEVEL 6-10 Lactulose 20 gm 06/05/19 06:00 06/05/19 14:49 Cephulac (Oral Use) PO Not Given TID DIEGO Lorazepam 2 mg 06/05/19 05:00 06/05/19 16:34 Ativan - PO 06/05/19 23:01 Not Given 0500,1100,1700,2300 [facility] Lorazepam 0.5 mg 06/07/19 05:00 Ativan - PO 06/07/19 23:01 Q6H [facility]GO Lorazepam 0.5 mg 06/08/19 05:00 Ativan - PO 06/08/19 05:01 ONCE ONE Lorazepam 1 mg 06/06/19 05:00 Ativan - PO 06/06/19 23:01 0500,1100,1700,2300 [facility] Lorazepam 1 mg 06/05/19 02:40 Ativan - PO 06/07/19 00:00 Q4H PRN Symptoms of Withdrawal Multivitamins/Minerals/Vitamin C 1 tab 06/05/19 10:00 06/05/19 09:56 Tab-A-Vit - PO Not Given DAILY [facility]GO Nadolol 40 mg 06/05/19 10:00 06/05/19 10:01 Corgard - PO Not Given DAILY [facility] Prochlorperazine Edisylate 5 mg 06/05/19 02:44 06/05/19 02:53 Compazine Injection - IM 5 mg Q6H PRN Administration NAUSEA AND/OR VOMITING Rifaximin 550 mg 06/05/19 10:00 06/05/19 09:57 Xifaxan - PO Not Given BID [facility] Thiamine HCl 100 mg 06/05/19 10:00 06/05/19 09:56 Vitamin B1 - PO Not Given DAILY [facility] Home Medications Medication Instructions Recorded Insulin (Levemir) [Levemir Flexpen 35 units SQ HS 05/25/17 -] Insulin (Levemir) [Levemir Flexpen 30 units SQ DAILY 05/26/17 -] Lactulose (Oral Use) [Cephulac -] 20 gm PO TID #180 gm 01/06/19 Nadolol 40 mg PO DAILY 06/05/19 ASSESSMENT/PLAN: 68 year old male with a past medical history of CAD (s/p 2 stents), HTN, HLD, DM 2, Alcohol Abuse, Cirrhosis with varices, presents with 2 day history of L sided chest pain, with radiation to the shoulder, L arm. CT Head - no acute intracranial findings. Some findings suggestive of NPH 1. Acute Alcohol Withdrawal CIWA 13 on presentation, placed on Ativan as per CIWA Can advance diet to clears as tolerated. Continue gentle IV hydration. Received Banana Bag Continue MVI, Thiamine, Folate. Addiction medicine consult for possible transfer to [facility] once chest pain worked up. 2. Chest Pain on background of CAD s/p PCI/Stents ECG - sinus tach, age indeterminate inferior infarct, no acute ST changes, QTc 481 Troponin neg x 3. Last MPI positve 06/15 Telemonitoring for at least 24 consecutive hours. Cardio consult - recommendations pending Hemodynamically Stable Echo requested. 3. Cirrhosis secondary to Alcohol excess No evidence of decompensation. No clinical ascites Gentle hydration Lactulose, Rifaximin, Nadolol. Bili/AST elevation sec to Cirrhosis. Monitor. 4. DM 2 - hold oral anti-hyperglycemics. Maintain on Novolog sliding scale. 5. Macrocytosis/Thrombocytopenia sec to Cirrhosis/Alcohol excess. No bleeding, will monitor. 6. HTN - resumed on Nadolol (prescribed but last picked up in December) 7. Findings of Dilated Ventricles on CT Head - unchanged from prior CT 01/14. Neurology consulted to exclude NPH. DVT Px - SCDs. Heparin/Lovenox held due to Thrombocytopenia Visit type - Emergency Visit Emergency Visit: Yes ED Registration Date: 06/05/19 Care time: The patient presented to the Emergency Department on the above date and was hospitalized for further evaluation of their emergent condition. - New Patient This patient is new to me today: Yes Date on this admission: 06/05/19 - Critical Care Critical Care patient: No - Discharge Referral Referred to [facility] Med P.C.: No
[2019-06-05] MEDS ORDERED: PANTOPRAZOLE SODIUM 40 MG VIAL ONE (18:18)
[2019-06-05] MEDS ORDERED: POTASSIUM CHLORIDE TABS 20 MEQ TABLET.ER (FP) PO ONE (18:18)
[2019-06-05] MEDS: POTASSIUM CHLORIDE TABS 20 MEQ TABLET.ER (FP) PO SCH ×2 (18:23→23:35)
[2019-06-05] MEDS: PANTOPRAZOLE SODIUM 40 MG VIAL IVPUSH SCH (18:23)
[2019-06-05] MEDS ORDERED: THIAMINE HCL 200 MG/2 ML VIAL ONE (18:53)
[2019-06-05] MEDS ORDERED: THIAMINE HCL 200 MG/2 ML VIAL IVPB ONE (19:15)
--- NOTE | 2019-06-05 19:50 | CONSULT ---
Consult - text type - Consultation Consultation Note: NEUROLOGY CONSULTATION is greatly appeciated: Events reviewed and discussed with RN. Patient examined with his at the bedside. Dr. Rice's cardiology consultation is read and appreciated. This 68 yo RH man with h/o HTN, HLD, DM and ASHD is s/p stents. Chronic alcoholism, esophageal varices and hyperammonemia. Maintained on: Insulins; Lactulose; and Nadolol 40 mg. Here yesterday with alcohol intoxication/ tachycardia. CT of head (06/04/19) reviewed: Moderate, diffuse atrophy without focal or traumatic changes. Pt went home last night and promptly resumed drinking. Returned to ER by his who "won't take him home this time." Given ativan this afternoon for "wandering in the halls." Current labs: BAL=19.9mg%; Ammonia= 63 umol/l; A1C= 7.9%. T. Bili=4 mg% TRV=311 BRITTON: No evidence of external head trauma. Neck supple. Kernig's neg NEURO: Lethargic but arousable. Ox [facility]. 2018 Dysarthric speech CN II-XII: normal without nystagmus Motor: Moves all fours well. Few beats of asterixis. No drift. Normal grasps. Reduced KJ's. Absent AJ's. Plantars silent Coord: No obvious dystaxia Vib: apparently reduced at the feet. IMP: Mild B/L cerebral dysfunction Toxic-metabolic encephalopathy (Intoxication/ Hepatic encephalopathy) Peripheral neuropathy. SUGGEST: Admit for detox protocol. Thiamine 250 mg IVPB q 8hrs x 3 days (first dose given in ER) Benzodiazepines (Chlordiazepoxide) 25 mg q 6 hrs PRN, agitation or tachycardia. GI/Hepatology consultation. Check B12, TSH. Follow Mg++ After acute detox- transfer to In-Pt detox, preferentially, or short-term rehab. Thank you very much, Monroe Woodruff MD
--- NOTE | 2019-06-05 23:56 | EKG ---
Test Reason : Blood Pressure : / mmHG Vent. Rate : 122 BPM Atrial Rate : 122 BPM P-R Int : 154 ms QRS Dur : 118 ms QT Int : 338 ms P-R-T Axes : 034 -61 076 degrees QTc Int : 481 ms SINUS TACHYCARDIA LEFT AXIS DEVIATION CANNOT RULE OUT INFERIOR INFARCT , AGE UNDETERMINED NON-SPECIFIC INTRA-VENTRICULAR CONDUCTION BLOCK ABNORMAL ECG WHEN COMPARED WITH ECG OF 04-JUN-2019 06:02, LIKELY NO SIGNIFICANT CHANGES Confirmed by RADHA PEARSON, JACLYN ([id number]) on 06/05/2019 11:56:31 PM Referred By: Confirmed By:JACLYN GARCIA MD
--- NOTE | 2019-06-06 00:54 | EKG ---
Test Reason : Blood Pressure : / mmHG Vent. Rate : 090 BPM Atrial Rate : 090 BPM P-R Int : 216 ms QRS Dur : 122 ms QT Int : 404 ms P-R-T Axes : 050 -65 071 degrees QTc Int : 494 ms SINUS RHYTHM LEFT AXIS DEVIATION NON-SPECIFIC INTRA-VENTRICULAR CONDUCTION BLOCK ABNORMAL ECG WHEN COMPARED WITH ECG OF 04-JUN-2019 21:12, VENT. RATE HAS DECREASED Confirmed by RADHA PEARSON, JACLYN ([id number]) on 06/06/2019 12:54:09 AM Referred By: Arvind HERNDON Confirmed By:JACLYN GARCIA MD
[2019-06-06] MEDS: THIAMINE HCL 200 MG/2 ML VIAL IVPB SCH ×3 (01:58→18:27)
[2019-06-06] MEDS: LACTATED RINGERS SOLUTION 1,000 ML/1,000 ML INFUS.BAG IV SCH (02:58)
[2019-06-06] MEDS: LORazepam 1 MG TABLET PO SCH ×2 (05:57→13:24)
[2019-06-06] MEDS: LACTULOSE 20 GM/30 ML UDC (FOR ORAL USE ONLY) PO SCH ×2 (05:57→13:24)
[2019-06-06] MEDS: INSULIN SLIDING SCALE (NOVOLOG) 1 VIAL SQ SCH ×4 (06:53→21:11)
[2019-06-06 08:47] LABS: BASO % 0.3 % (0-2.0); HEMATOCRIT 37.1 % (35.4-49); LYMPH % 16.1 % (8-40); MCH 36.5 pg (25.7-33.7); MCHC 35.1 g/dl (32.0-35.9); MEAN CELL VOLUME 104.1 fl (80-96); MEAN PLT VOLUME 9.2 fl (7.5-11.1); MONO % 9.7 % (3.8-10.2); NEUT % 72.9 % (42.8-82.8); PLATELET COUNT 45 K/MM3 (134-434); RBC 3.56 M/mm3 (4.00-5.60); RDW 14.3 % (11.9-15.9); WHITE BLOOD COUNT 3.8 K/mm3 (4.0-10.0)
[2019-06-06 09:03] LABS: ALBUMIN 2.6 g/dl (3.4-5.0); BILIRUBIN,TOTAL 5.3 mg/dL (0.2-1); BLOOD UREA NITROGEN 8.8 mg/dL (7-18); CALCIUM 8.2 mg/dL (8.5-10.1); CREATININE 0.7 mg/dL (0.55-1.3); MAGNESIUM 1.9 mg/dL (1.8-2.4); PHOSPHOROUS 1.6 mg/dL (2.5-4.9); POTASSIUM 3.5 mmol/L (3.5-5.1); TOT PROT 6.4 g/dl (6.4-8.2)
[2019-06-06] MEDS: FOLIC ACID 1 MG TABLET (FP) PO SCH (09:45)
[2019-06-06] MEDS: PANTOPRAZOLE SODIUM 40 MG VIAL IVPUSH SCH (09:45)
[2019-06-06] MEDS: NADOLOL 40 MG TABLET (FP) PO SCH (09:45)
[2019-06-06] MEDS: MULTIVITAMINS (DAILY MVI) TABLET (FP) PO SCH (09:45)
[2019-06-06] MEDS ORDERED: NAPH,MB-DB/K PH,MBDB POWDER PACKET PO ONE (10:01)
--- NOTE | 2019-06-06 10:30 | PN ---
Progress Note, Physician History of Present Illness: Patient is a 68 year old male of [place] with underlying history of CAD s/p PCI/stent, HTN, hypercholesterolemia, DM, liver disease with cirrhosis and varices due to long history of ETOH abuse. He is currently intoxicated and history was obtained from his by bedside. He has been to the hospital in the past and had signed out AMA. This time, he insisted to come to Hospital after drinking several bottles of wine. - Current Medication List Current Medications: Active Medications Folic Acid (Folic Acid -) 1 mg PO DAILY [facility] Last Admin: 06/06/19 09:45 Dose: Not Given Lactated Ringer's (Lactated Ringers Solution) 1,000 ml in 1,000 mls @ 75 mls/ hr IV ASDIR [facility] Last Admin: 06/06/19 02:58 Dose: Not Given Insulin Aspart (Novolog Vial Sliding Scale -) 1 vial SQ ACHS [facility]; Protocol Last Admin: 06/06/19 06:53 Dose: Not Given Lactulose (Cephulac (Oral Use)) 20 gm PO TID [facility] Last Admin: 06/06/19 05:57 Dose: 20 gm Lorazepam (Ativan -) 0.5 mg PO Q6H [facility] Stop: 06/07/19 23:01 Lorazepam (Ativan -) 0.5 mg PO ONCE ONE Stop: 06/08/19 05:01 Lorazepam (Ativan -) 1 mg PO 0500,1100,1700,2300 DIEGO Stop: 06/06/19 23:01 Last Admin: 06/06/19 05:57 Dose: 1 mg Lorazepam (Ativan -) 1 mg PO Q4H PRN PRN Reason: Symptoms of Withdrawal Stop: 06/07/19 00:00 Multivitamins/Minerals/Vitamin C (Tab-A-Vit -) 1 tab PO DAILY [facility] Last Admin: 06/06/19 09:45 Dose: Not Given Nadolol (Corgard -) 40 mg PO DAILY [facility] Last Admin: 06/06/19 09:45 Dose: Not Given Pantoprazole Sodium (Protonix Iv) 40 mg IVPUSH DAILY [facility] Last Admin: 06/06/19 09:45 Dose: 40 mg Prochlorperazine Edisylate (Compazine Injection -) 5 mg IM Q6H PRN PRN Reason: NAUSEA AND/OR VOMITING Last Admin: 12/08/19 02:53 Dose: 5 mg Rifaximin (Xifaxan -) 550 mg PO BID DIEGO Last Admin: 06/05/19 23:35 Dose: 550 mg Thiamine HCl (Vitamin B1 Injection -) 250 mg IVPB Q8H-IV [facility]IEGO Stop: 06/08/19 18:01 Last Admin: 06/06/19 09:56 Dose: 250 mg - Objective Vital Signs: Vital Signs Temperature 98.3 F 06/06/19 06:00 Pulse Rate 104 H 06/06/19 06:55 Respiratory Rate 18 06/06/19 06:00 Blood Pressure 118/83 06/06/19 06:00 O2 Sat by Pulse Oximetry (%) 97 06/05/19 23:00 Eyes: Yes: WNL, Conjunctiva Clear, EOM Intact HENT: Yes: WNL, Atraumatic, Normocephalic Neck: Yes: WNL, Supple, Trachea Midline Cardiovascular: Yes: WNL, Regular Rate and Rhythm Respiratory: Yes: WNL, Regular, CTA Bilaterally Gastrointestinal: Yes: WNL, Normal Bowel Sounds Genitourinary: Yes: WNL Musculoskeletal: Yes: WNL Extremities: Yes: WNL Edema: No Integumentary: Yes: WNL Neurological: Yes: WNL, Alert, Oriented ...Motor Strength: WNL Psychiatric: Yes: WNL Labs: CBC, BMP 06/06/19 07:10 06/06/19 07:20 INR, PTT INR 1.30 (0.83-1.09) H 06/04/19 22:10 Problem List - Problems (1) HTN (hypertension) Code(s): I10 - ESSENTIAL (PRIMARY) HYPERTENSION (2) Hypercholesterolemia Code(s): E78.00 - PURE HYPERCHOLESTEROLEMIA, UNSPECIFIED (3) Pancytopenia Code(s): D61.818 - OTHER PANCYTOPENIA (4) Abdominal pain Code(s): R10.9 - UNSPECIFIED ABDOMINAL PAIN (5) Alcohol dependence Code(s): F10.20 - ALCOHOL DEPENDENCE, UNCOMPLICATED (6) Alcohol intoxication Code(s): F10.129 - ALCOHOL ABUSE WITH INTOXICATION, UNSPECIFIED Qualifiers: (7) Chest pain Code(s): R07.9 - CHEST PAIN, UNSPECIFIED Qualifiers: (8) Diarrhea Code(s): R19.7 - DIARRHEA, UNSPECIFIED (9) ETOH abuse Code(s): F10.10 - ALCOHOL ABUSE, UNCOMPLICATED (10) Elevated LFTs Code(s): R94.5 - ABNORMAL RESULTS OF LIVER FUNCTION STUDIES (11) Facial trauma Code(s): S09.93XA - UNSPECIFIED INJURY OF FACE, INITIAL ENCOUNTER Qualifiers: Encounter type: initial encounter Qualified Code(s): S09.93XA - Unspecified injury of face, initial encounter (12) H/O heart artery stent Code(s): Z95.5 - PRESENCE OF CORONARY ANGIOPLASTY IMPLANT AND GRAFT (13) Head trauma Code(s): S09.90XA - UNSPECIFIED INJURY OF HEAD, INITIAL ENCOUNTER Qualifiers: Encounter type: initial encounter Qualified Code(s): S09.90XA - Unspecified injury of head, initial encounter (14) Hepatic encephalopathy Code(s): K72.90 - HEPATIC FAILURE, UNSPECIFIED WITHOUT COMA (15) Hyperammonemia Code(s): E72.20 - DISORDER OF UREA CYCLE METABOLISM, UNSPECIFIED (16) Hyperlipidemia Code(s): E78.5 - HYPERLIPIDEMIA, UNSPECIFIED (17) Hypokalemia Code(s): E87.6 - HYPOKALEMIA (18) Laceration of ear Code(s): S01.319A - LACERATION WITHOUT FOREIGN BODY OF UNSP EAR, INIT ENCNTR (19) Liver cirrhosis Code(s): K74.60 - UNSPECIFIED CIRRHOSIS OF LIVER Qualifiers: Hepatic cirrhosis type: alcoholic cirrhosis Ascites presence: unspecified Qualified Code(s): K70.30 - Alcoholic cirrhosis of liver without ascites (20) Nausea & vomiting Code(s): R11.2 - NAUSEA WITH VOMITING, UNSPECIFIED (21) Patient left before evaluation by physician Code(s): Z53.21 - PROC/TRTMT NOT CRD OUT D/T PT LV BEF SEEN BY [facility] (22) Thrombocytopenia Code(s): D69.6 - THROMBOCYTOPENIA, UNSPECIFIED Assessment/Plan 1. ETOH intoxication and encephalopathy 2. CAD s/p PCI/stent, angina pectoris 3. Alcoholic hepatitis, cirrhosis and varices 4. HTN 5. Hypercholesterolemia 6. DM 7. Pancytopenia due to ETOH abuse PLAN: 1. Detox and monitor withdrawl. Patient will need to be enrolled in detox program 2. Currently on Nadolol. Consider adding ACEI or ARB 3. Echocardiography should be repeated to assess LV/RV and valvular function 4. Previous nuclear MPI was abnormal. Would defer further cardiac work up until patient is stabilized with mental status 5. Monitor CBC 6. K supplement 7. Will need DM management
[2019-06-06] MEDS ORDERED: PT OWN MED DRAWER 7, Y5N ONE (13:22)
[2019-06-06] MEDS: RIFAXIMIN 550 MG TABLET (UD) PO SCH ×2 (13:24→21:10)
[2019-06-06] MEDS ORDERED: LACTULOSE 20 GM/30 ML UDC (FOR RECTAL USE ONLY) PR SCH (14:00)
[2019-06-06] MEDS ORDERED: LACTULOSE 10 GM/15 ML BULK BOTTLE RC SCH (14:00)
--- NOTE | 2019-06-06 15:07 | PN ---
Physical Exam: SUBJECTIVE: Patient seen and examined at the bedside. Patient was lethargic and had trouble waking up but was mildly responsive to sternal rub and fell asleep immediately. Reassessed and was more awake. Denied any acute cp, sob, abd pain, n/v/c/d, fever, chills. OBJECTIVE: Vital Signs Period Temp Pulse Resp BP Sys/Argueta Pulse Ox Last 24 Hr 97.9 F-98.6 F 86-120 18-20 118-151/65-97 95-99 GENERAL: Awake, alert, oriented x3. Slow to move. HEAD: Normal with no signs of trauma. EYES: Pupils equal, round and reactive to light, extraocular movements intact, mild scleral icterus. EARS, NOSE, THROAT: Oropharynx clear without exudates. Moist mucous membranes. NECK: Normal range of motion, supple without lymphadenopathy, JVD. LUNGS: Breath sounds equal, clear to auscultation bilaterally. No wheezes, and no crackles. No accessory muscle use. HEART: Regular rate and regular rhythm, normal S1 and S2 without murmur, rub. ABDOMEN: Soft, nontender, mildly distended, normoactive bowel sounds, no guarding, no rebound, no masses. No fluid wave. MUSCULOSKELETAL: Normal range of motion at all joints. No bony deformities or tenderness. UPPER EXTREMITIES: 2+ pulses, warm, well-perfused. No cyanosis. No clubbing. No peripheral edema. LOWER EXTREMITIES: 2+ pulses, warm, well-perfused. No calf tenderness. No peripheral edema. NEUROLOGICAL: Cranial nerves II-XII intact. 4/5 muscle strength throughout upper and lower extremities bilaterally. SKIN: Warm, moist, normal turgor, no rashes or lesions noted, normal capillary refill. Laboratory Results - last 24 hr 06/05/19 06/05/19 06/06/19 15:32 23:42 06:44 WBC RBC Hgb Hct MCV MCH MCHC RDW Plt Count MPV Absolute Neuts (auto) Neutrophils % Lymphocytes % Monocytes % Eosinophils % Basophils % Nucleated RBC % Sodium Potassium Chloride Carbon Dioxide Anion Gap BUN Creatinine Est GFR (CKD-EPI)AfAm Est GFR (CKD-EPI)NonAf POC Glucometer 134 238 198 Random Glucose Calcium Phosphorus Magnesium Total Bilirubin AST ALT Alkaline Phosphatase Total Protein Albumin Vitamin B12 TSH 06/06/19 06/06/19 06/06/19 07:10 07:20 13:15 WBC 3.8 L RBC 3.56 L Hgb 13.0 Hct 37.1 MCV 104.1 H MCH 36.5 H MCHC 35.1 RDW 14.3 Plt Count 45 L MPV 9.2 Absolute Neuts (auto) 2.8 Neutrophils % 72.9 Lymphocytes % 16.1 D Monocytes % 9.7 Eosinophils % 1.0 Basophils % 0.3 Nucleated RBC % 0 Sodium 137 Potassium 3.5 Chloride 105 Carbon Dioxide 23 Anion Gap 10 BUN 8.8 Creatinine 0.7 Est GFR (CKD-EPI)AfAm 113.18 Est GFR (CKD-EPI)NonAf 97.65 POC Glucometer 261 Random Glucose 197 H Calcium 8.2 L Phosphorus 1.6 L Magnesium 1.9 Total Bilirubin 5.3 H AST 83 H ALT 48 Alkaline Phosphatase 172 H Total Protein 6.4 Albumin 2.6 L Vitamin B12 1494 H TSH 1.22 D Active Medications Generic Name Dose Route Start Last Admin Trade Name Freq PRN Reason Stop Dose Admin Folic Acid 1 mg 06/05/19 10:00 06/06/19 09:45 Folic Acid - PO Not Given DAILY [facility] Lactated Ringer's 1,000 ml in 1,000 mls @ 75 mls/hr 06/05/19 02:45 06/06/19 02:58 Lactated Ringers Solution IV Not Given ASDIR [facility] Insulin Aspart 1 vial 06/05/19 07:00 06/06/19 13:25 Novolog Vial Sliding Scale - SQ 4 unit ACHS [facility] Administration Protocol Lactulose 200 gm 06/06/19 14:00 06/06/19 13:37 Cephulac - RC Not Given TID [facility]IEGO Lorazepam 0.5 mg 06/07/19 05:00 Ativan - PO 06/07/19 23:01 Q6H [facility] Lorazepam 0.5 mg 06/08/19 05:00 Ativan - PO 06/08/19 05:01 ONCE ONE Lorazepam 1 mg 06/06/19 05:00 06/06/19 13:24 Ativan - PO 06/06/19 23:01 1 mg 0500,1100,1700,2300 DIEGO Administration Lorazepam 1 mg 06/05/19 02:40 Ativan - PO 06/07/19 00:00 Q4H PRN Symptoms of Withdrawal Multivitamins/Minerals/Vitamin C 1 tab 12/08/19 10:00 06/06/19 09:45 Tab-A-Vit - PO Not Given DAILY [facility] Nadolol 40 mg 06/05/19 10:00 06/06/19 09:45 Corgard - PO Not Given DAILY [facility] Pantoprazole Sodium 40 mg 06/05/19 18:15 06/06/19 09:45 Protonix Iv IVPUSH 40 mg DAILY [facility] Administration Prochlorperazine Edisylate 5 mg 06/05/19 02:44 06/05/19 02:53 Compazine Injection - IM 5 mg Q6H PRN Administration NAUSEA AND/OR VOMITING Rifaximin 550 mg 06/05/19 10:00 06/06/19 13:24 Xifaxan - PO 550 mg BID [facility]IE[facility] Administration Thiamine HCl 250 mg 06/06/19 02:00 06/06/19 09:56 Vitamin B1 Injection - IVPB 06/08/19 18:01 250 mg Q8H-IV [facility] Administration ASSESSMENT/PLAN: Jeremi Tolliver is a 68 year old male with a past medical history of CAD (s/p 2 stents), HTN, HLD, DM, cirrhosis with varices, alcohol use disorder who presented with chest pain of 2 day duration admitted for alcohol withdrawal and chest pain. Alcohol Withdrawal - unable to assess CIWA due to lethargy - continue Ativan withdrawal protocol in setting of patient's cirrhosis diagnosis - seizure, fall, dysphagia precautions - neurochecks - consult addiction medicine - banana bag given - supplement thiamine, folate, MVI, magnesium - hydrate LR at 75cc/hr - compazine for nausea, avoid QTc prolonging agents - earlier CT head with no acute pathology Chest Pain - EKG showing sinus tach, age indeterminate inferior infarct, no acute ST changes - troponins x3 negative - repeat EKG unchanged - echo pending - cardiology consulted, recs appreciated - defer further cardiac testing until patient stabilized - CXR showing no acute pathology Hx of cirrhosis - lactulose 20gm PO qid, titrate for 3-5 bowel movements - rifaximin 550mg tid - LR @ 75cc/hr to maintain adequate hydration in setting of patient's poor oral intake and lactulose administration - monitor volume status - neurochecks - ammonia 63, patient not AOx3, continue to monitor - 01/05 RUQ US showing atrophic cirrhotic liver - elevated bilirubin, AST, PT/PTT/INR likely in setting of cirrhosis - direct bilirubin ordered for AM - blood, urine culture - RUQ U/S DM - hold home meds - BGM - ISS ACHS Hx of CAD with stents - patient noted he was on Plavix, unable to confirm with pharmacy, hold in setting of low platelets - currently thrombocytopenic, chronic, restart as per cardiology Thrombocytopenia - Plts 45, chronically low - likely in setting of cirrhosis - monitor for bleeding HTN - pharmacy called and noted that patient had last picked up nadalol 30mg daily in December - will restart nadolol 30mg, and adjust as per cardiology FEN - LR at 75cc/hr - continue to monitor electrolytes and replete as necessary - clear liquids Prophylaxis - avoid chemical AC due to thrombocytopenia, SCDs questionable as they may also cause damage to blood vessels in setting of thrombocytopenia - early ambulation Dispo - continue to monitor on Med-surg Visit type - Emergency Visit Emergency Visit: Yes ED Registration Date: 06/05/19 Care time: The patient presented to the Emergency Department on the above date and was hospitalized for further evaluation of their emergent condition. - New Patient This patient is new to me today: No - Critical Care Critical Care patient: No
[2019-06-06] MEDS ORDERED: LACTULOSE 20 GM/30 ML UDC (FOR ORAL USE ONLY) PO PRN (15:42)
[2019-06-06 15:46] VITALS: BMI 22.6
--- NOTE | 2019-06-06 15:52 | ECHO ---
Name: JOSEMANUEL YESENIA Exam:Adult Echocardiogram Study Date: 06/06/2019 12:23 PM Age: 68 yrs Height: 68 in Weight: 145 lb BSA: 1.8 m2 MMode/2D Measurements & Calculations IVSd: 0.99 cm Ao root diam: 2.9 cm LVIDd: 4.1 cm LA dimension: 2.5 cm LVIDs: 2.9 cm LVPWd: 1.2 cm LVPWs: 1.3 cm EDV(Teich): 73.1 ml ESV(Teich): 33.1 ml LVOT diam: 2.0 cm Doppler Measurements & Calculations MV E max scott: 91.8 cm/sec Ao V2 max: 149.8 cm/sec MV A max scott: 114.0 cm/sec Ao max P.3 mmHg MV E/A: 0.81 MV dec time: 0.05 sec OSCAR(V,D): 2.1 cm2 LV V1 max P.6 mmHg PA V2 max: 127.6 cm/sec LV V1 max: 95.3 cm/sec PA max P.5 mmHg Med Peak E' Scott: 7.0 cm/sec Med E/e': 13.1 Lat Peak E' Scott: 6.4 cm/sec Lat E/e': 14.4 Procedure A complete two-dimensional transthoracic echocardiogram was performed (2D, M-mode, Doppler and color flow Doppler). Technically limited study. Left Ventricle The left ventricle is normal in size. Left ventricular systolic function is normal. Ejection Fraction = 60- 65%. No regional wall motion abnormalities noted. Right Ventricle The right ventricle is normal size. The right ventricular systolic function is normal. Atria The left atrial size is normal. Right atrial size is normal. Mitral Valve The mitral valve is normal in structure and function. There is no mitral regurgitation noted. Tricuspid Valve The tricuspid valve is normal in structure and function. No tricuspid regurgitation. Aortic Valve There is mild aortic sclerosis.;. No aortic regurgitation is present. Pulmonic Valve The pulmonic valve is not well visualized. Great Vessels The aortic root is normal size. Pericardium/Pleura There is no pericardial effusion. Interpretation Summary The left ventricle is normal in size. Left ventricular systolic function is normal. No regional wall motion abnormalities noted. Ejection Fraction = 60-65%. There is mild aortic sclerosis.; No significant valvular regurgitations There is no pericardial effusion. Indio Rice MD 06/06/2019 03:52 PM
--- NOTE | 2019-06-06 17:02 | PN ---
Teaching Attending Note Name of Resident: Cuong Coburn ATTENDING PHYSICIAN STATEMENT I saw and evaluated the patient. I reviewed the resident's note and discussed the case with the resident. I agree with the resident's findings and plan as documented with exceptions below. SUBJECTIVE: Patient seen and examined. lethargic, opens eyes minimally, unable to do ROS. at bedside, reports agitation overnight. OBJECTIVE: Vital Signs Period Temp Pulse Resp BP Sys/Argueta Pulse Ox Last 24 Hr 97.9 F-98.6 F 86-120 18-20 118-151/65-89 95-99 Intake & Output 06/03/19 06/04/19 06/05/19 06/06/19 23:59 23:59 23:59 23:59 Intake Total 400 1510 Balance 400 1510 Weight 145 lb 129 lb 149 lb General: assessed around 1130 AM, lethargic, minimally arousable HEENT: PERRL, dry mucous membrane Neck: soft, supple Chest: lack of co-operation, limited exam Abdomen;Soft, wincing on RUQ palpation, no voluntary or involuntary guarding or rigidity Extremities: no edema, unable to check for asterexis Home Medications Medication Instructions Recorded Insulin (Levemir) [Levemir Flexpen 35 units SQ HS 05/25/17 -] Insulin (Levemir) [Levemir Flexpen 50 units SQ BID 05/26/17 -] Lactulose (Oral Use) [Cephulac -] 20 gm PO TID #180 gm 01/06/19 Nadolol 40 mg PO DAILY 06/05/19 Active Medications Folic Acid (Folic Acid -) 1 mg PO DAILY [facility] Last Admin: 06/06/19 09:45 Dose: Not Given Lactated Ringer's (Lactated Ringers Solution) 1,000 ml in 1,000 mls @ 75 mls/ hr IV ASDIR [facility] Last Admin: 06/06/19 02:58 Dose: Not Given Insulin Aspart (Novolog Vial Sliding Scale -) 1 vial SQ [facility]; Protocol Last Admin: 06/06/19 13:25 Dose: 4 unit Lactulose (Cephulac (Oral Use)) 20 gm PO QID PRN PRN Reason: CONSTIPATION Lorazepam (Ativan -) 1 mg PO Q4H PRN PRN Reason: Symptoms of Withdrawal Stop: 06/07/19 00:00 Lorazepam (Ativan -) 0.5 mg PO Q6H DIEGO Stop: 06/07/19 11:01 Multivitamins/Minerals/Vitamin C (Tab-A-Vit -) 1 tab PO DAILY DIEGO Last Admin: 06/06/19 09:45 Dose: Not Given Nadolol (Corgard -) 40 mg PO DAILY DIEGO Last Admin: 06/06/19 09:45 Dose: Not Given Pantoprazole Sodium (Protonix Iv) 40 mg IVPUSH DAILY DIEGO Last Admin: 06/06/19 09:45 Dose: 40 mg Prochlorperazine Edisylate (Compazine Injection -) 5 mg IM Q6H PRN PRN Reason: NAUSEA AND/OR VOMITING Last Admin: 06/05/19 02:53 Dose: 5 mg Rifaximin (Xifaxan -) 550 mg PO BID DIEGO Last Admin: 06/06/19 13:24 Dose: 550 mg Thiamine HCl (Vitamin B1 Injection -) 250 mg IVPB Q8H-IV DIEGO Stop: 06/08/19 18:01 Last Admin: 06/06/19 09:56 Dose: 250 mg Laboratory Results - last 24 hr 06/05/19 06/06/19 06/06/19 23:42 06:44 07:10 WBC 3.8 L RBC 3.56 L Hgb 13.0 Hct 37.1 MCV 104.1 H MCH 36.5 H MCHC 35.1 RDW 14.3 Plt Count 45 L MPV 9.2 Absolute Neuts (auto) 2.8 Neutrophils % 72.9 Lymphocytes % 16.1 D Monocytes % 9.7 Eosinophils % 1.0 Basophils % 0.3 Nucleated RBC % 0 Sodium Potassium Chloride Carbon Dioxide Anion Gap BUN Creatinine Est GFR (CKD-EPI)AfAm Est GFR (CKD-EPI)NonAf POC Glucometer 238 198 Random Glucose Calcium Phosphorus Magnesium Total Bilirubin AST ALT Alkaline Phosphatase Total Protein Albumin Vitamin B12 TSH 06/06/19 06/06/19 07:20 13:15 WBC RBC Hgb Hct MCV MCH MCHC RDW Plt Count MPV Absolute Neuts (auto) Neutrophils % Lymphocytes % Monocytes % Eosinophils % Basophils % Nucleated RBC % Sodium 137 Potassium 3.5 Chloride 105 Carbon Dioxide 23 Anion Gap 10 BUN 8.8 Creatinine 0.7 Est GFR (CKD-EPI)AfAm 113.18 Est GFR (CKD-EPI)NonAf 97.65 POC Glucometer 261 Random Glucose 197 H Calcium 8.2 L Phosphorus 1.6 L Magnesium 1.9 Total Bilirubin 5.3 H AST 83 H ALT 48 Alkaline Phosphatase 172 H Total Protein 6.4 Albumin 2.6 L Vitamin B12 1494 H TSH 1.22 D ASSESSMENT AND PLAN: 68 yom with PMhx of ETOH abuse, alcoholic cirrhosis, hepatic encephalopthy, esophageal varices Grade I on prior EKG, CAD s/p last reported PCI 2004, last stress test 05/2018 with moderate reversible ischemia, IDDM, HTN, HLD admitted with acute decompensated hepatic cirrhosis from ongoing alcohol abuse -Acute decompensated hepatic cirrhosis from ongoing ETOH abuse -AMS, suspect toxic metabolic encephalopathy from Alcohol withdrawal/DTs+/- hepatic encephalopathy -Chest pain -Grade I esophageal cirrhosis -ETOH abuse/dependence -CAD s/p PCI x2 2004, abnormal stress test 05/2018 -Macrocytosis -Thrombocytopenia -IDDM -HTN -HLD -Dilated ventricles suspect from cerebral atrophy related to long standing ETOH use, rather than NPH Plan: Ativan protocol, monitor for sedation. Daily LFTs/coags MELD 16. GI input Abdominal US, blood/urine cultures, screen for infection Decompensation suspect from ongoing ETOH use. lactulose PO or WA as able to titrate for 2-3 loose BM/day. Continue rifaximin/nadolol as able to take PO. Gentle hydration Cardiology input noted. ACS ruled out. 2D echo noted Conservative management till active alcohol concerns ruled out. Hold oral hypoglycemics, ISS. Neurology input noted. MVI/Folate/thiamine. s/p banana bag. DVTPPX scds given thrombocytopenia GIPPx dispo pending clinical improvement. usp prognosis guarded given ongoing heavy ETOH use Discussed with at bedside.
--- NOTE | 2019-06-06 17:14 | CON.GI ---
Consult Consult Specialty:: GI Referred by:: Medicine Reason for Consultation:: cirrhosis, rising bili - History of Present Illness Chief Complaint: ETOH withdrawal History of Present Illness: 68M with h/o CAD, ETOH cirrhosis, seems compensated, presenting for ETOH withdrawal, getting benzos. GI consulted for rising bilirubin. at bedside. She reports last drink Thursday, came in on Thursday. No hematemesis. Is having regular brown stool. No abdominal pain. 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 after drinking possiple hepatic encephalopathy ) Cardio/Vascular: Yes: CAD Gastrointestinal: Yes: Esophageal Varices Hepatobiliary: Yes: Cirrhosis Endocrine: Yes: Diabetes Mellitus - Past Surgical History Past Surgical History: Yes: None - Alcohol/Substance Use Hx Alcohol Use: Yes History of Substance Use: reports: None - Smoking History Smoking history: Never smoked Have you smoked in the past 12 months: No Aproximately how many cigarettes per day: 10 - Social History Usual Living Arrangement: With Spouse 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, 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 History of Recent Travel: No Home Medications - Allergies Allergies/Adverse Reactions: Allergies Allergy/AdvReac Type Severity Reaction Status Date / Time No Known Allergies Allergy Verified 06/04/19 20:53 - Home Medications Home Medications: Ambulatory Orders Insulin (Levemir) [Levemir Flexpen -] 35 units SQ HS 05/25/17 Insulin (Levemir) [Levemir Flexpen -] 50 units SQ BID 05/26/17 Lactulose (Oral Use) [Cephulac -] 20 gm PO TID #180 gm 01/06/19 Nadolol 40 mg PO DAILY 06/05/19 Review of Systems Unable to obtain ROS, reason: patient lethargic Physical Exam-GI Vital Signs: Vital Signs Temperature 98.5 F 06/06/19 15:22 Pulse Rate 96 H 06/06/19 15:22 Respiratory Rate 18 06/06/19 15:22 Blood Pressure 145/85 06/06/19 15:22 O2 Sat by Pulse Oximetry (%) 95 06/06/19 09:00 Constitutional: Yes: Well Nourished, No Distress, Other (mild lethargy) Cardiovascular: Yes: Regular Rate and Rhythm Respiratory: Yes: CTA Bilaterally ...Palpate: Yes: Soft. No: Tenderness ...Percussion: No: Fluid Wave, Tympanitic ...Rectal Exam: Yes: Deferred Edema: No Neurological: Yes: Alert. No: Oriented Psychiatric: Yes: Alert. No: Oriented Labs: CBC, BMP 06/06/19 07:10 06/06/19 07:20 INR, PTT INR 1.30 (0.83-1.09) H 06/04/19 22:10 Hepatic Panel Total Bilirubin 5.3 mg/dL (0.2-1) H 06/06/19 07:20 Direct Bilirubin 1.2 mg/dL (0.0-0.2) H 06/05/19 06:00 AST 83 U/L (15-37) H 06/06/19 07:20 ALT 48 U/L (13-61) 06/06/19 07:20 Alkaline Phosphatase 172 U/L (45-117) H 06/06/19 07:20 Albumin 2.6 g/dl (3.4-5.0) L 06/06/19 07:20 Assessment/Plan ETOH cirrhosis. Rising bilirubin - would rule out hepatic lesion vs infection. IF ETOH hepatitis, although doubt, has low DF. - would martinez-culture - blood, urine, ascites if present - US to assess for HCC, PVT - daily LFTs and INR - agree with lactulose/rifaximin to 3bm per day - discussed ETOH abstinence w Will follow
[2019-06-06] MEDS: LORazepam 0.5 MG TABLET PO SCH ×2 (17:53→21:10)
[2019-06-07] MEDS: LORazepam 0.5 MG TABLET PO SCH ×2 (00:36→05:22)
[2019-06-07] MEDS: THIAMINE HCL 200 MG/2 ML VIAL IVPB SCH ×3 (01:39→17:23)
[2019-06-07] MEDS ORDERED: LORazepam 0.5 MG TABLET PO SCH (05:00)
[2019-06-07] MEDS: LACTATED RINGERS SOLUTION 1,000 ML/1,000 ML INFUS.BAG IV SCH (05:22)
[2019-06-07] MEDS ORDERED: LORazepam 0.5 MG TABLET PO PRN (07:43)
[2019-06-07 08:28] LABS: HEMATOCRIT 34.8 % (35.4-49); HEMOGLOBIN 12.5 GM/dL (11.7-16.9); MCH 36.8 pg (25.7-33.7); MCHC 35.9 g/dl (32.0-35.9); MEAN CELL VOLUME 102.5 fl (80-96); MEAN PLT VOLUME 7.9 fl (7.5-11.1); PLATELET COUNT 46 K/MM3 (134-434); RDW 14.4 % (11.9-15.9); WHITE BLOOD COUNT 3.4 K/mm3 (4.0-10.0)
[2019-06-07 08:52] LABS: INR 1.59 (0.83-1.09); PROTHROMBIN TIME (PATIENT) 18.9 SEC (9.7-13.0)
[2019-06-07] MEDS: INSULIN SLIDING SCALE (NOVOLOG) 1 VIAL SQ SCH ×3 (08:52→17:01)
[2019-06-07 09:34] LABS: ALBUMIN 2.4 g/dl (3.4-5.0); BILIRUBIN,DIRECT 1.3 mg/dL (0.0-0.2); BILIRUBIN,TOTAL 4.2 mg/dL (0.2-1); BLOOD UREA NITROGEN 7.2 mg/dL (7-18); CREATININE 0.6 mg/dL (0.55-1.3)
[2019-06-07] MEDS: FOLIC ACID 1 MG TABLET (FP) PO SCH (11:14)
[2019-06-07] MEDS: PANTOPRAZOLE SODIUM 40 MG VIAL IVPUSH SCH (11:14)
[2019-06-07] MEDS: RIFAXIMIN 550 MG TABLET (UD) PO SCH (11:16)
[2019-06-07] MEDS: MULTIVITAMINS (DAILY MVI) TABLET (FP) PO SCH (11:16)
[2019-06-07] MEDS: NADOLOL 40 MG TABLET (FP) PO SCH (11:16)
[2019-06-07] MEDS ORDERED: INSULIN (NOVOLOG) ASPART 100 UNITS/ML 10ML VIAL ONE (11:30)
[2019-06-07] MEDS ORDERED: FUROSEMIDE 40 MG/4 ML INJECTABLE VIAL IVPUSH ONE (12:32)
[2019-06-07] MEDS ORDERED: SPIRONOLACTONE 25 MG TABLET (FP) PO SCH (12:45)
--- NOTE | 2019-06-07 14:02 | PN ---
Physical Exam: SUBJECTIVE: Patient seen and examined at the bedside. Was more awake and alert today. Denied any acute pains. Wanted to go home. Denied cp, sob, abd pain, n/v/ c/d, fever, chills, numbness, tingling. Nurses note that patient has been having bowel movements OBJECTIVE: Vital Signs Period Temp Pulse Resp BP Sys/Argueta Pulse Ox Last 24 Hr 97.8 F-98.6 F 89-97 18-26 145-157/81-93 95-97 GENERAL: Awake, alert, oriented x3. Slow to move. HEAD: Normal with no signs of trauma. EYES: Pupils equal, round and reactive to light, extraocular movements intact, mild scleral icterus. EARS, NOSE, THROAT: Oropharynx clear without exudates. Moist mucous membranes. NECK: Normal range of motion, supple without lymphadenopathy, JVD. LUNGS: Breath sounds equal, clear to auscultation bilaterally. No wheezes, and no crackles. No accessory muscle use. HEART: Regular rate and regular rhythm, normal S1 and S2 without murmur, rub. ABDOMEN: Soft, nontender, mildly distended, normoactive bowel sounds, no guarding, no rebound, no masses. No fluid wave. MUSCULOSKELETAL: Normal range of motion at all joints. No bony deformities or tenderness. UPPER EXTREMITIES: 2+ pulses, warm, well-perfused. No cyanosis. No clubbing. No peripheral edema. LOWER EXTREMITIES: 2+ pulses, warm, well-perfused. No calf tenderness. No peripheral edema. NEUROLOGICAL: Cranial nerves II-XII intact. 4/5 muscle strength throughout upper and lower extremities bilaterally. SKIN: Warm, moist, normal turgor, no rashes or lesions noted, normal capillary refill. Laboratory Results - last 24 hr 06/06/19 06/06/19 06/07/19 17:51 21:09 05:39 WBC RBC Hgb Hct MCV MCH MCHC RDW Plt Count MPV PT with INR INR PTT (Actin FS) Sodium Potassium Chloride Carbon Dioxide Anion Gap BUN Creatinine Est GFR (CKD-EPI)AfAm Est GFR (CKD-EPI)NonAf POC Glucometer 276 283 171 Random Glucose Calcium Total Bilirubin Direct Bilirubin AST ALT Alkaline Phosphatase Total Protein Albumin 06/07/19 06/07/19 06/07/19 07:38 07:38 07:38 WBC 3.4 L RBC 3.40 L Hgb 12.5 Hct 34.8 L MCV 102.5 H MCH 36.8 H MCHC 35.9 RDW 14.4 Plt Count 46 L MPV 7.9 D PT with INR 18.90 H INR 1.59 H PTT (Actin FS) 36.0 Sodium 139 Potassium 3.0 L Chloride 105 Carbon Dioxide 26 Anion Gap 8 BUN 7.2 Creatinine 0.6 Est GFR (CKD-EPI)AfAm 120.58 Est GFR (CKD-EPI)NonAf 104.04 POC Glucometer Random Glucose 161 H Calcium 8.0 L Total Bilirubin 4.2 H Direct Bilirubin 1.3 H AST 66 H ALT 45 Alkaline Phosphatase 139 H Total Protein 6.0 L Albumin 2.4 L 06/07/19 11:24 WBC RBC Hgb Hct MCV MCH MCHC RDW Plt Count MPV PT with INR INR PTT (Actin FS) Sodium Potassium Chloride Carbon Dioxide Anion Gap BUN Creatinine Est GFR (CKD-EPI)AfAm Est GFR (CKD-EPI)NonAf POC Glucometer 240 Random Glucose Calcium Total Bilirubin Direct Bilirubin AST ALT Alkaline Phosphatase Total Protein Albumin Active Medications Generic Name Dose Route Start Last Admin Trade Name Freq PRN Reason Stop Dose Admin Folic Acid 1 mg 06/05/19 10:00 06/07/19 11:14 Folic Acid - PO 1 mg DAILY DIEGO Administration Lactated Ringer's 1,000 ml in 1,000 mls @ 75 mls/hr 06/05/19 02:45 06/07/19 05:22 Lactated Ringers Solution IV 75 mls/hr ASDIR DIEGO Administration Insulin Aspart 1 vial 06/05/19 07:00 06/07/19 11:31 Novolog Vial Sliding Scale - SQ 4 unit ACHS DIEGO Administration Protocol Lactulose 20 gm 06/06/19 15:42 Cephulac (Oral Use) PO QID PRN CONSTIPATION Lorazepam 0.5 mg 06/07/19 07:43 Ativan - PO Q4H PRN AGITATION Multivitamins/Minerals/Vitamin C 1 tab 06/05/19 10:00 06/07/19 11:16 Tab-A-Vit - PO 1 tab DAILY DIEGO Administration Nadolol 40 mg 06/05/19 10:00 06/07/19 11:16 Corgard - PO 40 mg DAILY DIEGO Administration Pantoprazole Sodium 40 mg 06/05/19 18:15 06/07/19 11:14 Protonix Iv IVPUSH 40 mg DAILY DIEGO Administration Potassium Chloride 40 meq 06/08/19 10:00 K-Dur - PO 06/08/19 10:01 ONCE ONE Prochlorperazine Edisylate 5 mg 06/05/19 02:44 06/05/19 02:53 Compazine Injection - IM 5 mg Q6H PRN Administration NAUSEA AND/OR VOMITING Rifaximin 550 mg 06/05/19 10:00 06/07/19 11:16 Xifaxan - PO 550 mg BID DIEGO Administration Thiamine HCl 250 mg 06/06/19 02:00 06/07/19 11:14 Vitamin B1 Injection - IVPB 06/08/19 18:01 250 mg Q8H-IV DIEGO Administration ASSESSMENT/PLAN: Jeremi Tolliver is a 68 year old male with a past medical history of CAD (s/p 2 stents), HTN, HLD, DM, cirrhosis with varices, alcohol use disorder who presented with chest pain of 2 day duration admitted for alcohol withdrawal and chest pain. Alcohol Withdrawal - Ativan prn to avoid further lethargy. No standing doses - seizure, fall, dysphagia precautions - neurochecks - consult addiction medicine, recs appreciated, can be referred for rehabilitation but has poor insight into disorder - banana bag given - supplement thiamine, folate, MVI, magnesium - hydrate LR at 75cc/hr - compazine for nausea, avoid QTc prolonging agents - earlier CT head with no acute pathology - Physical therapy, recommending strength training Chest Pain - EKG showing sinus tach, age indeterminate inferior infarct, no acute ST changes - troponins x3 negative - repeat EKG unchanged - echo showing normal LV, normal EF 60-65%, mild aortic sclerosis - cardiology consulted, recs appreciated - defer further cardiac testing until patient stabilized - CXR showing no acute pathology Hx of cirrhosis - lactulose 20gm PO qid, titrate for 3-5 bowel movements, patient has been having bowel movements - rifaximin 550mg tid - LR @ 75cc/hr to maintain adequate hydration in setting of patient's poor oral intake and lactulose administration - monitor volume status - neurochecks - ammonia 63, patient not AOx3, continue to monitor - 01/05 RUQ US showing atrophic cirrhotic liver - elevated bilirubin, AST, PT/PTT/INR likely in setting of cirrhosis, improving - daily LFTs, INR, PTT - blood culture pending, urine culture - RUQ U/S showing patent main portal vein, cirrhosis, splenomegy, no gallstones , DM - hold home meds - BGM - ISS ACHS Hx of CAD with stents - patient noted he was on Plavix, unable to confirm with pharmacy, hold in setting of low platelets - currently thrombocytopenic, chronic, restart as per cardiology Thrombocytopenia - Plts 46, chronically low - likely in setting of cirrhosis - monitor for bleeding HTN - pharmacy called and noted that patient had last picked up nadalol 30mg daily in December - will restart nadolol 30mg, and adjust as per cardiology FEN - LR at 75cc/hr - continue to monitor electrolytes and replete as necessary, hypokalemia noted and repleted - clear liquids Prophylaxis - avoid chemical AC due to thrombocytopenia, SCDs questionable as they may also cause damage to blood vessels in setting of thrombocytopenia - early ambulation Dispo - continue to monitor on Med-surg Visit type - Emergency Visit Emergency Visit: Yes ED Registration Date: 06/05/19 Care time: The patient presented to the Emergency Department on the above date and was hospitalized for further evaluation of their emergent condition. - New Patient This patient is new to me today: No - Critical Care Critical Care patient: No
--- NOTE | 2019-06-07 14:32 | CONSULT ---
Consult Detox [facility] Reason for Current Admission/Consult: Requested to see patient by resident due to alcohol use disorder Referred by:: inga daniel - History History of Present Illness: Jeremi Tolliver is a 68 year old male with a past medical history of CAD (s/p 2 stents), HTN, HLD, DM, cirrhosis with varices, alcohol use disorder who presented with chest pain of 2 day duration. Patient was previously seen in the ED less than 1 day prior for similar symptoms at which time the patient was also tachycardic and hypertensive. The patient at the time wanted to sign out AMA and left the ED in stable condition. Patient now presented with similar symptoms but was increasingly weak and lethargic. He noted that the chest pain started 2 days prior, is intermittent, encompases the left side of his chest with radiation to the shoulder, arm, abdomen. Endorses numbness, tingling of the arm and face, nausea with dry heaves, mild shortness of breath. At its worst , the chest pain is rated 10/10, at the time of interview was 9/10. Denied alleviating or remitting factors. Denied worsening of pain with food or exercise. Denied inciting factors of pain at the time of first presentation. Endorses a non-productive cough. Patient denies recent sick contacts, travel, illnesses. Denies symptoms of fever, chills, dysuria, hematuria, diarrhea, constipation, focal weakness, visual changes, headaches. Patient denies alcohol use today. Denies history of seizures or DTs. Arriving from home. On previous visit less than 24 hours prior patient had elevated alcohol level. Patient seen at bedside and was in bed with restraints. However, he was able to respond and was alert and oriented to person and place. He denies having an issue with alcohol. He stated that his alcohol uses is not that frequent. He states he drinks 1-2 glasses of wine about twice a month. However, the spouse had given information that he is using much more than that and on a daily basis. 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 He was answering questions appropriately but very slowly. Patient is not a good historian. He was under restraints and has a IV in right antecubital fossae. CIWA Score - CIWA Score Nausea/Vomitin-Mild Nausea/No Vomiting Muscle Tremors: 1-None Visible, but Harvey Anxiety: 1-Mildly Anxious Agitation: 1-Slight > Activity Paroxysmal Sweats: 1-Minimal Palms Moist Orientation: 1-Uncertain about Date Tacttile Disturbances: 1-Very Mild Itch/Numbness Auditory Disturbances: 0-None Visual Disturbances: 0-None Headache: 0-None Present CIWA-Ar Total Score: 7 Assessment Plan - Plan Plan: 1. Alcohol Withdrawal - CIWA 7 now - continue Ativan withdrawal protocol in setting of patient's cirrhosis - when completion of detox protocol, he can be referred for rehabilitation - however, patient does not want to avail himself of such services as his insight into his illness is poor at this time. - if he wishes to do so in the future, he can enter rehabilitation for the alcohol use disorder. Chest Pain - follow up with cardiology consult and their recommendations. Hx of cirrhosis - lactulose 20gm PO tid - rifaximin 550mg tid - LR @ 75cc/hr to maintain adequate hydration in setting of patient's poor oral intake and lactulose administration - monitor volume status - neurochecks - ammonia 63, patient not AOx3, not appearing to be in hepatic encephalopathy, continue to monitor - 01/05 RUQ US showing atrophic cirrhotic liver - elevated bilirubin, AST, likely in setting of cirrhosis DM - proper coverage and insulin scale - continue diabetic diet - education by nursing and educate spouse Hx of CAD with stents - patient noted he was on Plavix, unable to confirm with pharmacy - currently thrombocytopenic, chronic, restart as per cardiology Thrombocytopenia - Plts 46, chronic - likely in setting of cirrhosis and chronic alcoholism - monitor for bleedings HTN - continue meds as per medicine Dr. Carrillo - Medication Detox Regimen/Protocol: Not Applicable (continue and complete ativan detox protocol)
--- NOTE | 2019-06-07 15:03 | PN ---
Progress Note, Physician Chief Complaint: Pt alert; denies having a drinking problem; says he was seen in a hospital in [facility], and told he had no trouble with his liver. Denies personal or family hx of heart trouble (but has hx coronary stents). History of Present Illness: The patient is a 68 year old male (b. Naz[place]), with a significant PMH of CAD s/p stents (? after + stress MIBI in 2017), HTN, DM, HLD, cirrhosis with varices, and ETOH abuse who presents to the emergency department for 3 days of chest pain. Pt was seen here in the ED this morning for exact symptoms, both troponin's were negative and pt was d/c home. Pt denies drinking alcohol, however, pt alcohol level from this morning was in the 290s. Patient describes the chest pain as sharp, pressure, non radiating, localized in the left chest wall. Pt denies any aggravating or relieving factors. Pt kept complaining of chest pain at home, so at bedside brought him back. Pt denies SOB, fevers, coughs, chills, nausea/vomiting/diarrhea, abdominal pain. Denies dysuria, frequency, urgency and hematuria. Allergies: NKDA - Current Medication List Current Medications: Active Medications Folic Acid (Folic Acid -) 1 mg PO DAILY [facility] Last Admin: 06/07/19 11:14 Dose: 1 mg Lactated Ringer's (Lactated Ringers Solution) 1,000 ml in 1,000 mls @ 75 mls/ hr IV ASDIR [facility] Last Admin: 06/07/19 05:22 Dose: 75 mls/hr Insulin Aspart (Novolog Vial Sliding Scale -) 1 vial SQ ACHS [facility]; Protocol Last Admin: 06/07/19 11:31 Dose: 4 unit Lactulose (Cephulac (Oral Use)) 20 gm PO QID PRN PRN Reason: CONSTIPATION Lorazepam (Ativan -) 0.5 mg PO Q4H PRN PRN Reason: AGITATION Multivitamins/Minerals/Vitamin C (Tab-A-Vit -) 1 tab PO DAILY [facility] Last Admin: 06/07/19 11:16 Dose: 1 tab Nadolol (Corgard -) 40 mg PO DAILY [facility] Last Admin: 06/07/19 11:16 Dose: 40 mg Pantoprazole Sodium (Protonix Iv) 40 mg IVPUSH DAILY [facility] Last Admin: 06/07/19 11:14 Dose: 40 mg Potassium Chloride (K-Dur -) 40 meq PO ONCE ONE Stop: 06/08/19 10:01 Prochlorperazine Edisylate (Compazine Injection -) 5 mg IM Q6H PRN PRN Reason: NAUSEA AND/OR VOMITING Last Admin: 06/05/19 02:53 Dose: 5 mg Rifaximin (Xifaxan -) 550 mg PO BID [facility] Last Admin: 06/07/19 11:16 Dose: 550 mg Thiamine HCl (Vitamin B1 Injection -) 250 mg IVPB Q8H-IV [facility] Stop: 06/08/19 18:01 Last Admin: 06/07/19 11:14 Dose: 250 mg - Objective Vital Signs: Vital Signs Temperature 98.0 F 06/07/19 09:00 Pulse Rate 96 H 06/07/19 09:00 Respiratory Rate 20 06/07/19 09:00 Blood Pressure 151/84 06/07/19 09:00 O2 Sat by Pulse Oximetry (%) 97 06/07/19 09:00 Constitutional: Yes: Thin HENT: Yes: WNL Neck: Yes: WNL Cardiovascular: Yes: S1, S2, S4 Labs: CBC, BMP 06/07/19 07:38 06/07/19 07:38 INR, PTT INR 1.59 (0.83-1.09) H 06/07/19 07:38 Problem List - Problems (1) Acute on chronic alcoholic liver disease Assessment/Plan: Deox protocol. Poor prognosis without intervention. Code(s): K70.9 - ALCOHOLIC LIVER DISEASE, UNSPECIFIED (2) HTN (hypertension) Code(s): I10 - ESSENTIAL (PRIMARY) HYPERTENSION (3) Hypercholesterolemia Code(s): E78.00 - PURE HYPERCHOLESTEROLEMIA, UNSPECIFIED (4) Hepatitis A antibody positive Code(s): R76.8 - OTHER SPECIFIED ABNORMAL IMMUNOLOGICAL FINDINGS IN SERUM (5) Hepatitis B antibody positive Code(s): R76.8 - OTHER SPECIFIED ABNORMAL IMMUNOLOGICAL FINDINGS IN SERUM (6) Pancytopenia Code(s): D61.818 - OTHER PANCYTOPENIA
[2019-06-07] MEDS ORDERED: LACTATED RINGERS SOLUTION 1,000 ML/1,000 ML INFUS.BAG IV SCH (15:08)
--- NOTE | 2019-06-07 15:10 | PN ---
Teaching Attending Note Name of Resident: Cuong Coburn ATTENDING PHYSICIAN STATEMENT I saw and evaluated the patient. I reviewed the resident's note and discussed the case with the resident. I agree with the resident's findings and plan as documented with exceptions below. SUBJECTIVE: Patient seen and examined. more awake, denies any pain or complaints, wanting to go home. OBJECTIVE: Vital Signs Period Temp Pulse Resp BP Sys/Argueta Pulse Ox Last 24 Hr 97.8 F-98.6 F 89-97 18-26 145-157/81-93 95-97 Intake & Output 06/04/19 06/05/19 06/06/19 06/07/19 23:59 23:59 23:59 23:59 Intake Total 400 2610 1725 Balance 400 2610 1725 Weight 145 lb 129 lb 149 lb General: lying in bed, more awake, interactive HEENT: dry mucous membrane Neck: soft, supple Chest: poor effort Abdomen: soft, NT, throughout, ND, pos bowel sounds Extremities: no edema or asterexis Home Medications Medication Instructions Recorded Insulin (Levemir) [Levemir Flexpen 35 units SQ HS 05/25/17 -] Insulin (Levemir) [Levemir Flexpen 50 units SQ BID 05/26/17 -] Lactulose (Oral Use) [Cephulac -] 20 gm PO TID #180 gm 01/06/19 Nadolol 40 mg PO DAILY 06/05/19 Active Medications Folic Acid (Folic Acid -) 1 mg PO DAILY [facility] Last Admin: 06/07/19 11:14 Dose: 1 mg Lactated Ringer's (Lactated Ringers Solution) 1,000 ml in 1,000 mls @ 42 mls/ hr IV ASDIR [facility] Insulin Aspart (Novolog Vial Sliding Scale -) 1 vial SQ [facility]; Protocol Last Admin: 06/07/19 11:31 Dose: 4 unit Lactulose (Cephulac (Oral Use)) 20 gm PO QID PRN PRN Reason: CONSTIPATION Lorazepam (Ativan -) 0.5 mg PO Q4H PRN PRN Reason: AGITATION Multivitamins/Minerals/Vitamin C (Tab-A-Vit -) 1 tab PO DAILY [facility] Last Admin: 06/07/19 11:16 Dose: 1 tab Nadolol (Corgard -) 40 mg PO DAILY [facility] Last Admin: 06/07/19 11:16 Dose: 40 mg Pantoprazole Sodium (Protonix Iv) 40 mg IVPUSH DAILY [facility] Last Admin: 06/07/19 11:14 Dose: 40 mg Potassium Chloride (K-Dur -) 40 meq PO ONCE ONE Stop: 06/08/19 10:01 Prochlorperazine Edisylate (Compazine Injection -) 5 mg IM Q6H PRN PRN Reason: NAUSEA AND/OR VOMITING Last Admin: 06/05/19 02:53 Dose: 5 mg Rifaximin (Xifaxan -) 550 mg PO BID [facility] Last Admin: 06/07/19 11:16 Dose: 550 mg Thiamine HCl (Vitamin B1 Injection -) 250 mg IVPB Q8H-IV [facility] Stop: 06/08/19 18:01 Last Admin: 06/07/19 11:14 Dose: 250 mg Laboratory Results - last 24 hr 06/06/19 06/06/19 06/07/19 17:51 21:09 05:39 WBC RBC Hgb Hct MCV MCH MCHC RDW Plt Count MPV PT with INR INR PTT (Actin FS) Sodium Potassium Chloride Carbon Dioxide Anion Gap BUN Creatinine Est GFR (CKD-EPI)AfAm Est GFR (CKD-EPI)NonAf POC Glucometer 276 283 171 Random Glucose Calcium Total Bilirubin Direct Bilirubin AST ALT Alkaline Phosphatase Total Protein Albumin 06/07/19 06/07/19 06/07/19 07:38 07:38 07:38 WBC 3.4 L RBC 3.40 L Hgb 12.5 Hct 34.8 L MCV 102.5 H MCH 36.8 H MCHC 35.9 RDW 14.4 Plt Count 46 L MPV 7.9 D PT with INR 18.90 H INR 1.59 H PTT (Actin FS) 36.0 Sodium 139 Potassium 3.0 L Chloride 105 Carbon Dioxide 26 Anion Gap 8 BUN 7.2 Creatinine 0.6 Est GFR (CKD-EPI)AfAm 120.58 Est GFR (CKD-EPI)NonAf 104.04 POC Glucometer Random Glucose 161 H Calcium 8.0 L Total Bilirubin 4.2 H Direct Bilirubin 1.3 H AST 66 H ALT 45 Alkaline Phosphatase 139 H Total Protein 6.0 L Albumin 2.4 L 06/07/19 11:24 WBC RBC Hgb Hct MCV MCH MCHC RDW Plt Count MPV PT with INR INR PTT (Actin FS) Sodium Potassium Chloride Carbon Dioxide Anion Gap BUN Creatinine Est GFR (CKD-EPI)AfAm Est GFR (CKD-EPI)NonAf POC Glucometer 240 Random Glucose Calcium Total Bilirubin Direct Bilirubin AST ALT Alkaline Phosphatase Total Protein Albumin Abdominal US results noted ASSESSMENT AND PLAN: 68 yom with PMhx of ETOH abuse, alcoholic cirrhosis, hepatic encephalopthy, esophageal varices Grade I on prior EKG, CAD s/p last reported PCI 2004, last stress test 05/2018 with moderate reversible ischemia, IDDM, HTN, HLD admitted with acute decompensated hepatic cirrhosis from ongoing alcohol abuse -Acute decompensated hepatic cirrhosis from ongoing ETOH abuse -AMS, suspect toxic metabolic encephalopathy from Alcohol withdrawal/DTs+/- hepatic encephalopathy -Suspected alcoholic hepatitis -Chest pain -Grade I esophageal cirrhosis -ETOH abuse/dependence -CAD s/p PCI x2 2004, abnormal stress test 05/2018 -Macrocytosis -Thrombocytopenia -IDDM -HTN -HLD -Dilated ventricles suspect from cerebral atrophy related to long standing ETOH use, rather than NPH Plan: More awake, change ativan to prn. Daily LFTs/coags Daily LFTs/coags MELD 17. DF 45. LFts with some improvement, GI input noted monitor off steroids Infection screen neg so far. Follow up final cultures Abdominal US noted, no ascitis. Decompensation suspect from ongoing ETOH use. lactulose PO or NJ as able to titrate for 2-3 loose BM/day. Continue rifaximin/nadolol as able to take PO. Decrease IVF. Cardiology input noted. ACS ruled out. 2D echo noted Conservative management till active alcohol concerns ruled out. Hold oral hypoglycemics, ISS. Resume levemir at 5 units BID. Neurology input noted. MVI/Folate/thiamine. s/p banana bag. Detox input noted. DVTPPX scds given thrombocytopenia GIPPx dispo patient with poor insight into his ETOH use and overall medical condition. PT eval, OOB as improves. Less likely will agree to SNF or drug rehab, will continue to address. dispo planning in 48 hours.
[2019-06-07 17:19] LABS: EPI CELLS 0 /HPF (0-5/HPF); HYALINE CASTS 0 /lpf (0-8); PH,URINE 7.5 (5.0-8.0); URINE APPEARANCE CLEAR; URINE BACTERIA 0.5 /hpf (NEGATIVE); URINE BILIRUBIN NEGATIVE (NEGATIVE); URINE COLOR YELLOW; URINE GLUCOSE (UA) 3+ (NEGATIVE); URINE KETONE NEGATIVE (NEGATIVE); URINE LEUK ESTERASE NEGATIVE (NEGATIVE); URINE NITRITE NEGATIVE (NEGATIVE); URINE PROTEIN NEGATIVE (NEGATIVE); URINE RBC 15 /hpf (0-4); URINE UROBILINOGEN 4.0 E.U/dl mg/dL (0.2-1.0); URINE WBC 1 /hpf (0-5)
--- NOTE | 2019-06-07 19:03 | PN.GI ---
GI Progress Note Subjective: No acute events Abd US: fatty liver, no tumor, no portal vein thrombus, no dilated biliary ducts No abdominal pain Did not receive any lactulose today - Objective Vital Signs: Vital Signs Temperature 98.2 F 06/07/19 13:00 Pulse Rate 74 06/07/19 13:00 Respiratory Rate 20 06/07/19 13:00 Blood Pressure 152/87 06/07/19 13:00 O2 Sat by Pulse Oximetry (%) 97 06/07/19 09:00 Constitutional: Calm Eyes: No: Sclera Icterus Cardiovascular: Yes: Regular Rate and Rhythm Respiratory: Yes: CTA Bilaterally Gastrointestinal Inspection: No: Distention ...Auscultate: Yes: Normoactive Bowel Sounds ...Palpate: Yes: Soft. No: Hepatomegaly, Splenomegaly, Tenderness ...Percussion: No: Tympanitic Neurological: Yes: Alert, Oriented (x person, place, partially to time). No: [facility] Labs: CBC, BMP 06/07/19 07:38 06/07/19 07:38 INR, PTT INR 1.59 (0.83-1.09) H 06/07/19 07:38 Hepatic Panel Total Bilirubin 4.2 mg/dL (0.2-1) H 06/07/19 07:38 Direct Bilirubin 1.3 mg/dL (0.0-0.2) H 06/07/19 07:38 AST 66 U/L (15-37) H 06/07/19 07:38 ALT 45 U/L (13-61) 06/07/19 07:38 Alkaline Phosphatase 139 U/L (45-117) H 06/07/19 07:38 Albumin 2.4 g/dl (3.4-5.0) L 06/07/19 07:38 - ....Imaging Ultrasound: Report Reviewed Problem List - Problems (1) Acute on chronic alcoholic liver disease Assessment/Plan: Rise in bilirubin I suspect, is related to ongoing alcohol binge. Continue lactulose. Did not receive any today. Lactulose should be ordered as a standing medication, not PRN in setting of suspected HE On withdrawal regimen Fall precautions Monitor LFTs Follows at [facility] per his regarding his liver disease. will need clarification of this and follow-up arranged. Code(s): K70.9 - ALCOHOLIC LIVER DISEASE, UNSPECIFIED
[2019-06-07 19:15] VITALS: BP 144/81; PULSE 75; TEMP 97.8
[2019-06-07] MEDS ORDERED: LACTULOSE 20 GM/30 ML UDC (FOR ORAL USE ONLY) PO SCH (22:00)
[2019-06-07] MEDS ORDERED: INSULIN (LEVEMIR) 100 UNITS/ML UNITS SQ SCH (22:00)
[2019-06-08] MEDS ORDERED: LORazepam 0.5 MG TABLET PO ONE (05:00)
--- NOTE | 2019-06-08 08:44 | DS ---
Physical Exam: SUBJECTIVE: Patient signed out against medical advice overnight. Patient was deemed to be alert and oriented x3 by the night residents. who was noted to be at the bedside agreed to take the patient home. Both the patient and the signed AMA form and left the hospital. OBJECTIVE: Vital Signs Period Temp Pulse Resp BP Sys/Argueta Pulse Ox Last 24 Hr 97.8 F-98.2 F 74-96 20-20 144-152/81-87 97 PHYSICAL EXAM Patient was not seen as has signed out against medical advice overnight. LABS Laboratory Results - last 24 hr 06/06/19 06/07/19 06/07/19 16:03 07:38 07:38 PT with INR 18.90 H INR 1.59 H PTT (Actin FS) 36.0 Sodium 139 Potassium 3.0 L Chloride 105 Carbon Dioxide 26 Anion Gap 8 BUN 7.2 Creatinine 0.6 Est GFR (CKD-EPI)AfAm 120.58 Est GFR (CKD-EPI)NonAf 104.04 POC Glucometer Random Glucose 161 H Calcium 8.0 L Total Bilirubin 4.2 H Direct Bilirubin 1.3 H AST 66 H ALT 45 Alkaline Phosphatase 139 H Total Protein 6.0 L Albumin 2.4 L Urine Color Yellow Urine Appearance Clear Urine pH 7.5 D Ur Specific [place] 1.024 Urine Protein Negative Urine Glucose (UA) 3+ H Urine Ketones Negative Urine Blood Trace Urine Nitrite Negative Urine Bilirubin Negative Urine Urobilinogen 4.0 e.u/dl Ur Leukocyte Esterase Negative Urine WBC (Auto) 1 Urine RBC (Auto) 15 Urine Casts (Auto) 0 U Epithel Cells (Auto) 0 Urine Bacteria (Auto) 0.5 06/07/19 06/07/19 11:24 16:32 PT with INR INR PTT (Actin FS) Sodium Potassium Chloride Carbon Dioxide Anion Gap BUN Creatinine Est GFR (CKD-EPI)AfAm Est GFR (CKD-EPI)NonAf POC Glucometer 240 334 Random Glucose Calcium Total Bilirubin Direct Bilirubin AST ALT Alkaline Phosphatase Total Protein Albumin Urine Color Urine Appearance Urine pH Ur Specific [place] Urine Protein Urine Glucose (UA) Urine Ketones Urine Blood Urine Nitrite Urine Bilirubin Urine Urobilinogen Ur Leukocyte Esterase Urine WBC (Auto) Urine RBC (Auto) Urine Casts (Auto) U Epithel Cells (Auto) Urine Bacteria (Auto) HOSPITAL COURSE: Jeremi Tolliver is a 68 year old male with a past medical history of CAD (s/p 2 stents), HTN, HLD, DM, cirrhosis with varices, alcohol use disorder who presented with chest pain of 2 day duration admitted for alcohol withdrawal and chest pain. Patient was admitted and started on Ativan withdrawal protocol due to history of liver cirrhosis. Patient was given vitamin supplementation and hydration. CT from previous ED visit was without any acute pathology. Ativan taper was slowed when patient began to develop increasing lethargy and by time of discharge did not have any signs of withdrawal. Patient was seen for chest pain, had negative troponins, no acute changes on EKG. Patient was seen by cardiology who recommended echocardiogram, consideration of BROOK/ARB, and hold off on any cardiac testing pending improvement of mental status. Echo was done which showed normal LV, normal EF 60-65%, mild aortic sclerosis. Patient was placed on lactulose and rifaximin while in the hospital and had multiple bowel movements while in the hospital and had improvement of his mental status. He continued to be hydrated. LFTs and biluribin were improving by time of AMA. Patient had RUQ U/S which showed patent main portal vein, cirrhosis, splenomegaly, no gallstones. Patient follows up at [facility] for his liver disease. Patient had thrombocytopenia, likely from liver disease and ongoing alcohol abuse. No signs of bleeding while hospitalized. Patient wanted to sign out against medical advice once his mental status improved. Patient was counseled on the importance of staying and completing treatment by the night team. Patient insisted on leaving in the care of his who agreed to take the patient home. The patient was advised heavily to follow up with his primary care physician, fender mechanic, deputy juvenile officer. Patient was advised to cease drinking. Patient left the hospital in the care of his . Date of Admission:06/05/19 Date of Discharge: 06/08/19 Minutes to complete discharge: 35 Discharge Summary Problems reviewed: Yes Reason For Visit: ALCOHOL WITHDRAWL SYNDROME Condition: Improved - Instructions Diet, Activity, Other Instructions: Patient signed out against medical advice. Patient was advised to follow up with his primary care physician, fender mechanic, and deputy juvenile officer. Patient was advised to stop drinking. Referrals: Damián Hameed [Other] - 1 Week Suman Yancey MD [Staff Physician] - 1 Week Javed Contreras MD [Staff Physician] - 1 Week Disposition: AGAINST MEDICAL ADVICE - Home Medications Comprehensive Discharge Medication List: Ambulatory Orders Insulin (Levemir) [Levemir Flexpen -] 35 units SQ HS 05/25/17 Insulin (Levemir) [Levemir Flexpen -] 50 units SQ BID 05/26/17 Lactulose (Oral Use) [Cephulac -] 20 gm PO TID #180 gm 01/06/19 Nadolol 40 mg PO DAILY 06/05/19 Problem List - Problems (1) Abdominal pain Code(s): R10.9 - UNSPECIFIED ABDOMINAL PAIN (2) Acute on chronic alcoholic liver disease Code(s): K70.9 - ALCOHOLIC LIVER DISEASE, UNSPECIFIED (3) Alcohol dependence Code(s): F10.20 - ALCOHOL DEPENDENCE, UNCOMPLICATED (4) Chest pain Code(s): R07.9 - CHEST PAIN, UNSPECIFIED Qualifiers: (5) ETOH abuse Code(s): F10.10 - ALCOHOL ABUSE, UNCOMPLICATED (6) Elevated LFTs Code(s): R94.5 - ABNORMAL RESULTS OF LIVER FUNCTION STUDIES (7) H/O heart artery stent Code(s): Z95.5 - PRESENCE OF CORONARY ANGIOPLASTY IMPLANT AND GRAFT (8) HTN (hypertension) Code(s): I10 - ESSENTIAL (PRIMARY) HYPERTENSION (9) Hepatic encephalopathy Code(s): K72.90 - HEPATIC FAILURE, UNSPECIFIED WITHOUT COMA (10) Hyperammonemia Code(s): E72.20 - DISORDER OF UREA CYCLE METABOLISM, UNSPECIFIED (11) Hypercholesterolemia Code(s): E78.00 - PURE HYPERCHOLESTEROLEMIA, UNSPECIFIED (12) Liver cirrhosis Code(s): K74.60 - UNSPECIFIED CIRRHOSIS OF LIVER Qualifiers: Hepatic cirrhosis type: alcoholic cirrhosis Ascites presence: unspecified Qualified Code(s): K70.30 - Alcoholic cirrhosis of liver without ascites (13) Thrombocytopenia Code(s): D69.6 - THROMBOCYTOPENIA, UNSPECIFIED This patient is new to me today: No Emergency Visit: Yes ED Registration Date: 06/05/19 Care time: The patient presented to the Emergency Department on the above date and was hospitalized for further evaluation of their emergent condition. Critical Care patient: No - Discharge Referral Referred to [facility] Med P.C.: No
[2019-06-08] MEDS ORDERED: POTASSIUM CHLORIDE TABS 10 MEQ TABLET.ER (FP) PO ONE (10:00)
== END 2019-06-07 19:48 | disposition left against medical advice (07) | DRG 894 ==
LOC: JER 20:49 → JERBED 06-05 00:38 → J5S 06-05 22:13
PROVIDERS: ADMIT Internal Medicine; ATTEND Hospitalist
DX: F10.239 Alcohol dependence with withdrawal, unspecified (principal); G93.41 Metabolic encephalopathy; D61.818 Other pancytopenia; B17.9 Acute viral hepatitis, unspecified; M62.82 Rhabdomyolysis; K72.90 Hepatic failure, unspecified without coma; K70.30 Alcoholic cirrhosis of liver without ascites; F10.229 Alcohol dependence with intoxication, unspecified; K76.0 Fatty (change of) liver, not elsewhere classified; I25.10 Atherosclerotic heart disease of native coronary artery without angina pectoris; Z98.61 Coronary angioplasty status; E78.5 Hyperlipidemia, unspecified; D69.6 Thrombocytopenia, unspecified; D75.89 Other specified diseases of blood and blood-forming organs; E11.40 Type 2 diabetes mellitus with diabetic neuropathy, unspecified; E11.65 Type 2 diabetes mellitus with hyperglycemia; E88.09 Other disorders of plasma-protein metabolism, not elsewhere classified; D72.819 Decreased white blood cell count, unspecified; E83.42 Hypomagnesemia; R07.89 Other chest pain
CPT/HCPCS: 36415; 70450-TC; 71045-TC-FY; 76700-TC; 80053; 80061; 80307; 81003; 82140; 82248; 82550; 82553; 82607; 82962; 83036; 83721; 83735; 83880; 84100; 84443; 84484; 85025; 85027; 85610; 85730; 87040; 87086; 93005; 93010; 93306-TC; 97116-GP; 97161-GP; 99285-25; J7030

== ENCOUNTER 2021-03-29 20:55 | Inpatient (IN) | payer OTHER, BC ==
[2021-03-29 21:00] VITALS: BMI 22.0
[2021-03-29] MEDS ORDERED: chlordiazePOXIDE HCL 25 MG CAPSULE PO ONE (22:28)
[2021-03-29 23:14] LABS: VENOUS BASE EXCESS -2.8 mmol/L (-2-2); VENOUS PCO2 38.9 mmHg (38-52); VENOUS PH 7.37 (7.310-7.410)
[2021-03-29 23:18] LABS: BASO % 0.6 % (0-2.0); EOS % 0.8 % (0-4.5); HEMATOCRIT 36.7 % (35.4-49); LYMPH % 28.9 % (8-40); MCHC 35.5 g/dl (32.0-35.9); MEAN CELL VOLUME 101.4 fl (80-96); MEAN PLT VOLUME 8.2 fl (7.5-11.1); MONO % 10.2 % (3.8-10.2); NEUT % 59.5 % (42.8-82.8); PLATELET COUNT 48 10^3/uL (134-434); RBC 3.61 M/mm3 (4.00-5.60); RDW 14.1 % (11.9-15.9); WHITE BLOOD COUNT 2.4 K/mm3 (4.0-10.0)
[2021-03-29 23:27] LABS: EPI CELLS 5 /uL (0-25.1); HYALINE CASTS 9 /uL (0-3.1); URINE APPEARANCE CLEAR; URINE BACTERIA 6 /uL (0-1359); URINE BILIRUBIN NEGATIVE (NEGATIVE); URINE COLOR DK YELLOW; URINE GLUCOSE (UA) 3+ (NEGATIVE); URINE KETONE 1+ (NEGATIVE); URINE LEUK ESTERASE NEGATIVE (NEGATIVE); URINE NITRITE NEGATIVE (NEGATIVE); URINE PROTEIN 3+ (NEGATIVE); URINE RBC 10 /uL (0-23.9); URINE UROBILINOGEN 0.2 mg/dL (0.2-1.0); URINE WBC 9 /uL (0-25.8)
[2021-03-29 23:28] LABS: INR 1.09 (0.83-1.09); PROTHROMBIN TIME (PATIENT) 13.4 SEC (9.7-13.0)
[2021-03-29 23:30] LABS: ACTIVATED PTT 33.3 SECONDS (25.2-36.5)
[2021-03-29 23:44] LABS: CHLORIDE 105 mmol/L (98-107); SODIUM 142 mmol/L (136-145)
[2021-03-29 23:46] LABS: ALBUMIN 2.2 g/dl (3.4-5.0); ANION GAP 13 MMOL/L (8-16); BLOOD UREA NITROGEN 18.8 mg/dL (7-18); CALCIUM 8.8 mg/dL (8.5-10.1); CO2 24 mmol/L (21-32); GLUCOSE,RANDOM 159 mg/dL (74-106)
[2021-03-29 23:49] LABS: CREATININE 0.9 mg/dL (0.55-1.3); SGOT/AST 92 U/L (15-37); SGPT/ALT 50 U/L (13-61)
[2021-03-29 23:51] LABS: BILIRUBIN,TOTAL 2.4 mg/dL (0.2-1)
[2021-03-29 23:52] LABS: ALK PHOS 126 U/L (45-117)
[2021-03-29 23:54] LABS: LACTIC ACID 9.2 mmol/L (0.4-2.0)
[2021-03-30] MEDS ORDERED: SODIUM CHLORIDE 0.9% 500 ML INFUS.BAG IV ONE (00:07)
[2021-03-30 01:21] LABS: MAGNESIUM 1.7 mg/dL (1.8-2.4)
[2021-03-30] MEDS ORDERED: LACTULOSE 20 GM/30 ML UDC (FOR ORAL USE ONLY) PO ONE (01:41)
[2021-03-30] MEDS ORDERED: LACTULOSE 20 GM/30 ML UDC (FOR ORAL USE ONLY) ONE (02:03)
[2021-03-30 03:59] LABS: LACTIC ACID 8.9 mmol/L (0.4-2.0)
[2021-03-30] MEDS ORDERED: LACTULOSE 20 GM/30 ML UDC (FOR ORAL USE ONLY) PO PRN ×2 (04:20→05:00)
[2021-03-30] MEDS ORDERED: MAGNESIUM OXIDE 400 MG TABLET (FP) PO ONE (04:28)
[2021-03-30] MEDS ORDERED: FOLIC ACID INJECTION - 1 MG, THIAMINE HCL 100 MG, MULTIVIT INJECTION ADULT 10 ML in SOD... IVPB ONE (04:32)
[2021-03-30] MEDS ORDERED: LORazepam 1 MG TABLET PO SCH ×2 (05:00→05:42)
[2021-03-30] MEDS ORDERED: LORazepam 1 MG TABLET PO PRN (05:01)
[2021-03-30] MEDS ORDERED: MAGNESIUM SULF 50% (8.12 MEQ/2 ML-1 GM VIAL) IVPB ONE (05:01)
[2021-03-30] MEDS ORDERED: MAGNESIUM SULFATE IN WATER 2 GM/50 ML IVPB IVPB ONE (05:29)
[2021-03-30] MEDS ORDERED: MAGNESIUM 1GM/D5W - 1 GM/100 ML IVPB IVPB ONE (05:31)
[2021-03-30] MEDS ORDERED: LORazepam 1 MG TABLET ONE (05:48)
[2021-03-30] MEDS: LORazepam 1 MG TABLET PO SCH ×4 (05:53→22:05)
[2021-03-30] MEDS ORDERED: HEPARIN NA (PORCINE) 5,000 UNITS/ML 1ML VIAL SQ SCH (06:00)
[2021-03-30 07:07] LABS: HEMOGLOBIN 12.5 GM/dL (11.7-16.9); MCH 36.4 pg (25.7-33.7); MCHC 35.7 g/dl (32.0-35.9); MEAN PLT VOLUME 8.5 fl (7.5-11.1); PLATELET COUNT 43 10^3/uL (134-434); RBC 3.44 M/mm3 (4.00-5.60); RDW 13.7 % (11.9-15.9); WHITE BLOOD COUNT 2.7 K/mm3 (4.0-10.0)
[2021-03-30 07:48] LABS: BLOOD UREA NITROGEN 19.2 mg/dL (7-18); CREATININE 0.7 mg/dL (0.55-1.3)
[2021-03-30 07:50] LABS: CALCIUM 8.5 mg/dL (8.5-10.1)
[2021-03-30 07:51] LABS: ALBUMIN 2.1 g/dl (3.4-5.0)
[2021-03-30 07:52] LABS: BILIRUBIN,TOTAL 2.7 mg/dL (0.2-1)
[2021-03-30] MEDS: INSULIN SLIDING SCALE (NOVOLOG) 1 VIAL SQ SCH ×4 (08:35→22:01)
[2021-03-30 08:47] LABS: PHOSPHOROUS 3.6 mg/dL (2.5-4.9)
[2021-03-30] MEDS: THIAMINE HCL 100 MG TABLET (FP) PO SCH ×2 (10:40→22:01)
[2021-03-30] MEDS: FOLIC ACID 1 MG TABLET (FP) PO SCH (10:40)
[2021-03-30] MEDS: RIFAXIMIN 550 MG TABLET PO SCH ×2 (10:40→22:05)
[2021-03-30 11:01] LABS: LACTIC ACID 8.8 mmol/L (0.4-2.0)
[2021-03-30] MEDS: SODIUM CHLORIDE 1,000 ML IV SCH (11:29)
[2021-03-30] MEDS ORDERED: SODIUM CHLORIDE 1,000 ML IV STA (12:27)
[2021-03-30] MEDS ORDERED: DEXTROSE 5%-WATER - 50 ML IVPB ONE (13:06)
[2021-03-30] MEDS ORDERED: cefTRIAXone SODIUM 1 GM VIAL ONE (13:06)
[2021-03-30] MEDS: CEFTRIAXONE 1 GM in DEXTROSE 5%-WATER - 50 ML IVPB SCH (13:12)
[2021-03-30] MEDS: NADOLOL 20 MG TABLET (FP) PO SCH (16:43)
[2021-03-30 20:45] LABS: LACTIC ACID 2.3 mmol/L (0.4-2.0)
[2021-03-31] MEDS: LORazepam 1 MG TABLET PO SCH ×2 (05:47→11:17)
[2021-03-31] MEDS: INSULIN SLIDING SCALE (NOVOLOG) 1 VIAL SQ SCH ×2 (06:04→11:22)
[2021-03-31] MEDS ORDERED: DEXTROSE 5%-WATER - 50 ML IVPB ONE (09:12)
[2021-03-31] MEDS ORDERED: cefTRIAXone SODIUM 1 GM VIAL ONE (09:12)
[2021-03-31] MEDS: NADOLOL 20 MG TABLET (FP) PO SCH (09:15)
[2021-03-31] MEDS: RIFAXIMIN 550 MG TABLET PO SCH (09:15)
[2021-03-31] MEDS: THIAMINE HCL 100 MG TABLET (FP) PO SCH (09:15)
[2021-03-31] MEDS: FOLIC ACID 1 MG TABLET (FP) PO SCH (09:15)
[2021-03-31] MEDS: SODIUM CHLORIDE 1,000 ML IV SCH ×2 (09:19→11:17)
[2021-03-31] MEDS: CEFTRIAXONE 1 GM in DEXTROSE 5%-WATER - 50 ML IVPB SCH (09:27)
[2021-03-31 09:56] LABS: BASO % 0.4 % (0-2.0); EOS % 2.3 % (0-4.5); HEMATOCRIT 32.1 % (35.4-49); HEMOGLOBIN 11.4 GM/dL (11.7-16.9); MCH 36.6 pg (25.7-33.7); MCHC 35.6 g/dl (32.0-35.9); MEAN CELL VOLUME 102.9 fl (80-96); MEAN PLT VOLUME 8.5 fl (7.5-11.1); MONO % 11.6 % (3.8-10.2); NEUT % 59.7 % (42.8-82.8); PLATELET COUNT 44 10^3/uL (134-434); RBC 3.11 M/mm3 (4.00-5.60); RDW 13.9 % (11.9-15.9); WHITE BLOOD COUNT 3.3 K/mm3 (4.0-10.0)
[2021-03-31 10:10] VITALS: BP 146/71; PULSE 65; TEMP 98.4
[2021-03-31 10:10] LABS: BLOOD UREA NITROGEN 17.5 mg/dL (7-18); CALCIUM 7.7 mg/dL (8.5-10.1); CO2 26 mmol/L (21-32); GLUCOSE,RANDOM 117 mg/dL (74-106)
[2021-03-31 10:11] LABS: MAGNESIUM 1.3 mg/dL (1.8-2.4)
[2021-03-31 10:13] LABS: CREATININE 0.6 mg/dL (0.55-1.3); SGOT/AST 74 U/L (15-37); SGPT/ALT 42 U/L (13-61)
[2021-03-31 10:14] LABS: BILIRUBIN,TOTAL 2.1 mg/dL (0.2-1)
[2021-03-31 11:45] LABS: ALBUMIN 1.7 g/dl (3.4-5.0); ALK PHOS 94 U/L (45-117); CHLORIDE 109 mmol/L (98-107); SODIUM 142 mmol/L (136-145)
[2021-03-31] MEDS ORDERED: MAGNESIUM OXIDE 400 MG TABLET (FP) PO ONE (12:48)
[2021-03-31] MEDS ORDERED: MAGNESIUM OXIDE 400 MG TABLET (FP) PO SCH (22:00)
[2021-04-01] MEDS ORDERED: LORazepam 0.5 MG TABLET PO PRN
[2021-04-01] MEDS ORDERED: LORazepam 0.5 MG TABLET PO SCH (05:00)
[2021-04-02] MEDS ORDERED: LORazepam 0.5 MG TABLET PO ONE (05:00)
== END 2021-03-31 16:05 | disposition left against medical advice (07) | DRG 894 ==
LOC: JER 20:55 → JERBED 03-30 03:14 → J6S 03-30 09:53
PROVIDERS: ADMIT Internal Medicine; ATTEND Nurse Practitioner Family
DX: F10.230 Alcohol dependence with withdrawal, uncomplicated (principal); K76.6 Portal hypertension; E87.2 Acidosis; D61.818 Other pancytopenia; I25.10 Atherosclerotic heart disease of native coronary artery without angina pectoris; K72.90 Hepatic failure, unspecified without coma; F10.27 Alcohol dependence with alcohol-induced persisting dementia; F10.220 Alcohol dependence with intoxication, uncomplicated; K70.30 Alcoholic cirrhosis of liver without ascites; I10 Essential (primary) hypertension; E78.5 Hyperlipidemia, unspecified; E11.9 Type 2 diabetes mellitus without complications; Z79.4 Long term (current) use of insulin; I44.7 Left bundle-branch block, unspecified; R16.1 Splenomegaly, not elsewhere classified; D75.89 Other specified diseases of blood and blood-forming organs; Z53.29 Procedure and treatment not carried out because of patient's decision for other reasons; F10.20 Alcohol dependence, uncomplicated; R94.5 Abnormal results of liver function studies
CPT/HCPCS: 36415; 70450-TC; 71045-TC-FY; 71260-TC; 72125-TC; 74177-TC; 80053; 80307; 81003; 82140; 82150; 82550; 82553; 82803; 82962; 83605; 83690; 83735; 84100; 84443; 84484; 85025; 85027; 85610; 85730; 86850; 86900; 86901; 87040; 87086; 93005; 93010; 99285-25; C9803; Q9967; U0003; U0005

== ENCOUNTER 2021-09-02 20:31 | Inpatient (IN) | payer OTHER, BC ==
[2021-09-02 20:50] VITALS: BMI 21.1
[2021-09-02] MEDS ORDERED: PANTOPRAZOLE SODIUM 80 MG in SODIUM CHLORIDE 100 ML IVPB SCH (22:00)
[2021-09-02 22:37] LABS: BASO % 0.2 % (0-2.0); EOS % 0.6 % (0-4.5); HEMATOCRIT 30.6 % (35.4-49); HEMOGLOBIN 10.5 GM/dL (11.7-16.9); LYMPH % 22.1 % (8-40); MCH 36.2 pg (25.7-33.7); MCHC 34.4 g/dl (32.0-35.9); MEAN CELL VOLUME 105.1 fl (80-96); MEAN PLT VOLUME 8.3 fl (7.5-11.1); NEUT % 69.1 % (42.8-82.8); PLATELET COUNT 69 10^3/uL (134-434); RBC 2.92 M/mm3 (4.00-5.60); RDW 14.2 % (11.9-15.9); WHITE BLOOD COUNT 4.6 K/mm3 (4.0-10.0)
[2021-09-02 22:44] LABS: INR 1.54 (0.83-1.09); PROTHROMBIN TIME (PATIENT) 17.8 SEC (9.7-13.0)
[2021-09-02 22:44] LABS: EPI CELLS 3 /uL (0-25.1); HYALINE CASTS 0 /uL (0-3.1); PH,URINE 7.5 (5.0-8.0); URINE APPEARANCE CLEAR; URINE BACTERIA 4 /uL (0-1359); URINE BILIRUBIN NEGATIVE (NEGATIVE); URINE COLOR YELLOW; URINE GLUCOSE (UA) 3+ (NEGATIVE); URINE KETONE 1+ (NEGATIVE); URINE LEUK ESTERASE NEGATIVE (NEGATIVE); URINE NITRITE NEGATIVE (NEGATIVE); URINE PROTEIN 2+ (NEGATIVE); URINE RBC 104 /uL (0-23.9); URINE UROBILINOGEN 0.2 mg/dL (0.2-1.0); URINE WBC 6 /uL (0-25.8)
[2021-09-02 22:46] LABS: ACTIVATED PTT 30.3 SECONDS (25.2-36.5)
[2021-09-02 23:04] LABS: BLOOD UREA NITROGEN 39.2 mg/dL (7-18)
[2021-09-02 23:06] LABS: BILIRUBIN,DIRECT 0.6 mg/dL (0.0-0.2)
[2021-09-02 23:07] LABS: CREATININE 0.9 mg/dL (0.55-1.3)
[2021-09-02 23:08] LABS: BILIRUBIN,TOTAL 1.8 mg/dL (0.2-1); TOT PROT 5.5 g/dl (6.4-8.2)
[2021-09-02] MEDS ORDERED: SODIUM CHLORIDE 1,000 ML IV STA (23:14)
[2021-09-02] MEDS ORDERED: PANTOPRAZOLE SODIUM 40 MG VIAL ONE (23:46)
[2021-09-02 23:51] LABS: ANISOCYTOSIS 2+; MACROCYTOSIS 2+; TEAR DROP CELLS 1+
[2021-09-03] MEDS ORDERED: OCTREOTIDE ACETATE 50 MCG/1 ML - 1 ML VIAL IVPUSH ONE (01:50)
[2021-09-03] MEDS ORDERED: ACETAMINOPHEN 325 MG TABLET (FP) PO PRN (03:11)
[2021-09-03] MEDS: OCTREOTIDE ACETATE 200 MCG, OCTREOTIDE ACETATE 1,000 MCG in DEXTROSE 5%-WATER - 496 ML IVPB SCH (03:30)
[2021-09-03] MEDS ORDERED: SODIUM CHLORIDE 1,000 ML IV SCH (03:45)
[2021-09-03] MEDS ORDERED: FOLIC ACID INJECTION - 1 MG, THIAMINE HCL 100 MG, MULTIVIT INJECTION ADULT 10 ML in SOD... IVPB ONE (03:57)
[2021-09-03] MEDS: SODIUM CHLORIDE 1,000 ML IV SCH (06:05)
[2021-09-03] MEDS: INSULIN SLIDING SCALE (NOVOLOG) 1 VIAL SQ SCH ×3 (07:55→17:26)
[2021-09-03 08:20] LABS: BASO % 0.3 % (0-2.0); EOS % 0.5 % (0-4.5); HEMATOCRIT 29.4 % (35.4-49); HEMOGLOBIN 10.3 GM/dL (11.7-16.9); MCH 37.1 pg (25.7-33.7); MCHC 35.1 g/dl (32.0-35.9); MEAN CELL VOLUME 105.8 fl (80-96); MEAN PLT VOLUME 8.2 fl (7.5-11.1); MONO % 10.9 % (3.8-10.2); NEUT % 60.3 % (42.8-82.8); PLATELET COUNT 66 10^3/uL (134-434); RBC 2.78 M/mm3 (4.00-5.60); RDW 14.3 % (11.9-15.9); WHITE BLOOD COUNT 5.2 K/mm3 (4.0-10.0)
[2021-09-03 08:44] LABS: CALCIUM 8.5 mg/dL (8.5-10.1)
[2021-09-03 08:45] LABS: ALBUMIN 1.9 g/dl (3.4-5.0); BLOOD UREA NITROGEN 41.3 mg/dL (7-18)
[2021-09-03 08:48] LABS: CREATININE 0.8 mg/dL (0.55-1.3)
[2021-09-03 08:50] LABS: BILIRUBIN,TOTAL 1.7 mg/dL (0.2-1); TOT PROT 4.9 g/dl (6.4-8.2)
[2021-09-03] MEDS ORDERED: CEFTRIAXONE 1 GM/50 ML BAG ONE (09:10)
[2021-09-03] MEDS: CEFTRIAXONE 1 GM in DEXTROSE 5%-WATER - 50 ML IVPB SCH (09:33)
[2021-09-03] MEDS ORDERED: PANTOPRAZOLE SODIUM 40 MG VIAL IVPUSH SCH (10:00)
[2021-09-03] MEDS: PANTOPRAZOLE SODIUM 160 MG in SODIUM CHLORIDE 290 ML IVPB SCH (10:55)
[2021-09-03 14:20] LABS: BASO % 0.4 % (0-2.0); EOS % 1.9 % (0-4.5); HEMATOCRIT 26.6 % (35.4-49); HEMOGLOBIN 9.5 GM/dL (11.7-16.9); INR 1.48 (0.83-1.09); LYMPH % 31.4 % (8-40); MCH 37.4 pg (25.7-33.7); MCHC 35.5 g/dl (32.0-35.9); MEAN CELL VOLUME 105.2 fl (80-96); MEAN PLT VOLUME 8.2 fl (7.5-11.1); MONO % 13.4 % (3.8-10.2); NEUT % 52.9 % (42.8-82.8); PLATELET COUNT 65 10^3/uL (134-434); PROTHROMBIN TIME (PATIENT) 17.1 SEC (9.7-13.0); RBC 2.53 M/mm3 (4.00-5.60); RDW 14.3 % (11.9-15.9); WHITE BLOOD COUNT 4.4 K/mm3 (4.0-10.0)
[2021-09-04] MEDS: INSULIN SLIDING SCALE (NOVOLOG) 1 VIAL SQ SCH ×3 (06:02→17:04)
[2021-09-04] MEDS: SODIUM CHLORIDE 1,000 ML IV SCH (06:41)
[2021-09-04] MEDS: PANTOPRAZOLE SODIUM 160 MG in SODIUM CHLORIDE 290 ML IVPB SCH (06:41)
[2021-09-04] MEDS: OCTREOTIDE ACETATE 200 MCG, OCTREOTIDE ACETATE 1,000 MCG in DEXTROSE 5%-WATER - 496 ML IVPB SCH (06:41)
[2021-09-04 07:32] LABS: BASO % 0.4 % (0-2.0); EOS % 2.3 % (0-4.5); HEMATOCRIT 23.9 % (35.4-49); HEMOGLOBIN 8.4 GM/dL (11.7-16.9); LYMPH % 32.4 % (8-40); MCH 37.1 pg (25.7-33.7); MCHC 35.3 g/dl (32.0-35.9); MEAN CELL VOLUME 105.2 fl (80-96); MEAN PLT VOLUME 8.1 fl (7.5-11.1); MONO % 11.5 % (3.8-10.2); NEUT % 53.4 % (42.8-82.8); PLATELET COUNT 62 10^3/uL (134-434); RBC 2.27 M/mm3 (4.00-5.60); RDW 14.6 % (11.9-15.9); WHITE BLOOD COUNT 3.5 K/mm3 (4.0-10.0)
[2021-09-04 07:41] LABS: INR 1.52 (0.83-1.09); PROTHROMBIN TIME (PATIENT) 17.5 SEC (9.7-13.0)
[2021-09-04 07:55] LABS: ALBUMIN 1.8 g/dl (3.4-5.0); BLOOD UREA NITROGEN 32.9 mg/dL (7-18)
[2021-09-04 07:57] LABS: MAGNESIUM 1.4 mg/dL (1.8-2.4)
[2021-09-04 07:58] LABS: BILIRUBIN,DIRECT 0.5 mg/dL (0.0-0.2); PHOSPHOROUS 3.4 mg/dL (2.5-4.9)
[2021-09-04 07:59] LABS: CREATININE 0.9 mg/dL (0.55-1.3)
[2021-09-04 08:00] LABS: BILIRUBIN,TOTAL 1.6 mg/dL (0.2-1)
[2021-09-04 08:01] LABS: TOT PROT 4.6 g/dl (6.4-8.2)
[2021-09-04] MEDS ORDERED: MAGNESIUM OXIDE 400 MG TABLET (FP) PO ONE (08:15)
[2021-09-04] MEDS ORDERED: OCTREOTIDE ACETATE 200 MCG, OCTREOTIDE ACETATE 1,000 MCG in DEXTROSE 5%-WATER - 496 ML IVPB SCH ×2 (08:15→12:03)
[2021-09-04] MEDS ORDERED: DEXTROSE 5%-WATER - 50 ML IVPB ONE (09:24)
[2021-09-04] MEDS ORDERED: cefTRIAXone SODIUM 1 GM VIAL ONE (09:24)
[2021-09-04] MEDS: CEFTRIAXONE 1 GM in DEXTROSE 5%-WATER - 50 ML IVPB SCH (09:50)
[2021-09-04] MEDS ORDERED: PHYTONADIONE 10 MG/1 ML AMP IVPB ONE (11:30)
[2021-09-04] MEDS: CARVEDILOL 25 MG TABLET (FP) PO SCH (16:54)
[2021-09-05] MEDS: PANTOPRAZOLE SODIUM 160 MG in SODIUM CHLORIDE 290 ML IVPB SCH ×2 (01:42→21:07)
[2021-09-05] MEDS: INSULIN SLIDING SCALE (NOVOLOG) 1 VIAL SQ SCH ×3 (06:44→16:46)
[2021-09-05 06:58] LABS: BASO % 0.5 % (0-2.0); EOS % 2.3 % (0-4.5); HEMATOCRIT 23.5 % (35.4-49); HEMOGLOBIN 8.4 GM/dL (11.7-16.9); LYMPH % 39.6 % (8-40); MCH 37.6 pg (25.7-33.7); MCHC 35.6 g/dl (32.0-35.9); MEAN CELL VOLUME 105.6 fl (80-96); MEAN PLT VOLUME 8.1 fl (7.5-11.1); NEUT % 41.6 % (42.8-82.8); PLATELET COUNT 59 10^3/uL (134-434); RBC 2.23 M/mm3 (4.00-5.60); WHITE BLOOD COUNT 2.4 K/mm3 (4.0-10.0)
[2021-09-05 07:03] LABS: CHLORIDE 113 mmol/L (98-107); SODIUM 143 mmol/L (136-145)
[2021-09-05 07:08] LABS: ALBUMIN 1.8 g/dl (3.4-5.0)
[2021-09-05 07:09] LABS: ANION GAP 6 MMOL/L (8-16); CO2 24 mmol/L (21-32); GLUCOSE,RANDOM 239 mg/dL (74-106)
[2021-09-05 07:10] LABS: INR 1.5 (0.83-1.09); PROTHROMBIN TIME (PATIENT) 17.3 SEC (9.7-13.0)
[2021-09-05 07:11] LABS: BLOOD UREA NITROGEN 16.4 mg/dL (7-18)
[2021-09-05 07:12] LABS: BILIRUBIN,DIRECT 0.5 mg/dL (0.0-0.2); CREATININE 0.9 mg/dL (0.55-1.3); SGOT/AST 42 U/L (15-37)
[2021-09-05 07:13] LABS: SGPT/ALT 31 U/L (13-61)
[2021-09-05 07:14] LABS: BILIRUBIN,TOTAL 1.6 mg/dL (0.2-1); TOT PROT 4.6 g/dl (6.4-8.2)
[2021-09-05 07:15] LABS: ALK PHOS 68 U/L (45-117)
[2021-09-05 07:18] LABS: CALCIUM 6.9 mg/dL (8.5-10.1)
[2021-09-05] MEDS ORDERED: DEXTROSE 5%-WATER - 50 ML IVPB ONE (09:29)
[2021-09-05] MEDS ORDERED: cefTRIAXone SODIUM 1 GM VIAL ONE (09:29)
[2021-09-05] MEDS ORDERED: NADOLOL 40 MG TABLET (FP) PO SCH (10:00)
[2021-09-05] MEDS: CEFTRIAXONE 1 GM in DEXTROSE 5%-WATER - 50 ML IVPB SCH (11:13)
[2021-09-05] MEDS: CARVEDILOL 25 MG TABLET (FP) PO SCH (11:14)
[2021-09-05] MEDS ORDERED: OCTREOTIDE ACETATE 200 MCG, OCTREOTIDE ACETATE 1,000 MCG in DEXTROSE 5%-WATER - 496 ML IVPB SCH (11:56)
[2021-09-05 18:55] LABS: BASO % 0.4 % (0-2.0); EOS % 2.2 % (0-4.5); HEMATOCRIT 24.6 % (35.4-49); HEMOGLOBIN 8.7 GM/dL (11.7-16.9); LYMPH % 31.8 % (8-40); MCHC 35.3 g/dl (32.0-35.9); MEAN CELL VOLUME 104.7 fl (80-96); MONO % 16.8 % (3.8-10.2); NEUT % 48.8 % (42.8-82.8); PLATELET COUNT 62 10^3/uL (134-434); RBC 2.35 M/mm3 (4.00-5.60); RDW 15.6 % (11.9-15.9); WHITE BLOOD COUNT 2.4 K/mm3 (4.0-10.0)
[2021-09-06] MEDS: PANTOPRAZOLE SODIUM 160 MG in SODIUM CHLORIDE 290 ML IVPB SCH (02:10)
[2021-09-06] MEDS: INSULIN SLIDING SCALE (NOVOLOG) 1 VIAL SQ SCH ×2 (06:43→12:57)
[2021-09-06 08:33] LABS: BASO % 0.7 % (0-2.0); EOS % 2.5 % (0-4.5); HEMATOCRIT 23.7 % (35.4-49); HEMOGLOBIN 8.5 GM/dL (11.7-16.9); LYMPH % 36.2 % (8-40); MCH 37.7 pg (25.7-33.7); MEAN CELL VOLUME 104.5 fl (80-96); MEAN PLT VOLUME 8.1 fl (7.5-11.1); MONO % 17.1 % (3.8-10.2); NEUT % 43.5 % (42.8-82.8); PLATELET COUNT 54 10^3/uL (134-434); RBC 2.27 M/mm3 (4.00-5.60); RDW 15.2 % (11.9-15.9); WHITE BLOOD COUNT 2.4 K/mm3 (4.0-10.0)
[2021-09-06 08:42] LABS: CALCIUM 7.2 mg/dL (8.5-10.1)
[2021-09-06 08:43] LABS: ALBUMIN 1.8 g/dl (3.4-5.0); MAGNESIUM 1.5 mg/dL (1.8-2.4)
[2021-09-06 08:46] LABS: CREATININE 0.8 mg/dL (0.55-1.3); PHOSPHOROUS 1.9 mg/dL (2.5-4.9)
[2021-09-06 08:47] LABS: BILIRUBIN,TOTAL 1.7 mg/dL (0.2-1); TOT PROT 4.6 g/dl (6.4-8.2)
[2021-09-06] MEDS ORDERED: PANTOPRAZOLE 40 MG TABLET PO SCH (10:00)
[2021-09-06] MEDS: CARVEDILOL 25 MG TABLET (FP) PO SCH (12:05)
[2021-09-06 12:06] VITALS: BP 186/80; PULSE 62; TEMP 98.9
== END 2021-09-06 13:37 | disposition short-term general hospital (02) | DRG 300 ==
LOC: JER 20:31 → JERBED 09-03 01:52 → J4W 09-03 12:06
PROVIDERS: ADMIT Hospitalist
PROC: 0DJ08ZZ Inspection of Upper Intestinal Tract, Via Natural or Artificial Opening Endoscopic (ICD-10-PCS; principal; 2021-09-04 13:30)
DX: I86.4 Gastric varices (principal); K92.2 Gastrointestinal hemorrhage, unspecified; E72.20 Disorder of urea cycle metabolism, unspecified; I85.00 Esophageal varices without bleeding; K70.30 Alcoholic cirrhosis of liver without ascites; E11.9 Type 2 diabetes mellitus without complications; I10 Essential (primary) hypertension; E78.5 Hyperlipidemia, unspecified; D69.6 Thrombocytopenia, unspecified; F10.20 Alcohol dependence, uncomplicated; D64.9 Anemia, unspecified; I25.10 Atherosclerotic heart disease of native coronary artery without angina pectoris; Z98.61 Coronary angioplasty status
CPT/HCPCS: 36415; 70450-TC; 71046-TC-FY; 71260-TC; 74177-TC; 80048; 80053; 80076; 80307; 81003; 82140; 82248; 82272; 82728; 82962; 83540; 83550; 83735; 84100; 85025; 85610; 85730; 86850; 86900; 86901; 93005; 93010; 97116-GP; 97162-GP; 99285-25; C9803; U0003; U0005

== ENCOUNTER → 2021-09-27 | Emergency (ER) | payer OTHER, BC ==
[2021-09-27 14:52] VITALS: BP 148/95; PULSE 84; TEMP 98.1; BMI 22.7
== END | disposition left against medical advice (07) ==
LOC: JER 14:36
DX: K74.60 Unspecified cirrhosis of liver (principal); R18.8 Other ascites; F10.20 Alcohol dependence, uncomplicated
CPT/HCPCS: 99283-25

== ENCOUNTER 2024-04-22 12:01 | Inpatient (IN) | payer OTHER, BC ==
[2024-04-22 12:35] VITALS: RESP 18
[2024-04-22 14:38] LABS: BASO % 0.1 % (0-2.0); HEMATOCRIT 20.4 % (35.4-49); LYMPH % 7.2 % (8-40); MCH 32.6 pg (25.7-33.7); MCHC 31.5 g/dl (32.0-35.9); MEAN CELL VOLUME 103.6 fl (80-96); MEAN PLT VOLUME 7.9 fl (7.5-11.1); MONO % 4.4 % (3.8-10.2); NEUT % 88.3 % (42.8-82.8); PLATELET COUNT 347 10^3/uL (134-434); RBC 1.97 M/mm3 (4.00-5.60); RDW 15.9 % (11.9-15.9); VENOUS O2 SATURATION 34.5 % (70-80); VENOUS PCO2 31.5 mmHg (38-52); VENOUS PH 7.263 (7.310-7.410); WHITE BLOOD COUNT 13.8 K/mm3 (4.0-10.0)
[2024-04-22 14:43] LABS: HEMOGLOBIN 6.4 GM/dL (11.7-16.9)
[2024-04-22 14:47] LABS: INR 1.73 (0.83-1.09); PROTHROMBIN TIME (PATIENT) 19.6 SEC (9.7-13.0)
[2024-04-22 14:49] LABS: ACTIVATED PTT 34.1 SECONDS (25.2-36.5)
[2024-04-22 15:08] LABS: CHLORIDE 104 mmol/L (98-107); SODIUM 131 mmol/L (136-145)
[2024-04-22 15:10] LABS: ALBUMIN 2.1 g/dl (3.4-5.0); BLOOD UREA NITROGEN 45.6 mg/dL (7-18); CALCIUM 8.5 mg/dL (8.5-10.1); CO2 14 mmol/L (21-32); GLUCOSE,RANDOM 186 mg/dL (74-106)
[2024-04-22 15:12] LABS: SGPT/ALT 495 U/L (13-61)
[2024-04-22 15:14] LABS: CREATININE 3.4 mg/dL (0.55-1.3)
[2024-04-22 15:15] LABS: BILIRUBIN,TOTAL 1.7 mg/dL (0.2-1)
[2024-04-22 15:16] LABS: ALK PHOS 157 U/L (45-117); TOT PROT 6.7 g/dl (6.4-8.2)
[2024-04-22 15:30] LABS: ANION GAP 13 mmol/L (4-13); LACTIC ACID 8.2 mmol/L (0.4-2.0); POTASSIUM 8.2 mmol/L (3.5-5.1); SGOT/AST 1106 U/L (15-37)
[2024-04-22] MEDS ORDERED: ALBUMIN HUMAN 25% 12.5 GM/50 ML VIAL IV SCH (15:45)
[2024-04-22] MEDS ORDERED: DEXTROSE 50%-WATER 25 GM/50 ML DISP.SYRIN ONE (16:00)
[2024-04-22] MEDS ORDERED: SODIUM ZIRCONIUM CYCLOSILICATE (LOKELMA) 10 GM PACKET ONE (16:01)
[2024-04-22] MEDS ORDERED: INSULIN REGULAR HUMAN 100 UNITS/ML *VIAL ONE ×3 (16:01→16:05)
[2024-04-22] MEDS ORDERED: CALCIUM GLUC IN NACL, ISO-OSM 1 GM/50 ML BAG IVPB ONE ×2 (16:01→17:18)
[2024-04-22] MEDS: SODIUM ZIRCONIUM CYCLOSILICATE (LOKELMA) 5 GM PACKET PO ONE (16:27)
[2024-04-22] MEDS: INSULIN REGULAR HUMAN 100 UNITS/ML *VIAL IVPUSH ONE (16:27)
[2024-04-22] MEDS: DEXTROSE 50%-WATER - 25 GM/50 ML VIAL IVPUSH ONE (16:27)
[2024-04-22] MEDS: CALCIUM GLUCONATE 10% - 1,000 MG/10 ML VIAL IVPB ONE (16:28)
[2024-04-22] MEDS: CALCIUM GLUC IN NACL, ISO-OSM 1 GM/50 ML BAG IVPB ONE (16:31)
[2024-04-22] MEDS: SODIUM BICARBONATE 8.4% 50 MEQ/50 ML DISP.SYRIN IVPUSH ONE (16:34)
[2024-04-22] MEDS: CALCIUM GLUCONATE 10% - 1,000 MG/10 ML VIAL IVPUSH ONE (17:22)
[2024-04-22 18:35] LABS: CHLORIDE 102 mmol/L (98-107); SODIUM 131 mmol/L (136-145)
[2024-04-22] MEDS ORDERED: morphine SULFATE 4 MG/ML VIAL ONE (18:35)
[2024-04-22 18:36] LABS: POTASSIUM 6.8 mmol/L (3.5-5.1)
[2024-04-22 18:37] LABS: ANION GAP 15 mmol/L (4-13); CO2 14 mmol/L (21-32); GLUCOSE,RANDOM 285 mg/dL (74-106)
[2024-04-22 18:40] LABS: CREATININE 3.5 mg/dL (0.55-1.3)
[2024-04-22] MEDS: morphine CARPU-JECT 4 MG/1 ML DISP.SYRIN IVPUSH ONE (18:42)
[2024-04-22 20:14] LABS: EPI CELLS 4 /uL (0-25.1); HYALINE CASTS 1 /uL (0-3.1); URINE APPEARANCE CLOUDY; URINE BACTERIA 11 /uL (0-1359); URINE BILIRUBIN 1+ (NEGATIVE); URINE COLOR DK YELLOW; URINE GLUCOSE (UA) TRACE (NEGATIVE); URINE KETONE TRACE (NEGATIVE); URINE LEUK ESTERASE TRACE (NEGATIVE); URINE NITRITE NEGATIVE (NEGATIVE); URINE PROTEIN 1+ (NEGATIVE); URINE WBC 9 /uL (0-25.8)
[2024-04-22] MEDS ORDERED: MORPHINE SULFATE 2 MG/ML SYRINGE ONE (21:01)
[2024-04-22 21:02] LABS: URINE RBC 62.6 /uL (0-23.9)
[2024-04-22] MEDS: MORPHINE SULFATE 2 MG/ML SYRINGE IVPUSH ONE (21:19)
[2024-04-22] MEDS ORDERED: MORPHINE SULFATE/0.9% NACL/PF 100 MG/100 ML BAG ONE (21:20)
[2024-04-22] MEDS: MORPHINE SULFATE/0.9% NACL/PF 100 MG/100 ML BAG IVPB SCH (21:38)
[2024-04-22 23:34] VITALS: BP 113/62; PULSE 86; TEMP 98.2; BMI 20.5
[2024-04-23] MEDS: MORPHINE 100 MG/100 ML MG IVPB SCH (01:40)
== END 2024-04-23 06:30 | disposition expired | DRG 436 ==
LOC: JER 12:01 → JERBED 15:43 → J5S 23:20
PROVIDERS: ADMIT Internal Medicine
DX: C22.0 Liver cell carcinoma (principal); E87.20 Acidosis, unspecified; N17.9 Acute kidney failure, unspecified; E11.9 Type 2 diabetes mellitus without complications; K70.31 Alcoholic cirrhosis of liver with ascites; I12.9 Hypertensive chronic kidney disease with stage 1 through stage 4 chronic kidney disease, or unspecified chronic kidney disease; D64.9 Anemia, unspecified; E78.5 Hyperlipidemia, unspecified; I25.10 Atherosclerotic heart disease of native coronary artery without angina pectoris; E87.5 Hyperkalemia; Z95.1 Presence of aortocoronary bypass graft; I10 Essential (primary) hypertension
CPT/HCPCS: 0241U-QW; 36415; 71045-TC-FY; 80048; 80053; 81003; 82140; 82550; 82803; 83605; 84484; 85025; 85610; 85730; 86870; 86880; 86902; 86922; 87040; 87086; 93005; 93010; 99285-25